=== PATIENT | female | born 1950 | race Caucasian/White ===

== ENCOUNTER → 2017-11-20 12:00 | Outpatient (CLI) | payer OTHER, SELFPAY ==
[2017-11-20 14:04] LABS: Absolute Lymphocyte Count 1.81 X10^3/ul (0.83-4.51); Basophil# 0.02 X10^3/uL; Basophil% 0.2 % (0-1); Eosinophils% 2.3 % (0-5); Hematocrit 39.4 % (37-47); Hemoglobin 12.9 g/dl (12.0-15.0); Lymphocyte # 1.81 X10^3/ul (4.0); Lymphocyte % 20.9 % (19-41); Mean Corp Hgb Conc 32.7 g/gl (32-36); Mean Corpuscular Hgb 29.1 pg (27.0-32.0); Mean Corpuscular Volume 88.7 fL (81-99); Mean Platelet Vol. 10.6 fl (6.2-12.0); Monocyte# 0.61 X10^3/uL; Monocyte% 7.1 % (0-10); Neutrophil # 5.99 X10^3/uL (2.7-7.7); Neutrophil % 69.3 % (47-70); Platelet Count 298 K/mm3 (150-450); RBC Distribution Width CV 14.5 % (11.6-14.6); Red Blood Count 4.44 M/mm3 (4.2-5.4); White Blood Count 8.7 K/mm3 (4.4-11.0)
[2017-11-20 14:05] LABS: POSITIVE COUNT NO; POSITIVE DIFFERENTIAL NO; POSITIVE MORPHOLOGY NO
[2017-11-20 14:20] LABS: ALB/GLOB Ratio 0.8 RATIO (0.9-2.4); AST(SGOT) 16 U/L (15-37); Alanine Aminotransfer ALT/SGPT 19 U/L (12-78); Albumin, Serum 3.4 g/dL (3.4-5.0); Alkaline Phosphatase 60 U/L (45-117); Anion Gap 7 (5-15); BUN 22 mg/dL (7-18); BUN/Creat Ratio 19.1 RATIO (10-20); Calcium,Total 8.9 mg/dL (8.5-10.1); Chloride 103 mmol/L (98-107); Creatinine, Serum 1.15 mg/dL (0.55-1.02); EST Glomerular Filtration Rate 50 mL/min (>60); Est Glom Filt Rate - Afr Amer 61 mL/min (>60); Globulin 4.3 g/dL (2.2-4.2); Glucose 101 mg/dL (70-110); Potassium 3.3 mmol/L (3.5-5.1); Protein, Total 7.7 g/dL (6.4-8.2); Sodium Level 140 mmol/L (136-145)
== END ==
PROVIDERS: Family Provider Family Medicine; PCP Family Medicine; Visit Provider Family Medicine
DX: K58.9 Irritable bowel syndrome, unspecified (principal)
CPT/HCPCS: 36415; 80053; 85025

== ENCOUNTER → 2018-02-22 09:47 | Outpatient (CLI) | payer OTHER, SELFPAY ==
[2018-02-22 12:49] LABS: Anion Gap 9 (5-15); BUN 21 mg/dL (7-18); BUN/Creat Ratio 16.9 RATIO (10-20); Calcium,Total 8.7 mg/dL (8.5-10.1); Chloride 104 mmol/L (98-107); Cholesterol 187 mg/dL (200); Creatinine, Serum 1.24 mg/dL (0.55-1.02); EST Glomerular Filtration Rate 46 mL/min (>60); Est Glom Filt Rate - Afr Amer 56 mL/min (>60); Glucose 84 mg/dL (74-106); High Density Lipoprotein 51 mg/dL; Potassium 2.9 mmol/L (3.5-5.1); Sodium Level 142 mmol/L (136-145); Triglycerides 103 mg/dL; Very Low Density Lipoprotein 21 mg/dL (5-40)
[2018-02-22 12:56] LABS: Vitamin D,25 Hydroxy 55.5 ng/mL (29.95-100.01)
== END ==
PROVIDERS: Family Provider Family Medicine; PCP Family Medicine; Visit Provider Family Medicine
DX: I10 Essential (primary) hypertension (principal); E55.9 Vitamin D deficiency, unspecified
CPT/HCPCS: 36415; 80048; 80061; 82306

== ENCOUNTER → 2018-03-02 09:50 | Outpatient (CLI) | payer OTHER, SELFPAY ==
[2018-03-02 12:20] LABS: Anion Gap 8 (5-15); BUN 17 mg/dL (7-18); Calcium,Total 8.7 mg/dL (8.5-10.1); Chloride 106 mmol/L (98-107); Creatinine, Serum 1.21 mg/dL (0.55-1.02); EST Glomerular Filtration Rate 47 mL/min (>60); Est Glom Filt Rate - Afr Amer 57 mL/min (>60); Glucose 82 mg/dL (74-106); Potassium 3.7 mmol/L (3.5-5.1); Sodium Level 140 mmol/L (136-145)
== END ==
PROVIDERS: Family Provider Family Medicine; PCP Family Medicine; Visit Provider Family Medicine
DX: I10 Essential (primary) hypertension (principal)
CPT/HCPCS: 36415; 80048

== ENCOUNTER → 2018-05-10 09:33 | Outpatient (CLI) | payer OTHER, SELFPAY ==
--- NOTE | 2018-05-10 09:36 | ECHOCS_ITS ---
Reason For Study: AFIB-FLUTTER Procedure This was a 2D Doppler, Color Flow transthoracic echocardiogram. Exam performed in department. Left Ventricle Normal LV size. Mild concentric left ventricular hypertrophy. Left ventricular systolic function is normal. Septal motion consistent with IVCD. The estimated ejection fraction is 53 %. No regional wall motion abnormalities noted. Right Ventricle Normal RV size. ICD or pacer leads identified within the right ventricle. Normal systolic function. Atria The left atrium is moderately enlarged. The right atrium is mildly enlarged. Mitral Valve Normal mitral valve. Mild-Moderate (1-2+) eccentric mitral valve insufficiency. Tricuspid Valve Normal tricuspid valve. Mild (1+) tricuspid valve insufficiency. Pulmonary artery systolic pressure is 42 mmHg. Mild pulmonary hypertension. Aortic Valve Trisinus/trileaflet aortic valve. Mild focal aortic valve calcification. Mild (1+) eccentric aortic valve insufficiency. Pulmonic Valve Normal pulmonic valve. Great Vessels Normal aortic root. The pulmonary artery is normal size. Normal inferior vena cava. Pericardium/Pleural No pericardial effusion. Medication 22 gauge I.V. with prn adaptor inserted into right arm. Diluted definity 4ml given slow IV push to enhance endocardial definition. MMode/2D Measurements & Calculations LVIDd: 5.2 cm IVSd: 1.2 cm LVOT diam: 4.6 cm LVIDs: 4.3 cm LVPWd: 1.2 cm LVOT area: 16.6 cm2 RVDd: 3.4 cm FS: 18.0 % Ao root diam: 3.6 cm LAV(MOD-bp): 123.4 ml EDV(MOD-sp4): 149.1 ml LA dimension: 4.6 cm LAV(MOD-bp) Indexed: 60.1 ml/m2 ESV(MOD-sp4): 116.3 ml LAV(MOD-sp2): 129.9 ml EF(MOD-sp4): 22.0 % LAV(MOD-sp4): 112.5 ml SV(MOD-sp4): 32.8 ml LA A4 area: 31.4 cm2 RA A4 area: 23.9 cm2 Time Measurements MV dec time: 0.21 sec Doppler Measurements & Calculations MV E max jelena: 96.6 cm/sec Ao V2 max: 147.8 cm/sec LV V1 max: 81.9 cm/sec MV A max jelena: 35.2 cm/sec Ao max P.7 mmHg LV V1 max P.7 mmHg MV E/A: 2.7 DELMA(V,D): 9.2 cm2 PA V2 max: 107.6 cm/sec TR max jelena: 307.3 cm/sec TR max P.8 mmHg Interpretation Summary Normal LV size. Mild concentric left ventricular hypertrophy. Left ventricular systolic function is normal. The estimated ejection fraction is 53 %. Mild focal aortic valve calcification. Mild (1+) eccentric aortic valve insufficiency. Septal motion consistent with IVCD. Pulmonary artery systolic pressure is 42 mmHg. Mild pulmonary hypertension. Ordering Physician: Shahid Alejandro Referring Physician: JOYCELYN GARCIA Performed By: Roseann Lyon RDCS
== END ==
PROVIDERS: Family Provider Family Medicine; PCP Family Medicine; Visit Provider Internal Medicine Cardiovascular Disease
DX: I48.91 Unspecified atrial fibrillation (principal); I48.92 Unspecified atrial flutter
CPT/HCPCS: 93306; Q9957; A4216; C8929

== ENCOUNTER 2018-08-04 04:44 | Emergency (ER) | payer MEDICARE, OTHER, SELFPAY ==
[2018-08-04 04:45] VITALS: BP 147/86; PULSE 58; RESP 20; TEMP 36.8; O2SAT 94; BMI 41.7
--- NOTE | 2018-08-04 04:56 | RAD_ITS ---
STUDY: X-RAY - RIGHT ANKLE REASON FOR EXAM: Female, 67 years old. Pain adjacent to the right lateral malleolus. TECHNIQUE: 3 view(s) of the ankle. COMPARISON: None. FINDINGS: Normal visualized distal tibia and fibula. Normal medial and lateral malleoli. Normal tibiotalar articulation and ankle mortise. Normal visualized talus and calcaneus. The visualized subtalar, talonavicular, calcaneocuboid and tarsal articulations are normal. Mild ankle swelling. RAD/Ankle min 3 Views IMPRESSION: Mild ankle swelling. No fracture identified. Electronically Signed: Brijesh Mcleod MD at 5:48 EDT , Service support ,
--- NOTE | 2018-08-04 04:57 | ED.VISSUMM ---
- ER Visit Summary Date of Service: 08/04/18 Chief Complaint: Right ankle pain History of Present Illness: The patient is a 67 F presents for evaluation of right ankle pain and swelling. Yesterday sitting cross ankle, states had that position for an hour, felt her foot go to sleep. States change positions, paresthesia improved however pain started. History of osteoporosis. Denies any blunt injuries. Took 2 Tylenols yesterday. History of atrial fibrillation on Xarelto for the past year. No history of fractures. Patient with pain just wanted to make sure there is no fractures. Physical Examination: General: Alert and oriented ?3, no acute distress HEENT: Normocephalic, atraumatic. Moist mucosa membranes Neck: supple, nontender. Cardiovascular: Irregular rhythm, Respiratory: Normal breath sounds, symmetric, no distress Abdomen: Soft, nontender, nondistended Extremities: Right lower extremity: Tender palpation lateral malleolus, no medial malleolus tenderness. No knee tenderness. No foot tenderness. Skin intact. DP pulses intact. Neuro: no focal neurological deficits. Test Results: Right ankle x-ray: No fracture or dislocation. Mild soft tissue swelling. Emergency Department Course: Ice is placed. Declined any additional medications. X-ray negative for fracture dislocation. Plan Vicente wrap. She is able to ambulate. She continue Tylenol. Patient on Xarelto, pulses intact distally, low likelihood of any blood clots. Discussed treating as contusion with rice therapy. Patient monitor symptoms follow-up with PCP. All questions were answered. Treatment Plan: [] Disposition: Discharge Impression: Right ankle contusion This note was generated with [employer] dictation software. It may contain incorrect words, spelling, and punctuation that were not noted in review of the chart prior to signing ED Disposition - Plan for ED Patient: Disposition: Home or Assisted Living Chief Complaint: Lower Extremity Injury Diagnosis: Contusion of right ankle Instructions: ED Contusion Lower Ext Referrals: Norberto Shearer MD [Primary Care Provider] - 5-7 Days Additional Instructions: Negative x-ray. Continue Tylenol every 6 hours as needed. Continue to ice and elevate.
[2018-08-04 06:00] VITALS: BP 138/72; PULSE 88; RESP 16; O2SAT 99
== END 2018-08-04 06:00 | disposition home or self-care (01) ==
PROVIDERS: Emergency Provider Emergency Medicine; Family Provider Family Medicine; PCP Family Medicine
DX: S90.01XA Contusion of right ankle, initial encounter (principal); I48.91 Unspecified atrial fibrillation; J44.9 Chronic obstructive pulmonary disease, unspecified; K21.9 Gastro-esophageal reflux disease without esophagitis; I10 Essential (primary) hypertension; E78.00 Pure hypercholesterolemia, unspecified; Z79.02 Long term (current) use of antithrombotics/antiplatelets; Z79.51 Long term (current) use of inhaled steroids; Z79.82 Long term (current) use of aspirin; Z79.899 Other long term (current) drug therapy; X50.1XXA Overexertion from prolonged static or awkward postures, initial encounter; Y93.89 Activity, other specified; Y92.89 Other specified places as the place of occurrence of the external cause; Y99.8 Other external cause status
CPT/HCPCS: 73610; 99282

== ENCOUNTER → 2018-11-03 08:48 | Outpatient (CLI) | payer MEDICARE, SELFPAY ==
--- NOTE | 2018-11-03 08:52 | BI_ITS ---
MAMMOGRAPHY - BILATERAL SCREENING REASON FOR EXAM: Female, 68 years old. Routine annual screening examination. PERTINENT HISTORY: Non-contributory. TECHNIQUE: Digital bilateral breast gene (3D mammographic acquisition) in the CC and MLO projections. 2-D mediolateral oblique (MLO) and craniocaudad (CC) views of both breasts were obtained. CAD: Full Field Digital Mammography with Computer Added Detection was performed. COMPARISON: Comparison is made with prior study dated August 27, 2017. FINDINGS: Breast Composition: There are scattered areas of fibroglandular density. There are no dominant masses or suspicious calcifications. Stable 8 mm x 4 mm well-defined nodule in the retroareolar region this is unchanged. Once again, a pacemaker battery pack is seen in the left axillary region. No other significant abnormalities are identified. There has been no significant change since the prior study. BI/SCREENING MAMM (CAD), BILAT IMPRESSION: Stable bilateral screening mammogram. Yearly follow-up mammogram recommended. (A) ASSESSMENT CATEGORY: BIRADS Category 2: Benign. A letter regarding these results will be sent to the patient by the facility within 30 days. Approximately 10% of breast cancers are not detected by mammography. A normal mammogram should not delay biopsy of a clinically suspicious abnormality. [id number] Electronically Signed: López Kenney MD at 11:18 EST Tel [phone], Service support ,
== END ==
PROVIDERS: Family Provider Family Medicine; PCP Family Medicine; Visit Provider Nurse Practitioner Women's Health
DX: Z12.31 Encounter for screening mammogram for malignant neoplasm of breast (principal)
CPT/HCPCS: 77063; 77067

== ENCOUNTER → 2018-12-08 11:02 | Outpatient (CLI) | payer MEDICARE, OTHER, SELFPAY ==
[2018-11-03 09:55] VITALS: BMI 42.2
[2018-12-08 13:23] LABS: Anion Gap 10 (5-15); BUN 23 mg/dL (7-18); BUN/Creat Ratio 16.7 RATIO (10-20); Calcium,Total 9.6 mg/dL (8.5-10.1); Chloride 103 mmol/L (98-107); Cholesterol 218 mg/dL (200); Creatinine, Serum 1.38 mg/dL (0.55-1.02); EST Glomerular Filtration Rate 41 mL/min (>60); Est Glom Filt Rate - Afr Amer 49 mL/min (>60); Glucose 86 mg/dL (74-106); High Density Lipoprotein 54 mg/dL; Potassium 3.1 mmol/L (3.5-5.1); Sodium Level 141 mmol/L (136-145); Triglycerides 135 mg/dL; Very Low Density Lipoprotein 27 mg/dL (5-40)
== END ==
PROVIDERS: Family Provider Family Medicine; PCP Family Medicine; Visit Provider Family Medicine
DX: I10 Essential (primary) hypertension (principal)
CPT/HCPCS: 36415; 80048; 80061

== ENCOUNTER → 2019-01-10 10:43 | Outpatient (CLI) | payer MEDICARE, OTHER, SELFPAY ==
[2018-11-03 09:55] VITALS: BMI 42.2
[2019-01-10 10:47] LABS: Mucous, Urine 0 SEEN /hpf (<or=2+)
[2019-01-10 12:06] LABS: Color, Urine Yellow (Yellow); Glucose, Dipstick Normal (Normal); Ketone-Dipstick 5 mg/dl (Negative); Leukocyte Esterase-Dipstick 100 /ul (Negative); Nitrite-Dipstick Negative (Negative); Occult Blood-Urine 250 /ul (Negative); Protein-Dipstick 100 mg/dl (Negative); Urine Clarity Sl. Cloudy (Clear); Urine Urobilinogen 1 mg/dl (Normal)
[2019-01-10 12:08] LABS: Urine Bilirubin Dipstick 3 mg/dL (Negative)
[2019-01-10 12:11] LABS: White Blood Cells 5-10 SEEN /hpf (0-5)
[2019-01-10 12:12] LABS: Bacteria 1+ /hpf (None Seen); Hyaline Cast 10-25 SEEN /lpf (0-5); Red Blood Cells-Urine 5-10 SEEN /hpf (0-5); Squamous Epithelial Cells - UA 0-5 SEEN /hpf (5-10)
== END ==
PROVIDERS: Family Provider Family Medicine; PCP Family Medicine; Referring Provider Family Medicine; Visit Provider Family Medicine
DX: R31.9 Hematuria, unspecified (principal)
CPT/HCPCS: 81001

== ENCOUNTER → 2019-03-02 09:27 | Outpatient (CLI) | payer MEDICARE, OTHER, SELFPAY ==
[2018-11-03 09:55] VITALS: BMI 42.2
[2019-03-02 10:39] LABS: Anion Gap 7 (5-15); BUN 27 mg/dL (7-18); BUN/Creat Ratio 18.9 RATIO (10-20); Calcium,Total 9.5 mg/dL (8.5-10.1); Chloride 103 mmol/L (98-107); Creatinine, Serum 1.43 mg/dL (0.55-1.02); EST Glomerular Filtration Rate 39 mL/min (>60); Est Glom Filt Rate - Afr Amer 47 mL/min (>60); Glucose 100 mg/dL (74-106); Potassium 3.1 mmol/L (3.5-5.1); Sodium Level 141 mmol/L (136-145)
== END ==
PROVIDERS: Family Provider Family Medicine; PCP Family Medicine; Referring Provider Family Medicine; Visit Provider Family Medicine
DX: I10 Essential (primary) hypertension (principal)
CPT/HCPCS: 36415; 80048

== ENCOUNTER → 2019-03-16 | Outpatient (CLI) | payer MEDICARE, OTHER, SELFPAY ==
[2018-11-03 09:55] VITALS: BMI 42.2
[2019-03-16 10:49] LABS: Anion Gap 8 (5-15); BUN 22 mg/dL (7-18); BUN/Creat Ratio 19.8 RATIO (10-20); Calcium,Total 8.4 mg/dL (8.5-10.1); Chloride 110 mmol/L (98-107); Creatinine, Serum 1.11 mg/dL (0.55-1.02); EST Glomerular Filtration Rate 52 mL/min (>60); Est Glom Filt Rate - Afr Amer 63 mL/min (>60); Glucose 96 mg/dL (74-106); Potassium 3.9 mmol/L (3.5-5.1); Sodium Level 143 mmol/L (136-145)
== END | disposition home or self-care (01) ==
LOC: MFPLAB 08:49
PROVIDERS: Family Provider Family Medicine; PCP Family Medicine; Referring Provider Family Medicine; Visit Provider Family Medicine
DX: I10 Essential (primary) hypertension (principal)
CPT/HCPCS: 36415; 80048

== ENCOUNTER 2019-04-18 10:24 | Emergency (ER) | payer MEDICARE, OTHER, SELFPAY ==
[2018-11-03 09:55] VITALS: BMI 42.2
[2019-04-18 10:25] VITALS: BP 152/96; PULSE 81; RESP 17; TEMP 36.6; O2SAT 95; BMI 41.1
--- NOTE | 2019-04-18 12:35 | RAD_ITS ---
STUDY: X-RAY - LEFT FOOT CLINICAL: Female, 68 years old. TECHNIQUE: 3 view(s) of the foot. COMPARISON: None. FINDINGS: Normal talus, calcaneus, and tarsal bones. Normal visualized subtalar, talonavicular, calcaneocuboid, tarsal and tarsometatarsal articulations. Normal metatarsi. Normal metatarsophalangeal joint of the great toe. Normal tibial and fibular sesamoid bones. Normal interphalangeal joint of the great toe. Normal phalanges of the great toe. Normal second through fifth metatarsophalangeal joints. Normal interphalangeal joints and phalanges of the lesser toes. The soft tissue structures are unremarkable. There is minimal plantar heel spur RAD/Foot min 3 Views IMPRESSION: Minimal plantar fasciitis. No fracture or dislocation Electronically Signed: Jadiel Haider, at 13:30 EDT Tel , Service support ,
--- NOTE | 2019-04-18 14:14 | ED.VISSUMM ---
- ER Visit Summary Date of Service: 04/18/19 Chief Complaint: Left foot pain History of Present Illness: The patient is a 68 F with left foot pain for the past several days. Her left fourth toe is somewhat pulled forward and she has pain in the tendons across the top of her foot laterally. She does not know of any injury. Physical Examination: Vital signs grossly unremarkable. Patient sitting in a nance chair. She is in no acute distress. Left lower extremity examination reveals left fourth toe to be mild erythematous. Skin is not excessively warm but I would expect for cellulitis. There is no open wound. She has mild tenderness across the dorsal foot laterally. No ecchymosis or abrasions. Test Results: Left foot x-rays reveal minimal plantar fasciitis. No evidence of stress fracture. Emergency Department Course and Treatment: Patient was placed in Vicente wrap. I wrote her prescription for prednisone for tendinitis. She is scheduled to have cataract surgery in 3 days. She will talk to her surgeon before taking the medication to ensure that would not delay her surgery at all. Treatment Plan: [] Disposition: Discharge Impression: Tendinitis left foot This note was generated with [email or web address] dictation software. It may contain incorrect words, spelling, and punctuation that were not noted in review of the chart prior to signing ED Disposition - Plan for ED Patient: Disposition: Home or Assisted Living Instructions: Tendonitis Prescriptions: Prednisone [Deltasone] 40 mg PO DAILY #10 tab Prescription Printed Referrals: Norberto Shearer MD [Primary Care Provider] - 1 Week
[2019-04-18 14:23] VITALS: BP 144/96; PULSE 65; RESP 16; O2SAT 96
== END 2019-04-18 14:30 | disposition home or self-care (01) ==
PROVIDERS: Emergency Provider Emergency Medicine; Family Provider Family Medicine; PCP Family Medicine
DX: M77.52 Other enthesopathy of left foot and ankle (principal); I10 Essential (primary) hypertension; I27.20 Pulmonary hypertension, unspecified; I48.91 Unspecified atrial fibrillation; Z79.82 Long term (current) use of aspirin; Z79.899 Other long term (current) drug therapy
CPT/HCPCS: 73630; 99282

== ENCOUNTER → 2019-06-10 | Outpatient (CLI) | payer MEDICARE, OTHER, SELFPAY ==
[2019-05-05 09:06] VITALS: BMI 40.8
[2019-06-10 10:58] LABS: Anion Gap 7 (5-15); BUN 16 mg/dL (7-18); BUN/Creat Ratio 12.7 RATIO (10-20); Calcium,Total 8.8 mg/dL (8.5-10.1); Chloride 108 mmol/L (98-107); Cholesterol 169 mg/dL (200); Creatinine, Serum 1.26 mg/dL (0.55-1.02); EST Glomerular Filtration Rate 45 mL/min (>60); Est Glom Filt Rate - Afr Amer 54 mL/min (>60); Glucose 85 mg/dL (74-106); High Density Lipoprotein 47 mg/dL; Potassium 3.6 mmol/L (3.5-5.1); Sodium Level 142 mmol/L (136-145); Triglycerides 107 mg/dL; Very Low Density Lipoprotein 21 mg/dL (5-40)
== END | disposition home or self-care (01) ==
LOC: MTLAB 09:47
PROVIDERS: Family Provider Family Medicine; PCP Family Medicine; Referring Provider Family Medicine; Visit Provider Family Medicine
DX: I10 Essential (primary) hypertension (principal)
CPT/HCPCS: 36415; 80048; 80061

== ENCOUNTER → 2019-07-13 | Outpatient (CLI) | payer MEDICARE, OTHER, SELFPAY ==
[2019-05-05 09:06] VITALS: BMI 40.8
== END | disposition home or self-care (01) ==
PROVIDERS: Family Provider Family Medicine; PCP Family Medicine; Referring Provider Family Medicine; Visit Provider Family Medicine
DX: R19.7 Diarrhea, unspecified (principal)

== ENCOUNTER → 2019-07-14 | Outpatient (CLI) | payer MEDICARE, OTHER, SELFPAY ==
[2019-05-05 09:06] VITALS: BMI 40.8
== END | disposition home or self-care (01) ==
PROVIDERS: Family Provider Family Medicine; PCP Family Medicine; Referring Provider Family Medicine; Visit Provider Family Medicine
DX: R19.7 Diarrhea, unspecified (principal)
CPT/HCPCS: 87493; 87506

== ENCOUNTER 2019-08-25 12:21 | Observation (INO) | payer MEDICARE, OTHER, SELFPAY ==
[2019-05-05 09:06] VITALS: BMI 40.8
[2019-08-25 12:22] VITALS: BP 150/88; PULSE 85; RESP 18; TEMP 36.8; O2SAT 96; BMI 41.1
--- NOTE | 2019-08-25 12:35 | EKG12_ITS ---
Test Reason : SOB Blood Pressure : / mmHG Vent. Rate : 067 BPM Atrial Rate : 085 BPM P-R Int : 000 ms QRS Dur : 172 ms QT Int : 484 ms P-R-T Axes : 000 -63 114 degrees QTc Int : 511 ms Ventricular-paced rhythm Abnormal ECG Confirmed by MARCELA MCCARTHY, JOYCELYN ([id number]), scientific editor PEGGY MELTON ([id number]) on 08/29/2019 9:27:58 AM Referred By: NATA Confirmed By:JOYCELYN MEDRANO MD
--- NOTE | 2019-08-25 12:35 | RAD_ITS ---
STUDY: X-RAY CHEST REASON FOR EXAM: Female, 68 years old. One-month history of shortness of breath. TECHNIQUE: PA and lateral views of the chest. COMPARISON: Comparison is made with prior study dated January 02, 2016. FINDINGS: Mild degree of increased markings at the lung bases suggest lobar scarring. This is unchanged. Mild degree of vascular congestion. Blunting of both costophrenic angles posteriorly. There is mild cardiac enlargement. A left-sided dual-chamber pacemaker is seen. Normal mediastinum and celia. Normal visualized pulmonary arteries. There is atherosclerotic tortuosity of the aortic arch and descending thoracic aorta. There are diffuse degenerative changes of the visualized thoracic spine. Normal visualized ribs, clavicles, and shoulders. There is no demonstrated abnormality of the visualized soft tissue structures of the upper abdomen. RAD/Chest PA and Lateral IMPRESSION: Findings suggest a mild degree of vascular congestion with a scarring at the lung bases and blunting of both costophrenic angles. Electronically Signed: López Kenney, at 14:11 EDT , Service support ,
[2019-08-25 12:55] LABS: Basophil# 0.02 X10^3/uL; Basophil% 0.2 % (0-1); Eosinophil# 0.13 X10^3/uL; Eosinophils% 1.5 % (0-5); Hematocrit 35.2 % (37-47); Hemoglobin 10.4 g/dL (12.0-15.0); Lymphocyte % 14.7 % (19-41); Mean Corp Hgb Conc 29.5 g/dL (32-36); Mean Corpuscular Hgb 24.1 pg (27.0-32.0); Mean Corpuscular Volume 81.7 fL (81-99); Mean Platelet Vol. 10.1 fl (6.2-12.0); Monocyte# 0.39 X10^3/uL; Monocyte% 4.4 % (0-10); NRBC Flagged by Analyzer 0 % (0-5); Neutrophil # 6.98 X10^3/uL (2.7-7.7); Neutrophil % 78.6 % (47-70); Platelet Count 341 K/mm3 (150-450); RBC Distribution Width CV 17.4 % (11.6-14.6); RBC Distribution Width SD 51.2 fl (35.1-43.9); Red Blood Count 4.31 M/mm3 (4.2-5.4); White Blood Count 8.9 K/mm3 (4.4-11.0)
[2019-08-25 13:08] LABS: D-Dimer Quantitative (DVT/PE) 0.27 FEU/ug/m (0.27-0.49)
[2019-08-25 13:09] LABS: Anion Gap 10 (5-15); BUN 17 mg/dL (7-18); BUN/Creat Ratio 14.2 RATIO (10-20); Calcium,Total 8.8 mg/dL (8.5-10.1); Chloride 104 mmol/L (98-107); EST Glomerular Filtration Rate 48 mL/min (>60); Est Glom Filt Rate - Afr Amer 58 mL/min (>60); Estimated Creatinine Clearance 37.63 ml/min; Glucose 100 mg/dL (74-106); Potassium 3.3 mmol/L (3.5-5.1); Sodium Level 141 mmol/L (136-145)
[2019-08-25 13:21] LABS: BNP,B-Type NATRIURETIC PEPTIDE 363.1 pg/mL (0-100)
--- NOTE | 2019-08-25 13:39 | NURSING ---
DR SHRUTHI PEACE
--- NOTE | 2019-08-25 13:44 | ED.DCSUM_ITS ---
- ER Visit Summary Date of Service: 08/25/19 Chief Complaint: Shortness of breath History of Present Illness: The patient is a 68 F who presents with shortness of breath. Is been ongoing for a month. Is worse when she exerts herself. She has a slight cough is nothing new for her. No chest pain, no fevers, no rhinorrhea. She was hypoxic in the PCP office today when she was ambulating so he sent her here for admission for a stress test. She is on Xarelto for history of atrial fibrillation. She does have a pacemaker. Physical Examination: Vital signs reviewed. HEENT exam unremarkable. Heart is regular rate and rhythm without murmurs. Lungs are clear to auscultation. Abd omen is soft and nontender. Extremities reveal no edema. Peripheral pulses are equal. Skin exam normal. Neurologic exam normal. Test Results: Chest x-ray has chronic changes per my interpretation. Radiologist interpretation pending. Hemoglobin 10.4. Troponin and d-dimer normal. EKG is paced with no ST changes. BNP 363 Emergency Department Course and Treatment: The patient's troponin and d-dimer are normal. Per the request of the PCP the patient will be admitted and discussed with the hospitalist Treatment Plan: [] Disposition: Admit Impression: Exertional dyspnea This note was generated with [employer] dictation software. It may contain incorrect words, spelling, and punctuation that were not noted in review of the chart prior to signing ED Disposition - Plan for ED Patient: Referrals: Norberto Shearer MD [Primary Care Provider] -
--- NOTE | 2019-08-25 13:51 | NURSING ---
PCU OBS EXERTIONAL DYSPNEA SHRUTHI
--- NOTE | 2019-08-25 13:57 | HP.PCM_ITS ---
Problem List (1) Anginal equivalent Status: Acute History of Present Illness Date of Admission: 08/25/19 Chief Complaint: dyspnea on exertion The patient is a 68 year old F who over the past month has had increasing dyspnea on exertion. Patient states that when she walks from one end of her house to the other, which is roughly 70 feet, she is short of breath. The shortness of breath improves with stopping and catching her breath. She denies any associated symptoms, such as: Chest pain, diaphoresis, nausea, vomiting. She is never had issues like this before. She went and saw her primary care doctor, Dr. Shearer, she had a pulse ox of 93% on room air at rest and then with ambulation, was 92%. She was then directed to emergency room. In the emergency room, patient underwent a work-up that showed an EKG that was ventricular paced, d-dimer that was normal.[] Past Medical History Past Medical History (Chronic Problems): Chronic Problems (Last Reviewed 05/05/19 @ 09:52 by Shahid Alejandro MD) Chronic atrial fibrillation (Chronic) Presence of permanent cardiac pacemaker (Chronic 02/25/11) Essential (primary) hypertension (Chronic) Secondary pulmonary arterial hypertension (Chronic) Hyperlipidemia (Chronic) Atherosclerotic heart disease of [place] coronary artery without angina pectoris (Chronic) Paroxysmal atrial tachycardia (Chronic) Second degree atrioventricular block (Chronic) Medical History: Medical History (Last Reviewed 05/05/19 @ 09:52 by Shahid Alejandro MD) Chronic atrial fibrillation (Chronic) I48.2 Essential (primary) hypertension (Chronic) I10 Secondary pulmonary arterial hypertension (Chronic) I27.21 Hyperlipidemia (Chronic) E78.5 Atherosclerotic heart disease of [place] coronary artery without angina pectoris (Chronic) I25.10 Paroxysmal atrial tachycardia (Chronic) I47.1 Second degree atrioventricular block (Chronic) I44.1 Asthma J45.909 COPD (chronic obstructive pulmonary disease) J44.9 GERD (gastroesophageal reflux disease) K21.9 IBS (irritable bowel syndrome) K58.9 Metabolic syndrome E88.81 Obesity E66.9 Osteoarthritis M19.90 Osteoporosis M81.0 Cervical cancer C53.9 2010:diagnosed after supracervical hysterectomy. Cervix remains(small/stenotic). Radiation and chemo. History of DVT (deep vein thrombosis) Z86.718 Impacted cerumen of both ears H61.23 NSVT (nonsustained ventricular tachycardia) I47.2 Atrial fibrillation, persistent (Inactive) I48.1 Allergies amlodipine besylate [From Norvasc] Allergy (Verified 08/25/19 12:24) Unknown codeine Allergy (Verified 08/25/19 12:24) Unknown Iodinated Contrast Media [Iodinated Contrast Media - IV Dye] Allergy (Verified 08/25/19 12:24) Hives hydrochlorothiazide Adverse Reaction (Verified 08/25/19 12:24) hypokalemia envelope adhesive Adverse Reaction (Uncoded 08/25/19 12:24) Unknown Home Medications: Ambulatory Orders Medication Instructions Recorded Allopurinol [Zyloprim] 300 mg PO DAILY 07/28/13 Aspirin E.C. [Ecotrin] 81 mg PO DAILY@0800 07/28/13 Diltiazem HCl [Diltiazem ER] 120 mg PO DAILY 07/28/13 Omeprazole [Prilosec] 20 mg PO DAILY 07/28/13 Potassium Chloride [K-Dur] 40 meq PO DAILY 07/28/13 Pravastatin Sodium [Pravachol] 40 mg PO DAILY 04/13/14 Sertraline HCl [Zoloft] 150 mg PO DAILY 06/24/16 Albuterol Inhaler [Ventolin Hfa 1 puff INHALATION Q4H PRN PRN 08/04/18 (SP)] Cholecalciferol (Vitamin D3) 2,000 unit PO DAILY 08/04/18 [Vitamin D3] Denosumab [Prolia] 60 mg SQ 04/18/19 rivaroxaban 20 mg tablet 20 mg PO QDAY #90 tab 05/31/19 losartan 50 mg tablet 50 mg PO DAILY #90 tab 06/21/19 Surgical History: Surgical History (Last Reviewed 08/25/19 @ 14:01 by Jose Rafael Ward DO) Presence of permanent cardiac pacemaker (Chronic) Onset Date: 02/25/11 Z95.0 H/O hysterectomy with oophorectomy cervix remains History of cholecystectomy Z90.49 History of electrophysiologic study Onset Date: 02/25/11 Z98.890 History of left heart catheterization Onset Date: 07/29/13 Z98.890 History of tonsillectomy and adenoidectomy Z98.890 Surgical History: hysterectomy Smoking Status: Never smoker - *Family History Maternal Family History: Family History (Last Reviewed 08/25/19 @ 14:01 by Jose Rafael Ward DO) Mother Brain cancer Father Prostate cancer History Items: - - No coronary artery disease Review of Systems Constitutional: Denies: Anorexia, Chills, Fever Eyes: Denies: Blurred vision, Double vision HEENT: Denies: Head Aches, Sinus Congestion, Sinus Drainage Cardiovascular: Reports: Edema. Denies: Chest Pain, Palpitations Respiratory: Reports: Shortness of breath upon exertion. Denies: Cough Gastrointestinal: Denies: Abdominal Pain, Nausea, Vomiting Genitourinary: Denies: Dysuria Musculoskeletal: Denies: Joint Pain, Joint Tenderness Skin: Denies: Dryness, Jaundice Neurological: Reports: Balance problems Endocrine: Denies: Change in Body Habitus, Heat/ Cold Intolerance Hematologic/ Lymphatic: Reports: Hx of blood clot. Denies: Easy Bruising, Easy Bleeding Comment: All review of systems are otherwise negative except for as mentioned above and in the HPI. VTE Information - Inpt Only VTE Present on Admission: No VTE Mechan Device Prophylaxis: None VTE Pharm Prophylaxis ordered?: No Reason prophylaxis not ordered:: Procedure Not Indicated Patient Problems: Active and Suspected Problems (Last Reviewed 05/05/19 @ 09:52 by Shahid Alejandro MD) Anginal equivalent (Acute) - Physical Exam Vitals/I&O's: Vital Signs Temp Pulse Resp BP Pulse Ox 36.8 C 85 18 150/88 H 96 08/25/19 12:22 08/25/19 12:22 08/25/19 12:22 08/25/19 12:22 08/25/19 12:22 Oxygen Delivery Method Room Air Weight: 105.233 kg Body Mass Index (BMI) 41.1 General: Alert, Cooperative, No apparent distress, - - Story distress. No conversational dyspnea. HEENT: Atraumatic, Normocephalic Oral: Moist Mucosa, No Gingival or Mucosal Lesions/ Ulcerations Neck: No Nodes, Thyroid Normal Size and Texture Lungs: Clear to auscultation, Normal air movement, No rhonchi, No wheeze, No rales Cardiovascular: Regular rate, Regular Rhythm, Normal S1, Normal S2, No murmurs Abdomen: Bowel Sounds Present, Soft, Non Tender, Non-Distended, No Hepato- splenomegaly Extremities: No Calf Tenderness, Edema - trace Skin: No rashes, No breakdown Musculoskeletal: No Tenderness to Palpation of Joints or Extremities, No Muscle Wasting Neurological: Sensory exam intact to light touch and pain, Coordination normal Psych/Mental Status: Normal Affect, Appropriate Laboratory Results 08/25/19 12:43: WBC 8.9, RBC 4.31, Hgb 10.4 L, Hct 35.2 L, MCV 81.7, MCH 24.1 L, MCHC 29.5 L, RDW Std Deviation 51.2 H, RDW Coeff of Lily 17.4 H, Plt Count 341, MPV 10.1, Immature Gran % (Auto) 0.600, Neut % (Auto) 78.6 H, Lymph % (Auto) 14.7 L, [place] % (Auto) 4.4, Eos % (Auto) 1.5, Baso % (Auto) 0.2, Absolute Neuts (auto) 7.0, Absolute Lymphs (auto) 1.30, Nucleated RBC % 0 08/25/19 12:43: D-Dimer Quant (PE/DVT) 0.27 08/25/19 12:43: Sodium 141, Potassium 3.3 L, Chloride 104, Carbon Dioxide 27.0, Anion Gap 10, BUN 17, Creatinine 1.20 H, Estim Creat Clear Calc 37.63, Est GFR (MDRD) Af Amer 58 L, Est GFR (MDRD) Non-Af 48 L, BUN/Creatinine Ratio 14.2, Glucose 100, Calcium 8.8, Troponin I < 0.015 08/25/19 12:43: B-Natriuretic Peptide 363.1 H EKG reviewed and was ventricular paced Chest x-ray reviewed and showed prominent pulmonary vasculature but no overt heart failure nor infiltrate. Unchanged from 2016. Assessment/Plan All Active Problems (Last Reviewed 05/05/19 @ 09:52 by Shahid Alejandro MD) Anginal equivalent (Acute) 1. Anginal equivalent * Patient with dyspnea on exertion without chest pain. * Lung exam was unremarkable * D-dimer was negative and my review of chest x-ray was unremarkable * Patient has had a heart cath back in 2013 that was reportedly normal * We will repeat a stress test. Patient states that she would not be able to do a treadmill and so patient undergo a nuclear chemical stress test August 26 * Cycle troponins * We will start the patient on aspirin until we know the results of the stress test * Given the normal lung exam, I am not concerned about the patient being in asthma exacerbation. Patient has some subtle increased edema per her description and does have an elevated BNP but clinically does not appear to be in acute heart failure 2. VTE, chronic * Stable * Continue with rivaroxaban 3. Atrial fibrillation * Status post pacemaker and is ventricular paced rhythm * Anticoagulated with rivaroxaban * Continue with diltiazem ER 4. Hypertension * Stable * Continue with losartan 5. VTE prophylaxis: Low risk as she is observation status at this time 6. Advanced care planning: Discussed with patient. Patient wishes to be full CODE STATUS at this time. Code Visit OBSV E&M: [id number] Initial observation care L3
[2019-08-25 14:12] VITALS: BMI 41.1
[2019-08-25 14:24] VITALS: BP 142/80; PULSE 62; RESP 16; TEMP 36.8; O2SAT 94
[2019-08-25 14:24] LABS: Magnesium 1.1 mg/dL (1.6-2.6)
[2019-08-25 14:29] VITALS: PULSE 71
--- NOTE | 2019-08-25 14:40 | EKG12_ITS ---
Test Reason : CP ADMIT Blood Pressure : / mmHG Vent. Rate : 069 BPM Atrial Rate : 070 BPM P-R Int : 000 ms QRS Dur : 174 ms QT Int : 476 ms P-R-T Axes : 000 -56 100 degrees QTc Int : 510 ms Ventricular-paced rhythm Abnormal ECG Confirmed by MARCELA MCCARTHY, JOYCELYN ([id number]), writer editor PIPER GABRIEL ([id number]) on 08/30/2019 9:28:08 AM Referred By: SHRUTHI Confirmed By:JOYCELYN MEDRANO MD
[2019-08-25] MEDS: Aspirin 81 MG TAB.CHEW PO (14:58)
[2019-08-25 18:59] VITALS: PULSE 63
[2019-08-25 20:23] VITALS: BP 127/75; PULSE 65; RESP 18; TEMP 37; O2SAT 94
[2019-08-25] MEDS: Nortriptyline 25 MG Capsule PO (21:53)
[2019-08-25] MEDS: Pravastatin 40 MG Tablet PO (21:53)
[2019-08-25 22:58] VITALS: PULSE 63
[2019-08-26 02:30] VITALS: BP 125/84; PULSE 67; RESP 16; TEMP 36.7; O2SAT 93
[2019-08-26 03:01] VITALS: PULSE 63
[2019-08-26 05:41] LABS: Anion Gap 8 (5-15); BUN 21 mg/dL (7-18); BUN/Creat Ratio 15.2 RATIO (10-20); Calcium,Total 8.8 mg/dL (8.5-10.1); Chloride 108 mmol/L (98-107); Creatinine, Serum 1.38 mg/dL (0.55-1.02); EST Glomerular Filtration Rate 40 mL/min (>60); Est Glom Filt Rate - Afr Amer 49 mL/min (>60); Estimated Creatinine Clearance 32.72 ml/min; Glucose 97 mg/dL (74-106); Sodium Level 142 mmol/L (136-145)
[2019-08-26 05:53] VITALS: BP 130/83; PULSE 94; RESP 18; TEMP 37.2; O2SAT 93
[2019-08-26] MEDS: Losartan Potassium 50 MG Tablet PO (05:56)
[2019-08-26] MEDS: Aspirin 81 MG TAB.CHEW PO (05:56)
[2019-08-26 07:52] VITALS: PULSE 71
--- NOTE | 2019-08-26 11:25 | STRESSREP ---
Stress Test Report Date: 08-26-19 Procedure: Pharmacologic stress nuclear imaging study Indications: Chest pain; CAD; atrial dysrhythmia; permanent pacemaker Consent: Per the patient Procedure: The patient underwent pharmacologic (Regadenoson) evaluation with a peak heart rate of 89 beats per minute (58 %predicted maximal heart rate) and a peak blood pressure of 150/84 mmHg. The baseline ECG demonstrated atrial fibrillation with an electronic ventricular pacemaker. The peak pharmacologic ECG demonstrated no obvious ECG changes. There were occasional PVCs pretest and in recovery. There was no complaint of chest discomfort during pharmacologic infusion or recovery. The examination was discontinued secondary to completion of protocol. Impression: 1. Pharmacologic (Regadenoson) evaluation 2. Peak pharmacologic ECG with continued atrial fibrillation with an electronic ventricular pacemaker. 3. There were occasional PVCs pretest and in recovery. 4. Nuclear images pending Myocardial perfusion imaging study: Technique: The patient was injected with 15.0 millicuries of technetium 99m Cardiolite and subsequently rest SPECT Cardiolite nuclear imaging was obtained in the horizontal long, vertical long, and short axis views. The patient underwent pharmacologic (Regadenoson) evaluation with a peak heart rate of 89 beats per minute (58 % percent predicted maximal heart rate) and a peak blood pressure of 150/84 mmHg. The patient was injected with 35.0 millicuries of technetium 99m Cardiolite and subsequently stress SPECT Cardiolite nuclear imaging was obtained in the horizontal long, vertical long, and short axis views. A gated Cardiolite study at peak stress was obtained. Interpretation: Rest and stress SPECT Cardiolite nuclear imaging status post realignment, normalization, and attenuation correction demonstrate areas of diminished tracer uptake in portions of the mid to distal anterior, anteroseptal, anteroapical, and septal apical segments which appears to be more prominent at rest as opposed to stress. There is end systolic thickening and brightening. The gated Cardiolite study demonstrates myocardial thickening and inward wall motion. The reported LVEF is 38 %. Impression: 1. Rest and stress SPECT Cardiolite nuclear imaging demonstrate myocardial perfusion changes at rest which appear to improve status post stress appearing compatible with shifting soft tissue attenuation/artifact, however, an area of previous myocardial injury/infarction involving portions of the mid to distal anterior, anteroseptal, anteroapical, and septal apical segments cannot necessarily be excluded. 2. There are no myocardial perfusion changes considered diagnostic for associated stress-induced myocardial ischemia. 3. The gated Cardiolite study reports an LVEF of 38 %. This note was generated with [employer] software. It may contain incorrect words, spelling, and punctuation that were not noted in checking the note before signing.
[2019-08-26 11:53] VITALS: BP 127/79; PULSE 78; RESP 16; TEMP 36.7; O2SAT 95
--- NOTE | 2019-08-26 11:56 | DCINST_ITS ---
- Discharge Diagnoses Current Active Problems: Current Active and Chronic Problems (Last Reviewed 05/05/19 @ 09:52 by Shahid Alejandro MD) Anginal equivalent (Acute) You will use the following diet at home:: Cardiac Your food should be the consistency of: Regular Your liquids should be the consistency of: Regular/Thin Discharge Activity: Return to Normal Activity Allergies/Adverse Reactions: Allergies amlodipine besylate [From Norvasc] Allergy (Verified 08/25/19 14:14) Other cough codeine Allergy (Verified 08/25/19 14:14) Nausea/Vom/Diarrhea Iodinated Contrast Media [Iodinated Contrast Media - IV Dye] Allergy (Verified 08/25/19 12:24) Hives hydrochlorothiazide Adverse Reaction (Verified 08/25/19 12:24) hypokalemia envelope adhesive Adverse Reaction (Uncoded 08/25/19 14:14) Diarrhea Medications to take at Discharge Allopurinol [Zyloprim] 300 mg PO DAILY 07/28/13 Aspirin E.C. [Ecotrin] 81 mg PO DAILY@0800 07/28/13 Diltiazem HCl [Diltiazem 24Hr ER] 120 mg PO DAILY 07/28/13 Omeprazole [Prilosec] 20 mg PO DAILY 07/28/13 Sertraline HCl [Zoloft] 150 mg PO DAILY 06/24/16 Albuterol Inhaler [Ventolin Hfa] 1 puff INHALATION Q4H PRN PRN 08/04/18 Denosumab [Prolia] 60 mg SQ UD 04/18/19 rivaroxaban 20 mg tablet 20 mg PO QDAY #90 tab 05/31/19 losartan 50 mg tablet 50 mg PO DAILY #90 tab 06/21/19 Cholecalciferol (Vitamin D3) [D3-2000] 2,000 unit PO DAILY 08/25/19 Nortriptyline HCl [Pamelor] 25 mg PO QHS 08/25/19 Pravastatin Sodium 40 mg PO DAILY 08/25/19 Furosemide [Lasix] 40 mg PO DAILY #30 tab 08/26/19 The following prescriptions were given: Furosemide [Lasix] 40 mg PO DAILY #30 tab Transmission Status: Pending to [facility] Primary Care Physician: Norberto Shearer MD [Primary Care Provider] - Please follow up with your Primary Care Physician in: 1-2 weeks Test Results: Test results from this visit will be discussed in further detail at your follow- up appointment, if applicable. Please Follow Up With: Shahid Alejandro MD When: as directed Proposed Discharge Date: 08/26/19
--- NOTE | 2019-08-26 12:11 | ECHOCS_ITS ---
Reason For Study: CHF Procedure This was a 2D Doppler, Color Flow transthoracic echocardiogram. The study was technically difficult. Due to body habitus. Contrast injection was performed. Exam performed in department. Left Ventricle Mildly dilated left ventricle. Moderate concentric left ventricular hypertrophy. Mild segmental systolic dysfunction (see wall motion). The estimated ejection fraction is 45 %. Unable to assess diastolic dysfunction. Infero-Basal: Hypokinetic. Basal inferoseptal: Hypokinetic. Mid-Anterior : Hypokinetic. Mid-Lateral : Hypokinetic. Mid-Posterior: Hypokinetic. Mid-Inferior: Hypokinetic. Mid- inferoseptal : Hypokinetic. Mid-anteroseptal : Hypokinetic. Anterior [place] : Hypokinetic. Inferior [place] : Akinetic. Lateral [place] : Hypokinetic. Septal [place] : Akinetic. Right Ventricle Normal RV size. ICD or pacer leads identified within the right ventricle. Normal systolic function. Atria The left atrium is mildly enlarged. Normal right atrium. ICD or pacer leads identified within the right atrium. No doppler evidence for ASD. Mitral Valve There is no mitral annular calcification. Mild papillary muscle dysfunction of the mitral valve. Moderate (2+) mitral valve insufficiency. Tricuspid Valve Normal tricuspid valve. Moderately severe (3+) tricuspid valve insufficiency. Right ventricular systolic pressure estimated to be 47 mmHg. Aortic Valve Trisinus/trileaflet aortic valve. Moderate focal aortic valve calcification. Pulmonic Valve The pulmonic valve is not well visualized. Great Vessels Normal sized aortic root. Pericardium/Pleural No pericardial effusion. Medication Diluted definity 4.0ml given slow IV push to enhance endocardial definition. MMode/2D Measurements & Calculations LVIDd: 5.7 cm IVSd: 1.5 cm Ao root diam: 4.2 cm LVIDs: 4.4 cm LVPWd: 1.5 cm RVDd: 3.5 cm FS: 22.9 % LAV(MOD-bp): 108.7 ml LA A4 area: 29.1 cm2 LA dimension(2D): 5.3 cm LAV(MOD-bp) Indexed: 52.8 ml/m2 LAV(MOD-sp2): 110.8 ml LAV(MOD-sp4): 106.8 ml RA A4 area: 18.1 cm2 Doppler Measurements & Calculations MV E max jelena: 106.5 cm/sec Ao V2 max: 142.2 cm/sec LV V1 max: 116.8 cm/sec Ao max P.1 mmHg LV V1 max P.5 mmHg PA V2 max: 114.3 cm/sec TR max jelena: 313.1 cm/sec TR max P.3 mmHg Interpretation Summary The study was technically difficult. Contrast injection was performed. Mildly dilated left ventricle. Mild segmental systolic dysfunction (see wall motion). The estimated ejection fraction is 45 %. Moderate concentric left ventricular hypertrophy. The left atrium is mildly enlarged. Mild papillary muscle dysfunction of the mitral valve. Moderate (2+) mitral valve insufficiency. Moderately severe (3+) tricuspid valve insufficiency. Moderate focal aortic valve calcification. Right ventricular systolic pressure estimated to be 47 mmHg. Unable to assess diastolic dysfunction. ICD or pacer leads identified within the right atrium ICD or pacer leads identified within the right ventricle. Ordering Physician: Kian Ramon Referring Physician: Norberto Shearer Performed By: Kelly Mcnulty RDCS, RVT
[2019-08-26] MEDS: Magnesium Sulfate 4gm/100mL 4 GM/100 ML IV.SOLN. IV (12:25)
[2019-08-26] MEDS: Rivaroxaban 20 MG Tablet PO (12:25)
[2019-08-26] MEDS: dilTIAZem CD 120 MG Capsule PO (12:25)
[2019-08-26] MEDS: Allopurinol 300 MG Tablet PO (12:25)
[2019-08-26] MEDS: Sertraline 50 MG Tablet 150 MG PO (12:26)
[2019-08-26] MEDS: Pantoprazole Sodium 20 MG Tablet PO (12:26)
[2019-08-26] MEDS: Furosemide 40 MG Tablet PO (12:26)
--- NOTE | 2019-08-26 12:48 | PHA.DC.MC ---
Pharmacy Service has performed discharge medication reconciliation and counseling for this patient. The patient's discharge medication list was reviewed for discrepancies and discrepancies were resolved. The patient was counseled on the following discharge medications and changes in medications for homegoing were reviewed. 1. FUROSEMIDE: 40MG PO DAILY The Reason for Use, instructions for use, and potential side effects were reviewed for all new medications. The patient's questions regarding all of their medications were answered. The patient was able to verbally demonstrate an understanding of their discharge medications. Home Medications Allopurinol [Zyloprim] 300 mg PO DAILY 07/28/13 Aspirin E.C. [Ecotrin] 81 mg PO DAILY@0800 07/28/13 Diltiazem HCl [Diltiazem 24Hr ER] 120 mg PO DAILY 07/28/13 Omeprazole [Prilosec] 20 mg PO DAILY 07/28/13 Sertraline HCl [Zoloft] 150 mg PO DAILY 06/24/16 Albuterol Inhaler [Ventolin Hfa] 1 puff INHALATION Q4H PRN PRN 08/04/18 Denosumab [Prolia] 60 mg SQ UD 04/18/19 rivaroxaban 20 mg tablet 20 mg PO QDAY #90 tab 05/31/19 losartan 50 mg tablet 50 mg PO DAILY #90 tab 06/21/19 Cholecalciferol (Vitamin D3) [D3-2000] 2,000 unit PO DAILY 08/25/19 Nortriptyline HCl [Pamelor] 25 mg PO QHS 08/25/19 Pravastatin Sodium 40 mg PO DAILY 08/25/19 Furosemide [Lasix] 40 mg PO DAILY #30 tab 08/26/19
--- NOTE | 2019-08-26 15:25 | PCM.DC.SUM ---
<Kian Ramon - Last Filed: 08/26/19 15:25> Discharge Date and Diagnosis Date of Admission: 08/25/19 Date of Discharge: 08/26/19 - Primary Discharge Diagnosis Active and Suspected Problems (Last Reviewed 05/05/19 @ 09:52 by Shahid Alejandro MD) Dyspnea, 2/2 pulmonary HTN Chronic afib, sick sinus syndrome, s/p ventricular pacemaker Hypokalemia, hypomagnesemia Asthma, COPD HTN HLD GERD VTE, chronic - Secondary Discharge Diagnosis Chronic Problems (Last Reviewed 05/05/19 @ 09:52 by Shahid Alejandro MD) Chronic atrial fibrillation (Chronic) Presence of permanent cardiac pacemaker (Chronic 02/25/11) Essential (primary) hypertension (Chronic) Secondary pulmonary arterial hypertension (Chronic) Hyperlipidemia (Chronic) Atherosclerotic heart disease of [place] coronary artery without angina pectoris (Chronic) Paroxysmal atrial tachycardia (Chronic) Second degree atrioventricular block (Chronic) Hospital Course and Treatment Imaging Results: 08/26/19 12:11 Echo Complete [ECHO] Routine Procedures: 2-D Echocardiogram, Stress test Summary of Care Provided: Hospital Course: The patient is a 68 year old F with pmhx of SSS, Chronic afib, pacemaker in place, pulmonary HTN, otherwise as above, who presented to the ER with c/o dyspnea. She reported that this has been going on for about a month. She has also had some increased LE edema. She denies orthopnea and PND. She had no hx of CAD. In the ER CXR showed mild vascular congestion, troponin, and EKG were unremarkable. She was admitted to the PCU with concerns for angina equivalent. She had no chest pain. No acute events on tele - this showed underlying chronic arrhythmias. She had low potassium and low mag - these were repleted and will need rechecked as an outpatient. Trop was negative x 3. BNP was mildly elevated at 363. She underwent stress testing which was negative for ischemia, however did show EF of 38%. A follow up echo was done - results are pending at this time. With the combination of LE edema, SOB, CXR with vascular congestion and elevated BNP she was felt to had some degree of fluid overload, possibly related to her pulmonary HTN or chronic underlying CHF. We advised her to follow up closely with her orientation & mobility specialist Dr Alejandro, ideally in 1-2 weeks. She will also need to follow up with her PCP in 1-2 weeks, and will need her BMP and Mag rechecked at follow up. She was discharged home in stable condition. She was prescribed lasix and potassium at discharge. This patient was seen by Kian Ramon PA-C under the supervision of Doctor Олег. [] - Physical Exam Vitals/I&O's: Vital Signs Temp Pulse Resp BP Pulse Ox 98.1 F 78 16 127/79 H 95 08/26/19 11:53 08/26/19 11:53 08/26/19 11:53 08/26/19 11:53 08/26/19 11:53 Oxygen Delivery Method Room Air Weight: 232 lb Body Mass Index (BMI) 41.1 Intake and Output for Last 24 Hours 08/24/19 08/25/19 08/26/19 23:59 23:59 23:59 Intake Total 600 / 600 150 / 150 Balance 600 / 600 150 / 150 General: Alert, Oriented x3, Cooperative HEENT: Atraumatic, PERRLA, EOMI, Normocephalic Neck: Supple, No JVD, Negative Carotid Bruits Lungs: Rales - fine rales at bases Cardiovascular: Regular rate, No murmurs Abdomen: Bowel Sounds Present, Soft, Non Tender Extremities: No edema, Capillary Refill Less than 3 Seconds Skin: No rashes, No breakdown Musculoskeletal: No Tenderness to Palpation of Joints or Extremities Neurological: Cranial nerves II-XII grossly intact Psych/Mental Status: Normal Affect, Appropriate, Alert and oriented to time, place, person, mood and affect Laboratory Results 08/25/19 15:42: Troponin I < 0.015 08/25/19 18:58: Troponin I < 0.015 08/26/19 05:00: Sodium 142, Potassium 4.0, Chloride 108 H, Carbon Dioxide 26.0, Anion Gap 8, BUN 21 H, Creatinine 1.38 H, Estim Creat Clear Calc 32.72, Est GFR (MDRD) Af Amer 49 L, Est GFR (MDRD) Non-Af 40 L, BUN/Creatinine Ratio 15.2, Glucose 97, Calcium 8.8 Current Medications Acetaminophen (Tylenol) 650 mg PO Q6H PRN PRN PRN Reason: Pain Score 1-3/Temp > 100.7 F Albuterol Sulfate (Ventolin Aerosols) 2.5 mg INHALATION Q2H PRN PRN PRN Reason: sob/wheezing Allopurinol (Zyloprim) 300 mg PO DAILYCM [facility] Last Admin: 08/26/19 12:25 Dose: 300 mg Documented by: Aspirin (Aspirin, Baby) 81 mg PO DAILY@0800 [facility] Last Admin: 08/26/19 05:56 Dose: 81 mg Documented by: Cholecalciferol (Vitamin D) 2,000 unit PO DAILY [facility] Last Admin: 08/26/19 12:26 Dose: 2,000 unit Documented by: Dextrose (D50w Syringe) 0 gm IV X1 PRN; Protocol PRN Reason: Hypoglycemia Diltiazem HCl (Cardizem Cd) 120 mg PO DAILY [facility] Last Admin: 08/26/19 12:25 Dose: 120 mg Documented by: Furosemide (Lasix) 40 mg PO DAILY [facility] Last Admin: 08/26/19 12:26 Dose: 40 mg Documented by: Glucagon () 1 mg IM .X1 PRN PRN Reason: Hypoglycemia Losartan Potassium (Cozaar) 50 mg PO DAILY [facility] Last Admin: 08/26/19 05:56 Dose: 50 mg Documented by: Nitroglycerin (Nitrostat) 0.4 mg SUBLINGUAL Q5M PRN PRN Reason: CARDIAC/CHEST PAIN Nortriptyline HCl (Pamelor) 25 mg PO QHS [facility] Last Admin: 08/25/19 21:53 Dose: 25 mg Documented by: Ondansetron HCl (Zofran) 4 mg IV Q8H PRN PRN PRN Reason: NAUSEA/VOMITING Pantoprazole Sodium (Protonix) 20 mg PO DAILY [facility] Last Admin: 08/26/19 12:26 Dose: 20 mg Documented by: Pravastatin Sodium (Pravachol) 40 mg PO DAILY@2200 [facility] Last Admin: 08/25/19 21:53 Dose: 40 mg Documented by: Rivaroxaban (Xarelto) 20 mg PO DAILYCM [facility] Last Admin: 08/26/19 12:25 Dose: 20 mg Documented by: Senna/Docusate Sodium (Senokot-S, Za-Colace) 2 tablet PO BID PRN PRN PRN Reason: Constipation Sertraline HCl (Zoloft) 150 mg PO DAILY [facility] Last Admin: 08/26/19 12:26 Dose: 150 mg Documented by: Sodium Chloride () 10 - 40 ml IV UD PRN PRN Reason: SALINE FLUSH Discharge Diet: Low fat/ Low Cholesterol, 2000 mg Sodium Diet Discharge Activity: Return to Normal Activity Home Medications: Medications to take at Discharge Allopurinol [Zyloprim] 300 mg PO DAILY 07/28/13 Aspirin E.C. [Ecotrin] 81 mg PO DAILY@0800 07/28/13 Diltiazem HCl [Diltiazem 24Hr ER] 120 mg PO DAILY 07/28/13 Omeprazole [Prilosec] 20 mg PO DAILY 07/28/13 Sertraline HCl [Zoloft] 150 mg PO DAILY 06/24/16 Albuterol Inhaler [Ventolin Hfa] 1 puff INHALATION Q4H PRN PRN 08/04/18 Denosumab [Prolia] 60 mg SQ UD 04/18/19 rivaroxaban 20 mg tablet 20 mg PO QDAY #90 tab 05/31/19 losartan 50 mg tablet 50 mg PO DAILY #90 tab 06/21/19 Cholecalciferol (Vitamin D3) [D3-2000] 2,000 unit PO DAILY 08/25/19 Nortriptyline HCl [Pamelor] 25 mg PO QHS 08/25/19 Pravastatin Sodium 40 mg PO DAILY 08/25/19 Furosemide [Lasix] 40 mg PO DAILY #30 tab 08/26/19 Potassium Chloride [K-Dur] 20 meq PO DAILY #30 tab 08/26/19 Following Prescrptions Were Given to Patient: Potassium Chloride [K-Dur] 20 meq PO DAILY #30 tab Transmission Status: Received by [facility] Furosemide [Lasix] 40 mg PO DAILY #30 tab Transmission Status: Received by [facility] Primary Care Physician: Norberto Shearer MD [Primary Care Provider] - Please follow up with your Primary Care Physician in: 1-2 weeks Please Follow Up With: Shahid Alejandro MD - as soon as possible When: as directed Disposition: Home Minutes spent on discharge:: 35 Patient Condition:: Stable Medical Necessity - Tobacco Use Smoking Status: Never smoker Tobacco Use: Non-smoker Meaningful Use Info Meaningful Use Diagnoses (Choose all that apply): None applicable <Sherron Denney - Last Filed: 08/27/19 11:04> Discharge Date and Diagnosis - Primary Discharge Diagnosis Active and Suspected Problems (Last Reviewed 05/05/19 @ 09:52 by Shahid Alejandro MD) Anginal equivalent (Acute) - Secondary Discharge Diagnosis Chronic Problems (Last Reviewed 05/05/19 @ 09:52 by Shahid Alejandro MD) Chronic atrial fibrillation (Chronic) Presence of permanent cardiac pacemaker (Chronic 02/25/11) Essential (primary) hypertension (Chronic) Secondary pulmonary arterial hypertension (Chronic) Hyperlipidemia (Chronic) Atherosclerotic heart disease of [place] coronary artery without angina pectoris (Chronic) Paroxysmal atrial tachycardia (Chronic) Second degree atrioventricular block (Chronic) Hospital Course and Treatment Imaging Results: 08/26/19 12:11 Echo Complete [ECHO] Routine Clinical Impression(s) from Imaging Studies Chest X-Ray 08/25/19 12:35 IMPRESSION: Findings suggest a mild degree of vascular congestion with a scarring at the lung bases and blunting of both costophrenic angles. Electronically Signed: López Lopezeryn, at 14:11 EDT , Service support , Summary of Care Provided: Hospitalist note: Discharge summary above reviewed and I concur with the above discharge and treatment plan. Patient was admitted for exertional shortness of breath for evaluation and she was found to have probable mild acute systolic and probably diastolic CHF. Her EKG showed no acute ischemic changes. Her troponin was negative x3. Her BNP was slightly elevated at 363. Chest x-ray revealed mild degree of pulmonary vascular congestion consistent with mild CHF. Patient underwent nuclear stress test that revealed no evidence of stress-induced myocardial ischemia and gated ejection fraction was 38%. 2D echocardiogram done and revealed mild segmental systolic dysfunction, mildly dilated left ventricle, ejection fraction 45%, RVSP of 47. Patient symptoms were only exertional and her vital signs remained stable throughout admission. Her pulse ox remained normal at 95% on room air. Her symptoms attributed to mild acute probably combined diastolic and systolic CHF. She was started on Lasix. Patient discharged home in a stable medical condition, discharged on her previous home medications without any changes, continued on losartan, statins and started on Lasix 40 mg p.o. daily, recommended follow-up with PCP in 1 to 2 weeks, follow-up with cardiology according to Dr. Alejandro. - Physical Exam General: Alert, Oriented x3, Cooperative, No apparent distress. HEENT: Atraumatic, PERRLA, EOMI. Neck: Supple, No JVD, Negative Carotid Bruits, Trachea Midline, Thyroid Normal. Lungs: Diminished breath sounds at the bases, faint crackles, otherwise clear. No rhonchi or wheezes.. Cardiovascular: Regular rate, Regular Rhythm, Normal S1, Normal S2, PMI Normal. Abdomen: Bowel Sounds Present, Soft, Non Tender, Non-Distended, No Hepato-splenomegaly. Extremities: No clubbing, No cyanosis, No edema Skin: No rashes, No breakdown Neurological: Cranial nerves are intact, neuro grossly intact Vital Signs are stable. This note was generated with [employer] dictation software. It may contain incorrect words, spelling, and punctuation that were not noted in checking the note before signing. - Physical Exam Vitals/I&O's: Vital Signs Temp Pulse Resp BP Pulse Ox 98.1 F 78 16 127/79 H 95 08/26/19 11:53 08/26/19 11:53 08/26/19 11:53 08/26/19 11:53 08/26/19 11:53 Oxygen Delivery Method Room Air Weight: 232 lb Body Mass Index (BMI) 41.1 Intake and Output for Last 24 Hours 08/24/19 08/25/19 08/26/19 23:59 23:59 23:59 Intake Total 600 / 600 150 / 150 Balance 600 / 600 150 / 150 Laboratory Results 08/25/19 15:42: Troponin I < 0.015 08/25/19 18:58: Troponin I < 0.015 08/26/19 05:00: Sodium 142, Potassium 4.0, Chloride 108 H, Carbon Dioxide 26.0, Anion Gap 8, BUN 21 H, Creatinine 1.38 H, Estim Creat Clear Calc 32.72, Est GFR (MDRD) Af Amer 49 L, Est GFR (MDRD) Non-Af 40 L, BUN/Creatinine Ratio 15.2, Glucose 97, Calcium 8.8 Current Medications Acetaminophen (Tylenol) 650 mg PO Q6H PRN PRN PRN Reason: Pain Score 1-3/Temp > 100.7 F Albuterol Sulfate (Ventolin Aerosols) 2.5 mg INHALATION Q2H PRN PRN PRN Reason: sob/wheezing Allopurinol (Zyloprim) 300 mg PO DAILYCM [facility] Last Admin: 08/26/19 12:25 Dose: 300 mg Documented by: Aspirin (Aspirin, Baby) 81 mg PO DAILY@0800 [facility] Last Admin: 08/26/19 05:56 Dose: 81 mg Documented by: Cholecalciferol (Vitamin D) 2,000 unit PO DAILY [facility] Last Admin: 08/26/19 12:26 Dose: 2,000 unit Documented by: Dextrose (D50w Syringe) 0 gm IV X1 PRN; Protocol PRN Reason: Hypoglycemia Diltiazem HCl (Cardizem Cd) 120 mg PO DAILY [facility] Last Admin: 08/26/19 12:25 Dose: 120 mg Documented by: Furosemide (Lasix) 40 mg PO DAILY [facility] Last Admin: 08/26/19 12:26 Dose: 40 mg Documented by: Glucagon () 1 mg IM .X1 PRN PRN Reason: Hypoglycemia Losartan Potassium (Cozaar) 50 mg PO DAILY [facility] Last Admin: 08/26/19 05:56 Dose: 50 mg Documented by: Nitroglycerin (Nitrostat) 0.4 mg SUBLINGUAL Q5M PRN PRN Reason: CARDIAC/CHEST PAIN Nortriptyline HCl (Pamelor) 25 mg PO QHS [facility] Last Admin: 08/25/19 21:53 Dose: 25 mg Documented by: Ondansetron HCl (Zofran) 4 mg IV Q8H PRN PRN PRN Reason: NAUSEA/VOMITING Pantoprazole Sodium (Protonix) 20 mg PO DAILY [facility] Last Admin: 08/26/19 12:26 Dose: 20 mg Documented by: Pravastatin Sodium (Pravachol) 40 mg PO DAILY@2200 [facility] Last Admin: 08/25/19 21:53 Dose: 40 mg Documented by: [facility] Last Admin: 08/26/19 12:25 Dose: 20 mg Documented by: Senna/Docusate Sodium (Senokot-S, Za-Colace) 2 tablet PO BID PRN PRN PRN Reason: Constipation Sertraline HCl (Zoloft) 150 mg PO DAILY [facility] Last Admin: 08/26/19 12:26 Dose: 150 mg Documented by: Sodium Chloride () 10 - 40 ml IV UD PRN PRN Reason: SALINE FLUSH Disposition: Home Minutes spent on discharge:: 28 Meaningful Use Info Meaningful Use Diagnoses (Choose all that apply): None applicable Code Visit OBSV E&M: 81314 Observation care discharge
[2019-08-26 17:50] VITALS: BP 128/86; PULSE 86; RESP 16; TEMP 36.9; O2SAT 95
== END 2019-08-26 19:29 | disposition home or self-care (01) ==
LOC: ED 12:44 → PCU 14:12
PROVIDERS: Emergency Provider Emergency Medicine; Family Provider Family Medicine; PCP Family Medicine; Visit Provider Hospitalist
DX: I27.21 Secondary pulmonary arterial hypertension (principal); I48.20 Chronic atrial fibrillation, unspecified; J44.9 Chronic obstructive pulmonary disease, unspecified; K21.9 Gastro-esophageal reflux disease without esophagitis; E78.5 Hyperlipidemia, unspecified; I10 Essential (primary) hypertension; E87.6 Hypokalemia; I25.10 Atherosclerotic heart disease of native coronary artery without angina pectoris; E83.42 Hypomagnesemia; M19.90 Unspecified osteoarthritis, unspecified site; R94.31 Abnormal electrocardiogram [ECG] [EKG]; I08.3 Combined rheumatic disorders of mitral, aortic and tricuspid valves; K58.9 Irritable bowel syndrome, unspecified; E66.9 Obesity, unspecified; Z68.41 Body mass index [BMI] 40.0-44.9, adult; Z86.718 Personal history of other venous thrombosis and embolism; Z71.3 Dietary counseling and surveillance; Z79.01 Long term (current) use of anticoagulants; Z95.0 Presence of cardiac pacemaker; Z79.899 Other long term (current) drug therapy; Z79.82 Long term (current) use of aspirin
CPT/HCPCS: 36415; 71046; 78452; 80048; 83735; 83880; 84484; 85025; 85379; 93005; 93017; 93306; 99218; 99285; A9500; Q9957; A4216; C8929; G0378; J2785

== ENCOUNTER → 2019-09-08 | Outpatient (CLI) | payer MEDICARE, OTHER, SELFPAY ==
[2019-08-25 14:12] VITALS: BMI 41.1
[2019-09-08 14:36] LABS: Anion Gap 6 (5-15); BUN 21 mg/dL (7-18); BUN/Creat Ratio 15.7 RATIO (10-20); Calcium,Total 8.4 mg/dL (8.5-10.1); Chloride 104 mmol/L (98-107); Creatinine, Serum 1.34 mg/dL (0.55-1.02); EST Glomerular Filtration Rate 42 mL/min (>60); Est Glom Filt Rate - Afr Amer 51 mL/min (>60); Glucose 110 mg/dL (74-106); Potassium 3.5 mmol/L (3.5-5.1); Sodium Level 138 mmol/L (136-145)
== END | disposition home or self-care (01) ==
LOC: MFPLAB 12:17
PROVIDERS: Family Provider Family Medicine; PCP Family Medicine; Referring Provider Family Medicine; Visit Provider Family Medicine
DX: E87.6 Hypokalemia (principal)
CPT/HCPCS: 36415; 80048

== ENCOUNTER 2019-09-26 10:40 | Day surgery (SDC) | payer MEDICARE, OTHER, SELFPAY ==
[2019-09-21 12:03] VITALS: BMI 38.7
[2019-09-26 10:45] VITALS: BMI 38.7
--- NOTE | 2019-09-26 12:40 | CARDIOVERS_ITS ---
Cardioversion Cardioversion: DC cardioversion. 68-year-old lady with a history of paroxysmal atrial fibrillation status post permanent pacemaker implantation. The patient was seen by Dr. Simental of the critical care division. Informed consent was obtained. Anterior-posterior pads were applied. 5 mg of intravenous etomidate was then injected. 200 J of synchronized DC cardioversion energy were applied with prompt reversal to sinus rhythm. AV sequential pacing was also noted. Patient tolerated the procedure well we will continue with c urrent medications. The pacemaker will be interrogated. Conclusion: Successful DC cardioversion from atrial fibrillation to sinus rhythm.
--- NOTE | 2019-09-26 12:51 | PCM.OP.PRO ---
Problem List (1) Acute combined systolic (congestive) and diastolic (congestive) heart failure Status: Chronic (2) Atherosclerotic heart disease of [place] coronary artery without angina pectoris Status: Chronic (3) Chronic atrial fibrillation Status: Chronic (4) Essential (primary) hypertension Status: Chronic (5) Hyperlipidemia Status: Chronic Qualifiers: (6) Non-rheumatic tricuspid valve insufficiency Status: Chronic (7) Presence of permanent cardiac pacemaker Status: Chronic (8) Secondary pulmonary arterial hypertension Status: Chronic Procedure Report Date of Procedure: 09/26/19 - Conscious sedation CONSCIOUS SEDATION REPORT BRIEF HISTORY OF PRESENT ILLNESS: The patient is a 68-year-old female who presented to [facility] for an elective outpatient cardioversion due to underlying atrial fibrillation. The patient reports no PO intake since midnight. The patient does not have a history of obstructive sleep apnea. The patient reports no history of smoking and COPD. The patient denies any recent constitutional symptoms such as fevers, chills, nausea or vomiting. The patient denies previous anesthetic complications. Patient's last known ejection fraction was 45% and patient is anticoagulated with Xarelto therapy. PHYSICAL EXAMINATION: VITAL SIGNS: Reviewed and were acceptable. GENERAL: The patient is a female, in no apparent distress, speaking in full sentences. HEENT: Normocephalic, atraumatic. Mucous membranes are moist and pink. Good mouth opening noted. Trachea is midline. Good neck mobility. MP IV CHEST: S1, S2 irregularly irregular. No murmurs, rubs or gallops were noted. LUNGS: Clear to auscultation bilaterally without appreciable wheezes, rales or rhonchi. ABDOMEN: Soft, nontender, nondistended. Positive bowel sounds. EXTREMITIES: There is no clubbing, cyanosis or edema. ASA Class: II DESCRIPTION OF PROCEDURE: After confirmation of informed consent, the patient's anesthesia plan was reviewed in detail. Etomidate was chosen. Risks and benefits were reviewed and the patient agreed to proceed. At 12:33 PM, the patient was given 5 mg of etomidate. The patient achieved an appropriate level of sedation and received 1 attempt synchronized cardioversion, at [address] Alejandro at the bedside. This was successful in achieving normal sinus rhythm. The patient was monitored until 12:40 PM, at which time the patient reached their baseline mental status and function. The patient tolerated the procedure well. COMPLICATIONS: None ESTIMATED BLOOD LOSS: None RECOMMENDATIONS: Okay to recover in usual fashion. Code Visit 9xxxx: Other Procedure See Report - [id number] -7 minutes
== END 2019-09-26 13:40 | disposition home or self-care (01) ==
LOC: CLSP 10:41
PROVIDERS: Family Provider Family Medicine; PCP Family Medicine; Referring Provider Internal Medicine Cardiovascular Disease; Visit Provider Internal Medicine Cardiovascular Disease
DX: I48.20 Chronic atrial fibrillation, unspecified (principal); I25.10 Atherosclerotic heart disease of native coronary artery without angina pectoris; E78.00 Pure hypercholesterolemia, unspecified; I11.0 Hypertensive heart disease with heart failure; I50.41 Acute combined systolic (congestive) and diastolic (congestive) heart failure; I27.20 Pulmonary hypertension, unspecified; J44.9 Chronic obstructive pulmonary disease, unspecified; K21.9 Gastro-esophageal reflux disease without esophagitis; E66.9 Obesity, unspecified; M19.90 Unspecified osteoarthritis, unspecified site; Z95.0 Presence of cardiac pacemaker; Z86.718 Personal history of other venous thrombosis and embolism; Z68.38 Body mass index [BMI] 38.0-38.9, adult; Z79.02 Long term (current) use of antithrombotics/antiplatelets; Z79.82 Long term (current) use of aspirin; Z79.51 Long term (current) use of inhaled steroids; Z79.899 Other long term (current) drug therapy
CPT/HCPCS: 92960; 93005; J7040

== ENCOUNTER → 2019-11-07 08:38 | Outpatient (CLI) | payer MEDICARE, OTHER, SELFPAY ==
[2019-05-05 09:06] VITALS: BMI 40.8
[2019-10-03 10:36] VITALS: BMI 38.7
--- NOTE | 2019-11-07 08:39 | BI_ITS ---
MAMMOGRAPHY - BILATERAL SCREENING REASON FOR EXAM: Female, 69 years old. Routine annual screening examination. PERTINENT HISTORY: Non-contributory. Remote left excisional breast biopsy. TECHNIQUE: Digital bilateral breast kathie (3D mammographic acquisition) in the CC and MLO projections. 2-D mediolateral oblique (MLO) and craniocaudad (CC) views of both breasts were obtained. CAD: Full Field Digital Mammography with Computer Added Detection was performed. COMPARISON: Comparison is made with prior stated that he generally 2018 and August 27, 2017. FINDINGS: Breast Composition: There are scattered areas of fibroglandular density. There are no dominant masses or suspicious calcifications. Stable 8 mm x 4 mm well-defined nodule in the retroareolar region of the right breast. This is unchanged. No other significant abnormalities are identified. There has been no significant change since the prior study. BI/SCREEN MAMM (CAD) W/KATHIE BILAT IMPRESSION: Stable bilateral screening mammogram. Yearly follow-up mammogram recommended. (A) ASSESSMENT CATEGORY: BIRADS Category 2: Benign. A letter regarding these results will be sent to the patient by the facility within 30 days. Approximately 10% of breast cancers are not detected by mammography. A normal mammogram should not delay biopsy of a clinically suspicious abnormality. [id number] Electronically Signed: López Kenney, at 10:09 EST , Service support ,
[2019-11-11 16:53] LABS: HPV APTIMA, High Risk Negative (Negative)
== END ==
PROVIDERS: Family Provider Family Medicine; PCP Family Medicine; Referring Provider Nurse Practitioner Women's Health; Visit Provider Nurse Practitioner Women's Health
DX: Z12.31 Encounter for screening mammogram for malignant neoplasm of breast (principal); C53.9 Malignant neoplasm of cervix uteri, unspecified; R87.610 Atypical squamous cells of undetermined significance on cytologic smear of cervix (ASC-US); Z12.4 Encounter for screening for malignant neoplasm of cervix
CPT/HCPCS: 77063; 77067; 87624; 88175; G0145

== ENCOUNTER → 2019-12-21 10:26 | Outpatient (CLI) | payer MEDICARE, OTHER, SELFPAY ==
[2019-12-21 09:29] VITALS: BMI 39.3
[2019-12-21 11:28] LABS: Absolute Lymphocyte Count 1.38 X10^3/uL (0.83-4.51); Basophil# 0.04 X10^3/uL; Basophil% 0.4 % (0-1); Eosinophil# 0.15 X10^3/uL; Eosinophils% 1.6 % (0-5); Hematocrit 32.4 % (37-47); Hemoglobin 9.9 g/dL (12.0-15.0); Lymphocyte # 1.38 X10^3/ul (4.0); Lymphocyte % 15.1 % (19-41); Mean Corp Hgb Conc 30.6 g/dL (32-36); Mean Corpuscular Hgb 26.3 pg (27.0-32.0); Mean Corpuscular Volume 85.9 fL (81-99); Mean Platelet Vol. 10.6 fl (6.2-12.0); Monocyte# 0.51 X10^3/uL; Monocyte% 5.6 % (0-10); NRBC Flagged by Analyzer 0 % (0-5); Neutrophil # 6.99 X10^3/uL (2.7-7.7); Neutrophil % 76.9 % (47-70); Platelet Count 346 K/mm3 (150-450); RBC Distribution Width SD 56.5 fl (35.1-43.9); Red Blood Count 3.77 M/mm3 (4.2-5.4); White Blood Count 9.1 K/mm3 (4.4-11.0)
[2019-12-21 11:43] LABS: Anion Gap 6 (5-15); BUN 17 mg/dL (7-18); BUN/Creat Ratio 11.4 RATIO (10-20); Calcium,Total 7.9 mg/dL (8.5-10.1); Chloride 108 mmol/L (98-107); Creatinine, Serum 1.49 mg/dL (0.55-1.02); EST Glomerular Filtration Rate 37 mL/min (>60); Est Glom Filt Rate - Afr Amer 45 mL/min (>60); Glucose 103 mg/dL (74-106); Potassium 3.4 mmol/L (3.5-5.1); Sodium Level 141 mmol/L (136-145)
== END ==
PROVIDERS: Internal Medicine Cardiovascular Disease; PCP Family Medicine; Referring Provider Physician Assistant Medical; Visit Provider Physician Assistant Medical
DX: I42.9 Cardiomyopathy, unspecified (principal); I25.10 Atherosclerotic heart disease of native coronary artery without angina pectoris; I10 Essential (primary) hypertension; I48.20 Chronic atrial fibrillation, unspecified; E78.5 Hyperlipidemia, unspecified; R06.09 Other forms of dyspnea; Z95.0 Presence of cardiac pacemaker
CPT/HCPCS: 36415; 80048; 83880; 85025

== ENCOUNTER → 2020-01-06 10:27 | Outpatient (CLI) | payer MEDICARE, OTHER, SELFPAY ==
[2019-12-21 09:29] VITALS: BMI 39.3
--- NOTE | 2020-01-06 10:27 | ECHOCS_ITS ---
Version 2 Reason For Study: AFib/Flutter Procedure This was a 2D Doppler, Color Flow transthoracic echocardiogram. The study was technically difficult. Contrast injection was performed. Exam performed in department. Left Ventricle Normal LV size. The estimated ejection fraction is 35 %. Stage 2 diastolic dysfunction. There is moderate global hypokinesis of the left ventricle. Right Ventricle Normal RV size. ICD or pacer leads identified within the right ventricle. Normal systolic function. Atria The left atrium is moderately enlarged. Normal right atrium. Mitral Valve Moderate (2+) eccentric mitral valve insufficiency. Tricuspid Valve Normal tricuspid valve. Mild to moderate (1-2+) tricuspid valve insufficiency. Pulmonary artery systolic pressure is 40 mmHg. Aortic Valve Trisinus/trileaflet aortic valve. Mild (1+) aortic valve insufficiency. Pulmonic Valve The pulmonic valve is not well visualized. Great Vessels Normal aortic root. The pulmonary artery is normal size. Normal inferior vena cava. Pericardium/Pleural No pericardial effusion. Medication 22 gauge I.V. with prn adaptor inserted into left arm. Diluted definity 3ml given slow IV push to enhance endocardial definition. MMode/2D Measurements & Calculations LVIDd: 5.6 cm IVSd: 1.2 cm Ao root diam: 2.5 cm LVIDs: 4.2 cm LVPWd: 1.4 cm LA dimension: 4.3 cm RVDd: 4.0 cm FS: 24.2 % LAV(MOD-bp): 131.9 ml LA A4 area: 32.3 cm2 RA A4 area: 16.0 cm2 LAV(MOD-bp) Indexed: 64.4 ml/m2 LAV(MOD-sp2): 131.5 ml LAV(MOD-sp4): 117.9 ml Time Measurements MV dec time: 0.25 sec Doppler Measurements & Calculations MV E max jelena: 104.0 cm/sec MV V2 max: 125.0 cm/sec MV P1/2t max jelena: 125.0 cm/sec MV A max jelena: 70.8 cm/sec MV max P.2 mmHg MV P1/2t: 85.4 msec MV E/A: 1.5 MV V2 mean: 69.3 cm/sec MV dec slope: 428.5 cm/sec2 MV mean P.3 mmHg MV V2 VTI: 40.7 cm MVA(P1/2t): 2.6 cm2 Ao V2 max: 127.6 cm/sec AI max jelena: 313.8 cm/sec LV V1 max: 98.3 cm/sec Ao max P.5 mmHg AI max P.4 mmHg LV V1 max P.9 mmHg AI dec slope: 142.2 cm/sec2 AI P1/2t: 646.4 msec MR max jelena: 466.7 cm/sec PA V2 max: 79.4 cm/sec TR max jelena: 295.9 cm/sec MR max P.1 mmHg TR max P.0 mmHg MR mean jelena: 323.6 cm/sec MR mean P.6 mmHg MR VTI: 156.3 cm Interpretation Summary Normal LV size. The estimated ejection fraction is 35 %. Stage 2 diastolic dysfunction. Mild to moderate (1-2+) tricuspid valve insufficiency. Mild (1+) aortic valve insufficiency. Pulmonary artery systolic pressure is 40 mmHg. Compared to previous study, the left ventricular systolic function has worsened.. Ordering Physician: Darleen Lara Referring Physician: Norberto Shearer Performed By: Juanjose Esquivel RCS
== END ==
PROVIDERS: PCP Family Medicine; Referring Provider Physician Assistant Medical; Visit Provider Physician Assistant Medical
DX: I50.41 Acute combined systolic (congestive) and diastolic (congestive) heart failure (principal); I25.10 Atherosclerotic heart disease of native coronary artery without angina pectoris; I42.9 Cardiomyopathy, unspecified; E78.5 Hyperlipidemia, unspecified; I12.9 Hypertensive chronic kidney disease with stage 1 through stage 4 chronic kidney disease, or unspecified chronic kidney disease; I48.20 Chronic atrial fibrillation, unspecified; R06.09 Other forms of dyspnea; Z95.0 Presence of cardiac pacemaker
CPT/HCPCS: 93306; Q9957; A4216; C8929

== ENCOUNTER → 2020-03-20 10:22 | Outpatient (CLI) | payer MEDICARE, OTHER, SELFPAY ==
[2020-03-09 10:20] VITALS: BMI 40.4
[2020-03-20 12:42] LABS: Anion Gap 10 (5-15); BUN 31 mg/dL (7-18); Calcium,Total 9.8 mg/dL (8.5-10.1); Chloride 101 mmol/L (98-107); Cholesterol 187 mg/dL (200); Creatinine, Serum 2.07 mg/dL (0.55-1.02); EST Glomerular Filtration Rate 25 mL/min (>60); Est Glom Filt Rate - Afr Amer 31 mL/min (>60); Glucose 120 mg/dL (74-106); High Density Lipoprotein 37 mg/dL; Potassium 3.6 mmol/L (3.5-5.1); Sodium Level 138 mmol/L (136-145); Triglycerides 193 mg/dL; Very Low Density Lipoprotein 39 mg/dL (5-40)
== END ==
PROVIDERS: PCP Family Medicine; Referring Provider Family Medicine; Visit Provider Family Medicine
DX: I10 Essential (primary) hypertension (principal)
CPT/HCPCS: 36415; 80048; 80061

== ENCOUNTER → 2020-05-14 10:04 | Outpatient (CLI) | payer MEDICARE, OTHER, SELFPAY ==
[2020-05-10 08:52] VITALS: BMI 40.5
[2020-05-14 12:34] LABS: Anion Gap 7 (5-15); BUN 27 mg/dL (7-18); BUN/Creat Ratio 15.8 RATIO (10-20); Calcium,Total 9.7 mg/dL (8.5-10.1); Chloride 104 mmol/L (98-107); Creatinine, Serum 1.71 mg/dL (0.55-1.02); EST Glomerular Filtration Rate 32 mL/min (>60); Est Glom Filt Rate - Afr Amer 38 mL/min (>60); Glucose 98 mg/dL (74-106); Potassium 3.3 mmol/L (3.5-5.1); Sodium Level 140 mmol/L (136-145)
== END ==
PROVIDERS: PCP Family Medicine; Referring Provider Internal Medicine Cardiovascular Disease; Visit Provider Internal Medicine Cardiovascular Disease
DX: I47.2 Ventricular tachycardia (principal); I44.1 Atrioventricular block, second degree; I48.20 Chronic atrial fibrillation, unspecified; I47.1 Supraventricular tachycardia; I25.10 Atherosclerotic heart disease of native coronary artery without angina pectoris; I50.41 Acute combined systolic (congestive) and diastolic (congestive) heart failure; Z95.0 Presence of cardiac pacemaker
CPT/HCPCS: 36415; 80048

== ENCOUNTER 2020-08-06 14:21 | Inpatient (IN) | payer MEDICARE, OTHER, SELFPAY ==
[2020-05-10 08:52] VITALS: BMI 40.5
[2020-08-06 14:30] VITALS: BP 107/60; PULSE 63; PULSE 64; RESP 16; TEMP 36.2; O2SAT 98; BMI 39.0; BMI 39.1
[2020-08-06] MEDS: APIXABAN 5 MG TABLET PO (17:53)
[2020-08-06] MEDS: Carvedilol 6.25 MG Tablet PO (17:53)
[2020-08-06] MEDS: Hydrocortisone 2.5% Crm 1 APPLIC TOPICAL (17:54)
[2020-08-06] MEDS: Furosemide 20 MG Tablet PO (17:54)
[2020-08-06] MEDS: Magnesium Chloride 64 MG Delay Rel.Tablet 128 MG PO (17:55)
--- NOTE | 2020-08-06 20:28 | HP.PCM_ITS ---
Problem List (1) Debility Status: Acute (2) Septic shock Status: Acute (3) Pneumonia Status: Acute (4) Acute on chronic systolic congestive heart failure Status: Acute (5) Acute kidney injury Status: Acute (6) COPD (chronic obstructive pulmonary disease) Status: Chronic (7) Body mass index (BMI) of 39.0 to 39.9 in adult Status: Chronic (8) Complete heart block Status: Chronic (9) Atrial fibrillation Status: Chronic (10) Gout Status: Chronic (11) GERD (gastroesophageal reflux disease) Status: Chronic (12) Hyperlipidemia Status: Chronic Qualifiers: History of Present Illness Date of Admission: 08/06/20 Chief Complaint: Here for rehabilitation, strengthenig, prior to discharge home alone. The patient is a 69 year old Female with below past medical history with followin07/05/20 Defibrillator placement at [facility]. 07/06/20 Thoracotomy with left ventricular epicardial lead placement. Progressive dyspnea, hypoxia secondary to septic shock, pneumonia. 07/08/20 Intubated. 07/15/20 Extubated. Complicated by acute kidney injury. 07/19/20 [facility] 08/06/20 Admit to TCU with debility, here for rehabilitation, strengthening, prior to discharge home alone. Past Medical History Past Medical History (Chronic Problems): Chronic Problems (Last Updated 07/28/20 @ 13:05 by Neda Hendrickson) COPD (chronic obstructive pulmonary disease) (Chronic) Body mass index (BMI) of 39.0 to 39.9 in adult (Chronic) Complete heart block (Chronic) Atrial fibrillation (Chronic) Gout (Chronic) GERD (gastroesophageal reflux disease) (Chronic) Buqiz-or-jyuhabq kidney injury (Chronic) Non-ischemic cardiomyopathy (Chronic) Monomorphic ventricular tachycardia (Chronic) Second degree atrioventricular block (Chronic) Chronic atrial fibrillation (Chronic) Paroxysmal atrial tachycardia (Chronic) Atherosclerotic heart disease of [place] coronary artery without angina pectoris (Chronic) Acute combined systolic (congestive) and diastolic (congestive) heart failure (Chronic) Mitral papillary muscle dysfunction (Chronic) Non-rheumatic tricuspid valve insufficiency (Chronic) Secondary pulmonary arterial hypertension (Chronic) Essential (primary) hypertension (Chronic) Hyperlipidemia (Chronic) ASCUS of cervix with negative high risk HPV (Chronic) needs repeat pap 10/2020 Medical History: Medical History (Last Updated 07/28/20 @ 13:05 by Neda Hendrickson) Sepsis with acute respiratory failure and septic shock (Resolved) Onset Date: 07/07/20 A41.9, R65.21, J96.00 Barpm-zp-zvoecmr kidney injury (Chronic) N17.9, N18.9 Biventricular ICD (implantable cardioverter-defibrillator) in place (Acute) Onset Date: 07/04/20 Z95.810 Biventricular ICD upgrade from Dual chamber PPM on 07/04/2020, requiring placement of epicardial left ventricular lead via left anterior minithoracotomy and connection of lead to SLITTER CREASER SLOTTER HELPER-D generator on 07/06/2020 Non-ischemic cardiomyopathy (Chronic) I42.8 Monomorphic ventricular tachycardia (Chronic) I47.2 Second degree atrioventricular block (Chronic) I44.1 Chronic atrial fibrillation (Chronic) I48.2 Paroxysmal atrial tachycardia (Chronic) I47.1 Atherosclerotic heart disease of [place] coronary artery without angina pectoris (Chronic) I25.10 Acute combined systolic (congestive) and diastolic (congestive) heart failure (Chronic) I50.41 Mitral papillary muscle dysfunction (Chronic) I51.89 Non-rheumatic tricuspid valve insufficiency (Chronic) I36.1 Secondary pulmonary arterial hypertension (Chronic) I27.21 Essential (primary) hypertension (Chronic) I10 Hyperlipidemia (Chronic) E78.5 ASCUS of cervix with negative high risk HPV (Chronic) R87.610 needs repeat pap 10/2020 Malignant neoplasm of cervix uteri, unspecified (Resolved) C53.9 2010:cervix remains. Had radiation and chemo Asthma J45.909 COPD (chronic obstructive pulmonary disease) J44.9 GERD (gastroesophageal reflux disease) K21.9 IBS (irritable bowel syndrome) K58.9 Metabolic syndrome E88.81 Obesity E66.9 Osteoarthritis M19.90 Osteoporosis M81.0 Cervical cancer C53.9 2010:diagnosed after supracervical hysterectomy. Cervix remains(small/stenotic). Radiation and chemo. History of DVT (deep vein thrombosis) Z86.718 Impacted cerumen of both ears H61.23 NSVT (nonsustained ventricular tachycardia) I47.2 Atrial fibrillation, persistent (Inactive) I48.1 Allergies amlodipine besylate [From Norvasc] Allergy (Verified 05/10/20 08:53) Other cough amoxicillin [From Augmentin] Allergy (Verified 08/06/20 15:19) PT UNSURE OF REACTION clavulanic acid [From Augmentin] Allergy (Verified 08/06/20 15:19) PT UNSURE OF REACTION codeine Allergy (Verified 05/10/20 08:53) Nausea/Vom/Diarrhea ibuprofen Allergy (Verified 08/06/20 15:19) PT UNSURE OF REACTION Iodinated Contrast Media [Iodinated Contrast Media - IV Dye] Allergy (Verified 05/10/20 08:53) Hives Iodine and Iodide Containing Produc Allergy (Verified 08/06/20 15:19) Rash rofecoxib [From Vioxx] Allergy (Verified 08/06/20 15:19) PT UNSURE OF REACTION hydrochlorothiazide Adverse Reaction (Verified 05/10/20 08:53) hypokalemia envelope adhesive Adverse Reaction (Uncoded 05/10/20 08:53) Diarrhea Home Medications: Ambulatory Orders Medication Instructions Recorded Allopurinol [Zyloprim] 100 mg PO DAILY 07/28/13 Aspirin E.C. [Ecotrin] 81 mg PO DAILY@0800 07/28/13 Omeprazole [Prilosec] 20 mg PO DAILY 07/28/13 Sertraline HCl [Zoloft] 150 mg PO QHS 06/24/16 Cholecalciferol (Vitamin D3) 2,000 unit PO DAILY 08/25/19 [D3-2000] Nortriptyline HCl [Pamelor] 30 mg PO QHS 08/25/19 Pravastatin Sodium 40 mg PO DAILY 08/25/19 potassium chloride 20 mEq 20 meq PO DAILY #90 tab 09/21/19 tablet,extended release(part/cryst) dapagliflozin 10 mg tablet 10 mg PO DAILY #30 tab 03/09/20 rivaroxaban 20 mg tablet 20 mg PO QDAY #90 tab 05/07/20 albuterol sulfate 90 mcg/actuation 1 puff INHALATION Q6H PRN 05/10/20 aerosol inhaler denosumab 60 mg/mL subcutaneous 60 mg SC [id number] ml 05/10/20 syringe Acetaminophen [Tylenol] 650 mg PO Q6H PRN PRN 08/06/20 Ammonium Lactate [Amlactin] 57 gm TP DAILY 08/06/20 Apixaban [Eliquis] 5 mg PO BID 08/06/20 Atorvastatin Calcium [Lipitor] 10 mg PO QHS 08/06/20 Carvedilol 6.25 mg PO BID 08/06/20 DiphenhydrAMINE [Benadryl] 25 mg PO Q8H PRN PRN 08/06/20 Furosemide 20 mg PO BID 08/06/20 Hydrocortisone 2.5% Crm [Hytone] 1 applic TOPICAL BID 08/06/20 Ipratropium/Albuterol Sulfate 3 ml INHALATION Q6H PRN PRN 08/06/20 [Duoneb] Loperamide [Imodium] 2 mg PO TID PRN 08/06/20 Losartan Potassium [Cozaar] 50 mg PO DAILY 08/06/20 Mag Hydrox/Al Hydrox/Simeth 10 ml PO Q6H PRN PRN 08/06/20 [Mylanta II] Magnesium Oxide [Magnesium Oxide 240 mg PO BID 08/06/20 400] Pantoprazole Sodium [Protonix] 40 mg PO DAILY 08/06/20 Sennosides/Docusate Sodium [Senna 1 ea PO DAILY 08/06/20 Plus 8.6-50 mg Tablet] Surgical History: Surgical History (Last Updated 07/28/20 @ 13:05 by Neda Hendrickson) History of thoracotomy (Resolved) Onset Date: 07/06/20 Z98.890 Placement of epicardial left ventricular lead via left anterior minithoracotomy and connection of lead to SLITTER CREASER SLOTTER HELPER-D generator. Presence of permanent cardiac pacemaker (Resolved) Onset Date: 02/25/11 Z95.0 H/O hysterectomy with oophorectomy cervix remains History of cardioversion Onset Date: 09/26/19 Z98.890 History of cholecystectomy Z90.49 History of electrophysiologic study Onset Date: 02/25/11 Z98.890 History of left heart catheterization Onset Date: 07/29/13 Z98.890 History of tonsillectomy and adenoidectomy Z98.890 Surgical History: adenoidectomy, cholecystectomy, hysterectomy - Total abdominal., pacemaker implantation, tonsillectomy, - - Cardioversion. Psychiatric History: No pertinent psych hx [employer] History: cervical cancer Lives: Alone Smoking Status: Never smoker Tobacco Use: Non-smoker Alcohol: None Drugs: None - *Family History Maternal Family History: Family History (Last Reviewed 05/10/20 @ 09:[address] Shahid Alejandro MD) Mother Brain cancer Father Prostate cancer History Items: - - No coronary artery disease Review of Systems Constitutional: Denies: Chills, Fever, Weight Change HEENT: Denies: Head Aches, Sinus Congestion, Sinus Drainage Cardiovascular: Denies: Chest Pain, Palpitations Respiratory: Denies: Cough, Shortness of breath at rest, Sputum production Gastrointestinal: Denies: Abdominal Pain, Nausea, Vomiting Genitourinary: Denies: Dysuria Musculoskeletal: Denies: Joint Pain, Joint Tenderness Skin: Denies: Rash, Wounds Neurological: Denies: Numbness, Tingling, Focal weakness Psychiatric: Denies: Anxiety, Depression, Homicidal Ideations, Suicidal Ideations Hematologic/ Lymphatic: Denies: Easy Bruising, Easy Bleeding VTE Information - Inpt Only VTE Present on Admission: No VTE Mechan Device Prophylaxis: Knee High TERRIE Hose VTE Pharm Prophylaxis ordered?: No Reason prophylaxis not ordered:: Treatment Not Indicated Patient Problems: Active and Suspected Problems (Last Updated 07/28/20 @ 13:05 by Neda Hendrickson) Debility (Acute) Septic shock (Acute) Pneumonia (Acute) Acute on chronic systolic congestive heart failure (Acute) Acute kidney injury (Acute) - Physical Exam Vitals/I&O's: Vital Signs Temp Pulse Resp BP Pulse Ox 97.2 F L 64 16 107/60 98 08/06/20 14:30 08/06/20 14:30 08/06/20 14:30 08/06/20 14:30 08/06/20 14:30 Oxygen Flow Rate (L/min) 1 Oxygen Delivery Method Nasal Cannula Weight: 100.045 kg Body Mass Index (BMI) 39.0 General: Alert, Oriented x3, Cooperative HEENT: Atraumatic, PERRLA, EOMI, Normocephalic Neck: Supple, No JVD, Negative Carotid Bruits Lungs: Clear to auscultation, Normal air movement Cardiovascular: Regular rate, No murmurs Abdomen: Bowel Sounds Present, Soft, Non Tender Extremities: No edema, Capillary Refill Less than 3 Seconds Skin: No rashes, No breakdown Musculoskeletal: No Tenderness to Palpation of Joints or Extremities Neurological: Cranial nerves II-XII grossly intact Psych/Mental Status: Normal Affect, Appropriate Laboratory Results 08/06/20 19:15: COVID-19 ([place]) Pending Current Medications Acetaminophen (Tylenol) 650 mg PO Q6H PRN PRN PRN Reason: Pain Score 4-10 Al Hydroxide/Mg Hydroxide (Mylanta Ii) 10 ml PO Q6H PRN PRN PRN Reason: Stomach upset Albuterol Sulfate (Ventolin Hfa (Sp)) 1 puff INHALATION Q6H PRN PRN PRN Reason: short of breath/weezing Albuterol/Ipratropium (Duoneb) 3 ml INHALATION Q6H PRN PRN PRN Reason: Wheezing/SOB [facility]) [facility] Apixaban (Eliquis) 5 mg PO BID [facility] Last Admin: 08/06/20 17:53 Dose: 5 mg Documented by: Atorvastatin Calcium (Lipitor) 10 mg PO QHS [facility] Calamine/Phenol (Calmoseptine Ointment) 1 applic TOPICAL 0600,2200 [facility]; Protocol Carvedilol (Coreg) 6.25 mg PO BID [facility] Last Admin: 08/06/20 17:53 Dose: 6.25 mg Documented by: Cholecalciferol (Vitamin D (25mcg)) 2,000 unit PO DAILY [facility] Diphenhydramine HCl (Benadryl) 25 mg PO Q8H PRN PRN PRN Reason: ITCHING Furosemide (Lasix) 20 mg PO BID [facility] Last Admin: 08/06/20 17:54 Dose: 20 mg Documented by: Hydrocortisone (Hytone) 1 applic TOPICAL BID [facility]; Protocol Last Admin: 08/06/20 17:54 Dose: 1 applicatio Documented by: Lactic Acid (Lac-Hydrin, Amlactin) 1 applic TOPICAL DAILY [facility]; Protocol Loperamide HCl (Imodium) 2 mg PO TID PRN PRN Reason: Diarrhea Losartan Potassium (Cozaar) 50 mg PO DAILY [facility] Magnesium Chloride (Mag64) 128 mg PO BID [facility] Last Admin: 08/06/20 17:55 Dose: 128 mg Documented by: Nortriptyline HCl (Pamelor) 30 mg PO QHS [facility] Nystatin (Mycostatin Powder) 1 applic TOPICAL BID [facility]; Protocol Pantoprazole Sodium (Protonix) 40 mg PO DAILY [facility] Senna/Docusate Sodium (Senokot-S, Za-Colace) 1 tablet PO DAILY [facility] Sertraline HCl (Zoloft) 150 mg PO QHS [facility] Tuberculin PPD (Tubersol, Aplisol, Ppd) 5 tu ID X1 ONE Stop: 08/07/20 10:01 Tuberculin PPD (Tubersol, Aplisol, Ppd) 5 tu ID X1 ONE Stop: 08/14/20 10:01 Assessment/Plan All Active Problems (Last Updated 07/28/20 @ 13:05 by Neda Hendrickson) Debility (Acute) Septic shock (Acute) Pneumonia (Acute) Acute on chronic systolic congestive heart failure (Acute) Acute kidney injury (Acute) Sepsis with acute respiratory failure and septic shock (Resolved 07/07/20) History of thoracotomy (Resolved 07/06/20) Biventricular ICD (implantable cardioverter-defibrillator) in place (Acute 07/04/20) Presence of permanent cardiac pacemaker (Resolved 02/25/11) Malignant neoplasm of cervix uteri, unspecified (Resolved) Anginal equivalent (Resolved) 69 year old female with below past medical history significant for recent defibrillator implantation, complicated by septic shock, pneumonia, acute kidney injury, admitted to TCU with debility, here for rehabilitation, strengthening, prior to discharge home alone. * Debility - PT/OT. * Pain - Tylenol 1000MG Q6H PRN pain (1-10). * Bowel - Miralax 17GM daily, Senna/colace 2 tablets BID, Dulcolax 10MG [place] daily PRN. * Adult immunization - Administer Prevnar 13, Pneumovax 23, Fluzone as appropriate. * DVT prophylaxis - Not necessary, already anticoagulated. * COPD - Duoneb 3ML Q6H PRN, Albuterol MDI 1 puff Q6H PRN. * Gout - Allopurinol 100MG daily. * Skin irritation - Lac-Hydrin topical daily, Calmoseptine BID. * Atrial Fibrillation - Coreg 6.25MG BID, Eliquis 5MG BID. * Hyperlipidemia - Atorvastatin 10MG QHS. * Vitamin D deficiency - D3 2000IU daily. * Chronic systolic congestive heart failure - Coreg 6.25MG BID, Losartan 50MG daily, Lasix 20MG BID. * Rash - Hytone 2.5% topical BID. * Indigestion - Mylanta II 10ML Q6H PRN. * Hypomagnesemia - Magnesium chloride 128MG BID. * Neuropathic pain - Nortriptyline 30MG QHS, stable chronic termite technician use, GDR not recommended. * Tinea Corporis - Nystatin powder topical BID. * GERD - Pantoprazole 40MG daily. * Depression - Sertraline 150MG QHS, stable chronic snf use, GDR not recommended.
--- NOTE | 2020-08-06 20:37 | RAD_ITS ---
HISTORY: Irritable bowel syndrome, diarrhea. ADDITIONAL HISTORY: None. COMPARISON: 04/07/2014 EXAMINATION/TECHNIQUE: XR Abdomen 1 View Number of images including paperwork: 3 FINDINGS: FREE AIR: None detected. BOWEL GAS PATTERN: Nonobstructive. CALCIFICATIONS: No definite urinary tract calculi. Ovoid densities in the left upper abdomen are likely bowel content. ORGANS: No evidence of organomegaly. SOFT TISSUES: Unremarkable. BONES: No acute skeletal findings. Degenerative changes. LOWER CHEST: Left pleural effusion partially visible. Cardiomegaly. Cardiac device leads. DEVICES: Right upper quadrant surgical clips. RAD/Abdomen Single View IMPRESSION: No acute abdominal abnormality is radiographically apparent. at [id number] Reported and signed by: Mare Kumar MD Electronically Signed: Mare Kumar MD at 23:14 EDT Tel , Service support ,
[2020-08-06] MEDS: Sertraline 100 MG Tablet 150 MG PO (20:50)
[2020-08-06] MEDS: Nortriptyline 10 MG Capsule 30 MG PO (20:50)
[2020-08-06] MEDS: Atorvastatin Calcium 10 MG Tablet PO (20:50)
[2020-08-06] MEDS: Menthol/Lanolin/Calamine/Znox 113 GM Tube 1 APPLIC TOPICAL (20:51)
[2020-08-06 23:10] VITALS: PULSE 62; RESP 16; O2SAT 96
[2020-08-06] MEDS: Ipratropium/Albuterol Sulfate 3 ML AMPUL.NEB INHALATION (23:10)
[2020-08-07] MEDS: Mag Hydrox/Al Hydrox/Simeth 30 ML UDC 10 ML PO (05:22)
[2020-08-07] MEDS: Ammonium Lactate 225 gm Bottle 1 APPLIC TOPICAL (05:32)
[2020-08-07] MEDS: Hydrocortisone 2.5% Crm 1 APPLIC TOPICAL ×2 (05:33→17:54)
[2020-08-07] MEDS: Menthol/Lanolin/Calamine/Znox 113 GM Tube 1 APPLIC TOPICAL ×2 (05:34→20:50)
[2020-08-07] MEDS: Nystatin Powder 15gm Bottle 1 APPLIC TOPICAL (05:37)
--- NOTE | 2020-08-07 05:37 | NURSING ---
Patient c/o nausea. Requested to hold AM medications at this time. PRN Mylanta given. Patient in position of comfort.
[2020-08-07 05:58] LABS: Absolute Lymphocyte Count 0.81 X10^3/uL (0.83-4.51); Absolute Neutrophil Count 5.3 X10^3/uL (2.0-7.7); Basophil# 0.02 X10^3/uL; Basophil% 0.3 % (0-1); Eosinophil# 0.98 X10^3/uL; Hematocrit 30.3 % (37-47); Hemoglobin 8.6 g/dL (12.0-15.0); Lymphocyte # 0.81 X10^3/ul (4.0); Lymphocyte % 10.8 % (19-41); Mean Corp Hgb Conc 28.4 g/dL (32-36); Mean Corpuscular Hgb 24.6 pg (27.0-32.0); Mean Corpuscular Volume 86.6 fL (81-99); Mean Platelet Vol. 10.7 fl (6.2-12.0); Monocyte# 0.41 X10^3/uL; Monocyte% 5.5 % (0-10); NRBC Flagged by Analyzer 0 % (0-5); Neutrophil # 5.26 X10^3/uL (2.7-7.7); Neutrophil % 69.9 % (47-70); Platelet Count 271 K/mm3 (150-450); RBC Distribution Width CV 18.2 % (11.6-14.6); RBC Distribution Width SD 57.1 fl (35.1-43.9); White Blood Count 7.5 K/mm3 (4.4-11.0)
[2020-08-07 06:21] LABS: Anion Gap 5 (5-15); BUN 21 mg/dL (7-18); Calcium,Total 9.3 mg/dL (8.5-10.1); Chloride 101 mmol/L (98-107); Creatinine, Serum 1.61 mg/dL (0.55-1.02); EST Glomerular Filtration Rate 34 mL/min (>60); Est Glom Filt Rate - Afr Amer 41 mL/min (>60); Estimated Creatinine Clearance 27.66 ml/min; Glucose 95 mg/dL (74-106); Potassium 3.9 mmol/L (3.5-5.1); Sodium Level 137 mmol/L (136-145)
[2020-08-07 09:35] VITALS: BP 129/66; PULSE 61
[2020-08-07] MEDS: Magnesium Chloride 64 MG Delay Rel.Tablet 128 MG PO ×2 (09:38→17:52)
[2020-08-07] MEDS: Pantoprazole Sodium 40 MG Tablet PO (09:38)
[2020-08-07] MEDS: Carvedilol 6.25 MG Tablet PO ×2 (09:38→17:53)
[2020-08-07] MEDS: APIXABAN 5 MG TABLET PO ×2 (09:38→17:53)
[2020-08-07] MEDS: Losartan Potassium 50 MG Tablet PO (09:38)
[2020-08-07] MEDS: Furosemide 20 MG Tablet PO ×2 (09:38→17:52)
[2020-08-07] MEDS: Allopurinol 100 MG Tablet PO (09:39)
[2020-08-07 10:00] VITALS: PULSE 61; RESP 18; O2SAT 96
[2020-08-07] MEDS: Tuberculin,Purif.prot.deriv. 50 TU/ML Vial 5 ML ID (13:18)
[2020-08-07 13:56] VITALS: BP 99/51; PULSE 64; RESP 17; TEMP 36.8; O2SAT 96
--- NOTE | 2020-08-07 15:51 | NURSING ---
NO NEW UPDATES AT THIS TIME.
[2020-08-07 17:52] VITALS: BP 121/67; PULSE 61
[2020-08-07] MEDS: Nortriptyline 10 MG Capsule 30 MG PO (20:48)
[2020-08-07] MEDS: Sertraline 100 MG Tablet 150 MG PO (20:48)
[2020-08-07] MEDS: Atorvastatin Calcium 10 MG Tablet PO (20:48)
--- NOTE | 2020-08-07 23:38 | PCA ---
patient received help with AM care from therapy in the morning and did not wish to get washed up tonight.
[2020-08-08 06:30] VITALS: O2SAT 92
[2020-08-08] MEDS: Losartan Potassium 50 MG Tablet PO (06:45)
[2020-08-08] MEDS: Pantoprazole Sodium 40 MG Tablet PO (06:45)
[2020-08-08] MEDS: Magnesium Chloride 64 MG Delay Rel.Tablet 128 MG PO ×2 (06:45→17:14)
[2020-08-08] MEDS: Furosemide 20 MG Tablet PO ×2 (06:45→17:14)
[2020-08-08] MEDS: APIXABAN 5 MG TABLET PO ×2 (06:45→17:14)
[2020-08-08] MEDS: Hydrocortisone 2.5% Crm 1 APPLIC TOPICAL ×2 (06:45→17:14)
[2020-08-08] MEDS: Ammonium Lactate 225 gm Bottle 1 APPLIC TOPICAL (06:46)
[2020-08-08] MEDS: Nystatin Powder 15gm Bottle 1 APPLIC TOPICAL (06:47)
[2020-08-08] MEDS: Menthol/Lanolin/Calamine/Znox 113 GM Tube 1 APPLIC TOPICAL ×2 (06:47→22:55)
[2020-08-08 06:48] VITALS: BP 126/50; PULSE 60; RESP 16; TEMP 36.7; O2SAT 92
[2020-08-08 08:17] VITALS: BP 107/64; PULSE 64; O2SAT 94
[2020-08-08] MEDS: Iron Polysaccharide Complex 150 MG CAPSULE PO (08:18)
[2020-08-08] MEDS: Carvedilol 6.25 MG Tablet PO ×2 (08:18→17:14)
[2020-08-08] MEDS: Allopurinol 100 MG Tablet PO (08:18)
--- NOTE | 2020-08-08 13:30 | PHA.CONS_ITS ---
<Tata Jacobs - Last Filed: 08/08/20 13:30> Progress Note - Pharmacy Subjective: TCU Admission Objective: Allergies amlodipine besylate [From Norvasc] Allergy (Verified 05/10/20 08:53) Other cough amoxicillin [From Augmentin] Allergy (Verified 08/06/20 15:19) PT UNSURE OF REACTION clavulanic acid [From Augmentin] Allergy (Verified 08/06/20 15:19) PT UNSURE OF REACTION codeine Allergy (Verified 05/10/20 08:53) Nausea/Vom/Diarrhea ibuprofen Allergy (Verified 08/06/20 15:19) PT UNSURE OF REACTION Iodinated Contrast Media [Iodinated Contrast Media - IV Dye] Allergy (Verified 05/10/20 08:53) Hives Iodine and Iodide Containing Produc Allergy (Verified 08/06/20 15:19) Rash rofecoxib [From Vioxx] Allergy (Verified 08/06/20 15:19) PT UNSURE OF REACTION hydrochlorothiazide Adverse Reaction (Verified 05/10/20 08:53) hypokalemia envelope adhesive Adverse Reaction (Uncoded 05/10/20 08:53) Diarrhea Current Medications Generic Name Dose Route Start Last Admin Trade Name Freq PRN Reason Stop Dose Admin Acetaminophen 1,000 mg 08/06/20 20:45 Tylenol PO Q6H PRN PRN Pain Score 1-10 Al Hydroxide/Mg Hydroxide 10 ml 08/06/20 15:03 08/07/20 05:22 Mylanta Ii PO 10 ml Q6H PRN PRN Administration Stomach upset Albuterol Sulfate 1 puff 08/06/20 16:56 Ventolin Hfa (Sp) INHALATION Q6H PRN PRN short of breath/weezing Albuterol/Ipratropium 3 ml 08/06/20 15:03 08/06/20 23:10 Duoneb INHALATION 3 ml Q6H PRN PRN Administration Wheezing/SOB Allopurinol 100 mg 08/07/20 08:00 08/08/20 08:18 Zyloprim PO 100 mg DAILYCM BE Administration Apixaban 5 mg 08/06/20 18:00 08/08/20 06:45 Eliquis PO 5 mg BID BE Administration Atorvastatin Calcium 10 mg 08/06/20 22:00 08/07/20 20:48 Lipitor PO 10 mg QHS BE Administration Bisacodyl 10 mg 08/06/20 20:45 Dulcolax RECTAL DAILY PRN Constipation Calamine/Phenol 1 applic 08/06/20 22:00 08/08/20 06:47 Calmoseptine Ointment TOPICAL 1 applicatio 0600,2200 BE Administration Protocol Carvedilol 6.25 mg 08/07/20 08:00 08/08/20 08:18 Coreg PO 6.25 mg BIDCM BE Administration Cholecalciferol 2,000 unit 08/07/20 06:00 08/08/20 06:45 Vitamin D (25mcg) PO 2,000 unit DAILY BE Administration Furosemide 20 mg 08/06/20 18:00 08/08/20 06:45 Lasix PO 20 mg BID BE Administration Hydrocortisone 1 applic 08/06/20 18:00 08/08/20 06:45 Hytone TOPICAL 1 applicatio BID BE Administration Protocol Lactic Acid 1 applic 08/07/20 06:00 08/08/20 06:46 Ammonium Lactate 225 Gm Bottle TOPICAL 1 applicatio DAILY BE Administration Protocol Losartan Potassium 50 mg 08/07/20 06:00 08/08/20 06:45 Cozaar PO 50 mg DAILY BE Administration Magnesium Chloride 128 mg 08/06/20 18:00 08/08/20 06:45 Mag64 PO 128 mg BID BE Administration Nortriptyline HCl 30 mg 08/06/20 22:00 08/07/20 20:48 Pamelor PO 30 mg QHS BE Administration Nystatin 1 applic 08/07/20 06:00 08/08/20 06:47 Mycostatin Powder TOPICAL 1 applicatio BID BE Administration Protocol Pantoprazole Sodium 40 mg 08/07/20 06:00 08/08/20 06:45 Protonix PO 40 mg DAILY BE Administration Polyethylene Glycol 17 gm 08/07/20 06:00 08/08/20 06:43 Miralax PO Not Given DAILY BE Polysaccharide Iron Complex 150 mg 08/08/20 08:00 08/08/20 08:18 Iron Polysaccharide Complex 150 Mg Capsule PO 150 mg DAILYCM BE Administration Senna/Docusate Sodium 2 tablet 08/07/20 06:00 08/08/20 06:44 Senokot-S, Za-Colace PO Not Given BID BE Sertraline HCl 150 mg 08/06/20 22:00 08/07/20 20:48 Zoloft PO 150 mg QHS BE Administration Tuberculin PPD 5 tu 08/14/20 10:00 Tubersol, Aplisol, Ppd ID 08/14/20 10:01 X1 ONE Problem List (Last Updated 07/28/20 @ 13:05 by Neda Hendrickson) Debility (Acute) Septic shock (Acute) Pneumonia (Acute) Acute on chronic systolic congestive heart failure (Acute) Acute kidney injury (Acute) COPD (chronic obstructive pulmonary disease) (Chronic) Body mass index (BMI) of 39.0 to 39.9 in adult (Chronic) Complete heart block (Chronic) Atrial fibrillation (Chronic) Gout (Chronic) GERD (gastroesophageal reflux disease) (Chronic) Vital Signs Temp Pulse Resp BP Pulse Ox 98.1 F 64 16 107/64 94 08/08/20 06:48 08/08/20 08:17 08/08/20 06:48 08/08/20 08:17 08/08/20 08:17 Oxygen Flow Rate (L/min) 1 Oxygen Delivery Method Room Air Weight: 100.1 kg Body Mass Index (BMI) 39.0 Sodium 137 mmol/L (136-145) 08/07/20 05:05 Potassium 3.9 mmol/L (3.5-5.1) 08/07/20 05:05 Chloride 101 mmol/L (98-107) 08/07/20 05:05 Carbon Dioxide 31.0 mmol/L (21.0-32.0) 08/07/20 05:05 Anion Gap 5 (5-15) 08/07/20 05:05 BUN 21 mg/dL (7-18) H 08/07/20 05:05 Creatinine 1.61 mg/dL (0.55-1.02) H 08/07/20 05:05 Est GFR (MDRD) Af Amer 41 mL/min (>60) L 08/07/20 05:05 Est GFR (MDRD) Non-Af 34 mL/min (>60) L 08/07/20 05:05 BUN/Creatinine Ratio 13.0 RATIO (-20) 08/07/20 05:05 Glucose 95 mg/dL (74-106) 08/07/20 05:05 Assessment/Plan: 1. Pain: acetaminophen 1000mg PO Q6H PRN pain 1-08/04. Please continue to monitor for S/S increased pain and PRN usage. 2. Atrial fibrillation/CHF: apixaban 5mg PO BID, carvedilol 6.25mg PO BIDCM, losartan 50mg PO daily, furosemide 20mg PO BID. Please continue to monitor BP (last 107/64), HR (last 64), potassium (last 3.9mmol/L), renal function, and S/S of bleeding/DVT. 3. COPD: ipratropium/albuterol 3mL Q6H PRN wheezing/SOB (first line) and albuterol inhaler 1inhalation Q6H PRN wheezing/SOB (second line). Please continue to monitor for S/S of SOB. 4. Gout: allopurinol 100mg PO DAILYCM. Please continue to monitor renal function and for S/S of gout. 5. Hyperlipidemia: atorvastatin 10mg PO QHS. Please continue to monitor for muscle pain and annual lipid panel. 6. Indigestion: Mylanta II 10mL PO Q6H PRN stomach upset. Please continue to monitor for stomach upset and PRN usage. *7. Hypomagnesemia: magnesium chloride 128mg PO BID. Please consider ordering a magnesium level. Thanks. 8. GERD: pantoprazole 40mg PO daily. Please continue to monitor. *9. Vitamin D deficiency: cholecalciferol 2000units PO daily. Please consider ordering a vitamin D level. Last level from 01/2018. 10. Iron deficiency (hemoglobin 8.9 g/dL): Ferrex 150mg PO DAILYCM. Please continue to monitor hemoglobin and for dark stools. Psychotropic Medications: 1. Neuropathic pain: nortriptyline 30mg PO QHS. Please see physician note regarding GDR. 2. Depression: sertraline 150mg PO QHS. Please see physician note regarding GDR. Unnecessary Medications: None *Bowel Regimen: Miralax 17gm PO daily, senna/docusate 2T PO BID, and bisacodyl 10mg GA daily PRN constipation. Patient has refused 2/2 doses of Miralax and 3/3 doses of senna/docusate. Please consider changing from scheduled to PRN. Please continue to monitor for S/S of constipation/diarrhea and PRN usage. Date of Note:: 08/08/20 - Provider Comments Provider responsibility: Provider responsible to enter orders to implement recommendations <UsmanBrigido Waters - Last Filed: 08/08/20 18:22> Progress Note - Pharmacy Subjective: [] Objective: Allergies amlodipine besylate [From Norvasc] Allergy (Verified 05/10/20 08:53) Other cough amoxicillin [From Augmentin] Allergy (Verified 08/06/20 15:19) PT UNSURE OF REACTION clavulanic acid [From Augmentin] Allergy (Verified 08/06/20 15:19) PT UNSURE OF REACTION codeine Allergy (Verified 05/10/20 08:53) Nausea/Vom/Diarrhea ibuprofen Allergy (Verified 08/06/20 15:19) PT UNSURE OF REACTION Iodinated Contrast Media [Iodinated Contrast Media - IV Dye] Allergy (Verified 05/10/20 08:53) Hives Iodine and Iodide Containing Produc Allergy (Verified 08/06/20 15:19) Rash rofecoxib [From Vioxx] Allergy (Verified 08/06/20 15:19) PT UNSURE OF REACTION hydrochlorothiazide Adverse Reaction (Verified 05/10/20 08:53) hypokalemia envelope adhesive Adverse Reaction (Uncoded 05/10/20 08:53) Diarrhea Current Medications Generic Name Dose Route Start Last Admin Trade Name Freq PRN Reason Stop Dose Admin Acetaminophen 1,000 mg 08/06/20 20:45 Tylenol PO Q6H PRN PRN Pain Score 1-10 Al Hydroxide/Mg Hydroxide 10 ml 08/06/20 15:03 08/07/20 05:22 Mylanta Ii PO 10 ml Q6H PRN PRN Administration Stomach upset Albuterol Sulfate 1 puff 08/06/20 16:56 Ventolin Hfa (Sp) INHALATION Q6H PRN PRN short of breath/weezing Albuterol/Ipratropium 3 ml 08/06/20 15:03 08/06/20 23:10 Duoneb INHALATION 3 ml Q6H PRN PRN Administration Wheezing/SOB Allopurinol 100 mg 08/07/20 08:00 08/08/20 08:18 Zyloprim PO 100 mg DAILYCM BE Administration Apixaban 5 mg 08/06/20 18:00 08/08/20 17:14 Eliquis PO 5 mg BID BE Administration Atorvastatin Calcium 10 mg 08/06/20 22:00 08/07/20 20:48 Lipitor PO 10 mg QHS BE Administration Bisacodyl 10 mg 08/06/20 20:45 Dulcolax RECTAL DAILY PRN Constipation Calamine/Phenol 1 applic 08/06/20 22:00 08/08/20 06:47 Calmoseptine Ointment TOPICAL 1 applicatio 0600,2200 BE Administration Protocol Carvedilol 6.25 mg 08/07/20 08:00 08/08/20 17:14 Coreg PO 6.25 mg BIDCM BE Administration Cholecalciferol 2,000 unit 08/07/20 06:00 08/08/20 06:45 Vitamin D (25mcg) PO 2,000 unit DAILY BE Administration Furosemide 20 mg 08/06/20 18:00 08/08/20 17:14 Lasix PO 20 mg BID BE Administration Hydrocortisone 1 applic 08/06/20 18:00 08/08/20 17:14 Hytone TOPICAL 1 applicatio BID BE Administration Protocol Lactic Acid 1 applic 08/07/20 06:00 08/08/20 06:46 Ammonium Lactate 225 Gm Bottle TOPICAL 1 applicatio DAILY BE Administration Protocol Loperamide HCl 2 mg 08/08/20 18:18 Loperamide 2 Mg Capsule PO Q6H PRN PRN Diarrhea Losartan Potassium 50 mg 08/07/20 06:00 08/08/20 06:45 Cozaar PO 50 mg DAILY BE Administration Magnesium Chloride 128 mg 08/06/20 18:00 08/08/20 17:14 Mag64 PO 128 mg BID BE Administration Nortriptyline HCl 30 mg 08/06/20 22:00 08/07/20 20:48 Pamelor PO 30 mg QHS BE Administration Nystatin 1 applic 08/07/20 06:00 08/08/20 17:15 Mycostatin Powder TOPICAL Not Given BID [facility] Protocol Pantoprazole Sodium 40 mg 08/07/20 06:00 08/08/20 06:45 Protonix PO 40 mg DAILY BE Administration Polyethylene Glycol 17 gm 08/07/20 06:00 08/08/20 06:43 Miralax PO Not Given DAILY [facility] Polysaccharide Iron Complex 150 mg 08/08/20 08:00 08/08/20 08:18 Iron Polysaccharide Complex 150 [facility] Administration Senna/Docusate Sodium 2 tablet 08/07/20 06:00 08/08/20 17:13 Senokot-S, Za-Colace PO Not Given BID BE Sertraline HCl 150 mg 08/06/20 22:00 08/07/20 20:48 Zoloft PO 150 mg QHS BE Administration Tuberculin PPD 5 tu 08/14/20 10:00 Tubersol, Aplisol, Ppd ID 08/14/20 10:01 X1 ONE Problem List (Last Updated 07/28/20 @ 13:05 by Neda Hendrickson) Debility (Acute) Septic shock (Acute) Pneumonia (Acute) Acute on chronic systolic congestive heart failure (Acute) Acute kidney injury (Acute) COPD (chronic obstructive pulmonary disease) (Chronic) Body mass index (BMI) of 39.0 to 39.9 in adult (Chronic) Complete heart block (Chronic) Atrial fibrillation (Chronic) Gout (Chronic) GERD (gastroesophageal reflux disease) (Chronic) Vital Signs Temp Pulse Resp BP Pulse Ox 97.3 F L 80 20 H 90/51 L 94 08/08/20 13:48 08/08/20 13:48 08/08/20 13:48 08/08/20 13:48 08/08/20 13:48 Oxygen Flow Rate (L/min) 1 Oxygen Delivery Method Room Air Weight: 100.1 kg Body Mass Index (BMI) 39.0 Sodium 137 mmol/L (136-145) 08/07/20 05:05 Potassium 3.9 mmol/L (3.5-5.1) 08/07/20 05:05 Chloride 101 mmol/L (98-107) 08/07/20 05:05 Carbon Dioxide 31.0 mmol/L (21.0-32.0) 08/07/20 05:05 Anion Gap 5 (5-15) 08/07/20 05:05 BUN 21 mg/dL (7-18) H 08/07/20 05:05 Creatinine 1.61 mg/dL (0.55-1.02) H 08/07/20 05:05 Est GFR (MDRD) Af Amer 41 mL/min (>60) L 08/07/20 05:05 Est GFR (MDRD) Non-Af 34 mL/min (>60) L 08/07/20 05:05 BUN/Creatinine Ratio 13.0 RATIO (10-20) 08/07/20 05:05 Glucose 95 mg/dL (74-106) 08/07/20 05:05 Assessment/Plan: Psychotropic Medications: Unnecessary Medications: Bowel Regimen: - Provider Comments Provider responsibility: Provider responsible to enter orders to implement recommendations Provider Comments to Recommendations by Pharmacy: Agree
[2020-08-08 13:48] VITALS: BP 90/51; PULSE 80; RESP 20; TEMP 36.3; O2SAT 94
--- NOTE | 2020-08-08 14:07 | NURSING ---
NO NEW ORDERS AT THIS TIME
--- NOTE | 2020-08-08 14:12 | CASEMGMT ---
Social Work SW spoke with pt regarding end of life wishes and assisted pt in completing MOLST form. PT preference is DNRCCA, no intubation, no artificial nutrition. MOLST form placed on chart. LADAN Arrington
--- NOTE | 2020-08-08 19:00 | RAD_ITS ---
HISTORY: DIARRHEA ADDITIONAL HISTORY: None. COMPARISON: 08/06/2020 EXAMINATION/TECHNIQUE: XR Abdomen 1 View Number of images including paperwork: 2 FINDINGS: FREE AIR: None detected. BOWEL GAS PATTERN: Nonobstructive. Ovoid densities in the left abdomen suggestive of pills. CALCIFICATIONS: No definite urinary tract calculi. ORGANS: Prominent hepatic and splenic shadows. SOFT TISSUES: Unremarkable. BONES: No acute skeletal findings. Degenerative changes. LOWER CHEST: Left pleural effusion. DEVICES: Cardiac device leads partially visible. Right upper quadrant surgical clips. RAD/Abdomen Single View IMPRESSION: No acute abdominal abnormality is radiographically apparent. at 2205 Reported and signed by: Mare Kumar MD Electronically Signed: Mare Kumar MD at 22:04 EDT Tel , Service support ,
[2020-08-08] MEDS: Nortriptyline 10 MG Capsule 30 MG PO (22:49)
[2020-08-08] MEDS: Sertraline 100 MG Tablet 150 MG PO (22:50)
[2020-08-08] MEDS: Atorvastatin Calcium 10 MG Tablet PO (22:51)
[2020-08-08 22:55] VITALS: RESP 16; O2SAT 93
--- NOTE | 2020-08-09 03:14 | NURSING ---
Patient was told that the doctor ordered golytely because she had a lot of fecal. Patient states that she has been having a lot of loose stool and has IBS. Pt refused the golytely.
[2020-08-09 05:00] VITALS: BP 138/71; PULSE 63; RESP 16; TEMP 36.6; O2SAT 93
[2020-08-09] MEDS: APIXABAN 5 MG TABLET PO ×2 (06:23→17:36)
[2020-08-09] MEDS: Losartan Potassium 50 MG Tablet PO (06:23)
[2020-08-09] MEDS: Furosemide 20 MG Tablet PO ×2 (06:23→17:36)
[2020-08-09] MEDS: Magnesium Chloride 64 MG Delay Rel.Tablet 128 MG PO ×2 (06:23→17:35)
[2020-08-09] MEDS: Pantoprazole Sodium 40 MG Tablet PO (06:24)
[2020-08-09] MEDS: Nystatin Powder 15gm Bottle 1 APPLIC TOPICAL ×2 (06:26→22:00)
[2020-08-09] MEDS: Menthol/Lanolin/Calamine/Znox 113 GM Tube 1 APPLIC TOPICAL ×2 (06:26→22:00)
[2020-08-09] MEDS: Hydrocortisone 2.5% Crm 1 APPLIC TOPICAL ×2 (06:27→17:38)
[2020-08-09] MEDS: Ammonium Lactate 225 gm Bottle 1 APPLIC TOPICAL (06:28)
[2020-08-09 07:11] VITALS: O2SAT 94
[2020-08-09] MEDS: Allopurinol 100 MG Tablet PO (07:54)
[2020-08-09] MEDS: Iron Polysaccharide Complex 150 MG CAPSULE PO (07:54)
[2020-08-09] MEDS: Carvedilol 6.25 MG Tablet PO ×2 (07:54→17:36)
[2020-08-09 09:26] VITALS: PULSE 65; RESP 16; O2SAT 95
[2020-08-09 13:23] VITALS: BP 91/53; PULSE 66; RESP 17; TEMP 36.6; O2SAT 93
[2020-08-09] MEDS: Lactulose 20 GM/30 ML UDC PO (17:33)
[2020-08-09] MEDS: Senna/Docusate Sodium 1 Tablet 2 TABLET PO (17:36)
[2020-08-09] MEDS: Sertraline 100 MG Tablet 150 MG PO (21:56)
[2020-08-09] MEDS: Nortriptyline 10 MG Capsule 30 MG PO (21:57)
[2020-08-09] MEDS: Atorvastatin Calcium 10 MG Tablet PO (21:57)
[2020-08-10 05:00] VITALS: BP 127/74; PULSE 60; RESP 16; TEMP 36.9; O2SAT 95
[2020-08-10] MEDS: Lactulose 20 GM/30 ML UDC PO ×2 (06:27→18:02)
[2020-08-10] MEDS: Senna/Docusate Sodium 1 Tablet 2 TABLET PO ×2 (06:28→18:04)
[2020-08-10] MEDS: Pantoprazole Sodium 40 MG Tablet PO (06:28)
[2020-08-10] MEDS: Losartan Potassium 50 MG Tablet PO (06:28)
[2020-08-10] MEDS: Magnesium Chloride 64 MG Delay Rel.Tablet 128 MG PO ×2 (06:28→18:03)
[2020-08-10] MEDS: Furosemide 20 MG Tablet PO ×2 (06:28→18:03)
[2020-08-10] MEDS: APIXABAN 5 MG TABLET PO ×2 (06:29→18:02)
[2020-08-10] MEDS: Hydrocortisone 2.5% Crm 1 APPLIC TOPICAL (06:30)
[2020-08-10] MEDS: Ammonium Lactate 225 gm Bottle 1 APPLIC TOPICAL (06:33)
[2020-08-10] MEDS: Menthol/Lanolin/Calamine/Znox 113 GM Tube 1 APPLIC TOPICAL ×2 (06:34→21:52)
[2020-08-10 06:47] VITALS: O2SAT 97
[2020-08-10] MEDS: Iron Polysaccharide Complex 150 MG CAPSULE PO (08:25)
[2020-08-10] MEDS: Carvedilol 6.25 MG Tablet PO ×2 (08:25→18:02)
[2020-08-10] MEDS: Allopurinol 100 MG Tablet PO (08:25)
[2020-08-10] MEDS: Nystatin Powder 15gm Bottle 1 APPLIC TOPICAL ×2 (08:26→18:05)
[2020-08-10 10:00] VITALS: PULSE 61; RESP 16; O2SAT 97
[2020-08-10 14:12] VITALS: BP 107/59; PULSE 60; RESP 15; TEMP 36.4; O2SAT 97
[2020-08-10] MEDS: Sertraline 100 MG Tablet 150 MG PO (21:50)
[2020-08-10] MEDS: Nortriptyline 10 MG Capsule 30 MG PO (21:51)
[2020-08-10] MEDS: Atorvastatin Calcium 10 MG Tablet PO (21:51)
[2020-08-11 05:00] VITALS: BP 123/66; PULSE 59; RESP 16; TEMP 36.8; O2SAT 97
[2020-08-11] MEDS: Lactulose 20 GM/30 ML UDC PO ×2 (06:55→17:38)
[2020-08-11] MEDS: Pantoprazole Sodium 40 MG Tablet PO (06:56)
[2020-08-11] MEDS: Losartan Potassium 50 MG Tablet PO (06:56)
[2020-08-11] MEDS: APIXABAN 5 MG TABLET PO ×2 (06:56→17:43)
[2020-08-11] MEDS: Magnesium Chloride 64 MG Delay Rel.Tablet 128 MG PO ×2 (06:56→17:39)
[2020-08-11] MEDS: Furosemide 20 MG Tablet PO ×2 (06:57→17:39)
[2020-08-11] MEDS: Ammonium Lactate 225 gm Bottle 1 APPLIC TOPICAL (06:57)
[2020-08-11] MEDS: Nystatin Powder 15gm Bottle 1 APPLIC TOPICAL ×2 (06:58→17:44)
[2020-08-11] MEDS: Hydrocortisone 2.5% Crm 1 APPLIC TOPICAL ×2 (06:59→17:40)
[2020-08-11] MEDS: Menthol/Lanolin/Calamine/Znox 113 GM Tube 1 APPLIC TOPICAL ×2 (06:59→21:58)
[2020-08-11] MEDS: Carvedilol 6.25 MG Tablet PO ×2 (09:01→17:39)
[2020-08-11] MEDS: Iron Polysaccharide Complex 150 MG CAPSULE PO (09:01)
[2020-08-11] MEDS: Allopurinol 100 MG Tablet PO (09:02)
[2020-08-11 14:11] VITALS: BP 103/50; PULSE 67; RESP 16; TEMP 36.5; O2SAT 94
[2020-08-11] MEDS: Senna/Docusate Sodium 1 Tablet 2 TABLET PO (17:38)
[2020-08-11] MEDS: Nortriptyline 10 MG Capsule 30 MG PO (21:59)
[2020-08-11] MEDS: Atorvastatin Calcium 10 MG Tablet PO (22:00)
[2020-08-11] MEDS: Sertraline 100 MG Tablet 150 MG PO (22:00)
[2020-08-12] MEDS: Pantoprazole Sodium 40 MG Tablet PO (04:58)
[2020-08-12] MEDS: Lactulose 20 GM/30 ML UDC PO ×2 (04:58→18:42)
[2020-08-12] MEDS: Senna/Docusate Sodium 1 Tablet 2 TABLET PO ×2 (04:58→18:45)
[2020-08-12] MEDS: Polyethylene Glycol 3350 17 GM PACKET PO (04:58)
[2020-08-12] MEDS: Losartan Potassium 50 MG Tablet PO (04:59)
[2020-08-12] MEDS: APIXABAN 5 MG TABLET PO ×2 (04:59→18:43)
[2020-08-12] MEDS: Furosemide 20 MG Tablet PO ×2 (04:59→18:44)
[2020-08-12] MEDS: Magnesium Chloride 64 MG Delay Rel.Tablet 128 MG PO ×2 (04:59→18:44)
[2020-08-12] MEDS: Hydrocortisone 2.5% Crm 1 APPLIC TOPICAL (04:59)
[2020-08-12 05:00] VITALS: BP 121/67; PULSE 64; RESP 18; TEMP 36.6; O2SAT 96
[2020-08-12] MEDS: Ammonium Lactate 225 gm Bottle 1 APPLIC TOPICAL (05:00)
[2020-08-12] MEDS: Menthol/Lanolin/Calamine/Znox 113 GM Tube 1 APPLIC TOPICAL ×2 (05:06→20:17)
[2020-08-12] MEDS: Nystatin Powder 15gm Bottle 1 APPLIC TOPICAL ×2 (05:07→18:47)
[2020-08-12] MEDS: Carvedilol 6.25 MG Tablet PO ×2 (07:47→18:48)
[2020-08-12] MEDS: Iron Polysaccharide Complex 150 MG CAPSULE PO (07:47)
[2020-08-12] MEDS: Allopurinol 100 MG Tablet PO (07:47)
[2020-08-12 08:47] VITALS: PULSE 74; RESP 16; O2SAT 97
[2020-08-12 14:19] VITALS: BP 99/62; PULSE 71; RESP 18; TEMP 36.6; O2SAT 97
[2020-08-12 18:49] VITALS: BP 116/58; PULSE 63
[2020-08-12] MEDS: Sertraline 100 MG Tablet 150 MG PO (20:18)
[2020-08-12] MEDS: Atorvastatin Calcium 10 MG Tablet PO (20:18)
[2020-08-12] MEDS: Nortriptyline 10 MG Capsule 30 MG PO (20:19)
[2020-08-13 02:14] VITALS: BP 129/69; PULSE 74; RESP 18; TEMP 36.8; O2SAT 93
[2020-08-13] MEDS: Losartan Potassium 50 MG Tablet PO (06:31)
[2020-08-13] MEDS: Furosemide 20 MG Tablet PO ×2 (06:31→17:18)
[2020-08-13] MEDS: Pantoprazole Sodium 40 MG Tablet PO (06:31)
[2020-08-13] MEDS: Magnesium Chloride 64 MG Delay Rel.Tablet 128 MG PO ×2 (06:31→17:19)
[2020-08-13] MEDS: APIXABAN 5 MG TABLET PO ×2 (06:31→17:19)
[2020-08-13 08:06] VITALS: O2SAT 93
[2020-08-13] MEDS: Carvedilol 6.25 MG Tablet PO ×2 (08:34→17:18)
[2020-08-13] MEDS: Iron Polysaccharide Complex 150 MG CAPSULE PO (08:34)
[2020-08-13] MEDS: Allopurinol 100 MG Tablet PO (08:34)
[2020-08-13] MEDS: Ammonium Lactate 225 gm Bottle 1 APPLIC TOPICAL (08:38)
[2020-08-13] MEDS: Nystatin Powder 15gm Bottle 1 APPLIC TOPICAL ×2 (08:38→17:20)
[2020-08-13] MEDS: Menthol/Lanolin/Calamine/Znox 113 GM Tube 1 APPLIC TOPICAL ×2 (08:39→21:56)
[2020-08-13 08:40] VITALS: BP 111/59; PULSE 85
--- NOTE | 2020-08-13 09:46 | NURSING ---
pt incontinent of stool, refusing to wear a brief. Spoke with pt about wearing disposable underwear with brief to make it more comfortable. pt agreeable to this.
[2020-08-13 14:12] VITALS: BP 93/45; PULSE 69; RESP 16; TEMP 36.4; O2SAT 93
--- NOTE | 2020-08-13 15:34 | NURSING ---
PT STATED SHE DID NOT WANT ANY ONE CALLED
--- NOTE | 2020-08-13 15:45 | CASEMGMT ---
Social Work Met with pt to complete MDS assessment. Pt requested to have code status changed to full code. Notified nursing. NYDIA BaronW
[2020-08-13 16:41] VITALS: BP 112/57; PULSE 75
[2020-08-13] MEDS: Hydrocortisone 2.5% Crm 1 APPLIC TOPICAL (17:15)
[2020-08-13 21:41] VITALS: PULSE 67; RESP 16; O2SAT 96
[2020-08-13] MEDS: Atorvastatin Calcium 10 MG Tablet PO (21:47)
[2020-08-13] MEDS: Sertraline 100 MG Tablet 150 MG PO (21:47)
[2020-08-13] MEDS: Nortriptyline 10 MG Capsule 30 MG PO (21:47)
[2020-08-14] MEDS: Pantoprazole Sodium 40 MG Tablet PO (04:58)
[2020-08-14] MEDS: Magnesium Chloride 64 MG Delay Rel.Tablet 128 MG PO ×2 (04:58→17:20)
[2020-08-14] MEDS: Losartan Potassium 50 MG Tablet PO (04:58)
[2020-08-14] MEDS: APIXABAN 5 MG TABLET PO ×2 (04:58→17:20)
[2020-08-14] MEDS: Furosemide 20 MG Tablet PO ×2 (04:58→17:20)
[2020-08-14] MEDS: Hydrocortisone 2.5% Crm 1 APPLIC TOPICAL ×2 (04:59→17:16)
[2020-08-14 05:00] VITALS: BP 133/63; PULSE 76; RESP 16; TEMP 36.6; O2SAT 94
[2020-08-14] MEDS: Ammonium Lactate 225 gm Bottle 1 APPLIC TOPICAL (05:00)
[2020-08-14] MEDS: Nystatin Powder 15gm Bottle 1 APPLIC TOPICAL ×2 (05:00→17:25)
[2020-08-14] MEDS: Menthol/Lanolin/Calamine/Znox 113 GM Tube 1 APPLIC TOPICAL ×2 (05:00→21:14)
--- NOTE | 2020-08-14 05:55 | RAD_ITS ---
STUDY: X-RAY - ABDOMEN/PELVIS REASON FOR EXAM: Female, 69 years old. CONSTIPATION TECHNIQUE: Single AP view of the abdomen / pelvis. COMPARISON: Comparison is made with prior study dated 08/08/2020. FINDINGS: Blunting of the left costophrenic angle. There is an abundance of fecal material throughout the colon. The patient is status post cholecystectomy. 3 rounded hypodensities are seen overlying the left midabdomen most likely representing pills. Normal soft tissue structures. There are diffuse degenerative changes of the visualized lumbar spine. RAD/Abdomen Single View IMPRESSION: Large amount of fecal material is seen in the colon. Electronically Signed: óLpez Kenney, at 9:23 EDT , Service support ,
[2020-08-14 06:06] LABS: Absolute Lymphocyte Count 0.89 X10^3/uL (0.83-4.51); Basophil# 0.06 X10^3/uL; Basophil% 0.7 % (0-1); Eosinophils% 9.7 % (0-5); Hematocrit 28.6 % (37-47); Hemoglobin 8.1 g/dL (12.0-15.0); Lymphocyte # 0.89 X10^3/ul (4.0); Lymphocyte % 10.8 % (19-41); Mean Corp Hgb Conc 28.3 g/dL (32-36); Mean Corpuscular Hgb 24.5 pg (27.0-32.0); Mean Corpuscular Volume 86.4 fL (81-99); Mean Platelet Vol. 9.8 fl (6.2-12.0); Monocyte# 0.47 X10^3/uL; Monocyte% 5.7 % (0-10); NRBC Flagged by Analyzer 0 % (0-5); Neutrophil # 6.02 X10^3/uL (2.7-7.7); Neutrophil % 72.9 % (47-70); Platelet Count 310 K/mm3 (150-450); RBC Distribution Width CV 18.6 % (11.6-14.6); RBC Distribution Width SD 58.9 fl (35.1-43.9); Red Blood Count 3.31 M/mm3 (4.2-5.4); White Blood Count 8.3 K/mm3 (4.4-11.0)
[2020-08-14 06:29] LABS: Anion Gap 7 (5-15); BUN 22 mg/dL (7-18); BUN/Creat Ratio 13.2 RATIO (10-20); Calcium,Total 8.7 mg/dL (8.5-10.1); Chloride 104 mmol/L (98-107); Creatinine, Serum 1.67 mg/dL (0.55-1.02); EST Glomerular Filtration Rate 32 mL/min (>60); Est Glom Filt Rate - Afr Amer 39 mL/min (>60); Estimated Creatinine Clearance 26.67 ml/min; Glucose 87 mg/dL (74-106); Potassium 3.8 mmol/L (3.5-5.1); Sodium Level 137 mmol/L (136-145)
[2020-08-14] MEDS: Iron Polysaccharide Complex 150 MG CAPSULE PO (08:36)
[2020-08-14] MEDS: Allopurinol 100 MG Tablet PO (08:36)
[2020-08-14] MEDS: Carvedilol 6.25 MG Tablet PO ×2 (08:36→17:21)
[2020-08-14 08:39] VITALS: BP 109/58; PULSE 60
[2020-08-14] MEDS: Tuberculin,Purif.prot.deriv. 50 TU/ML Vial 5 ML ID (09:56)
--- NOTE | 2020-08-14 10:11 | NURSING ---
PT STATED SHE DIDNT WANT ANY ONE CALLED FOR UPDATES.
[2020-08-14 13:38] VITALS: BP 109/65; PULSE 68; RESP 16; TEMP 36.4; O2SAT 96
[2020-08-14] MEDS: Lactulose 20 GM/30 ML UDC 200 GM RECTAL (14:39)
--- NOTE | 2020-08-14 15:53 | NURSING ---
lactulose enema given. pt tolerated well. no results.
[2020-08-14] MEDS: Senna/Docusate Sodium 1 Tablet 2 TABLET PO (17:18)
[2020-08-14] MEDS: Atorvastatin Calcium 10 MG Tablet PO (21:16)
[2020-08-14] MEDS: Sertraline 100 MG Tablet 150 MG PO (21:19)
[2020-08-14] MEDS: Nortriptyline 10 MG Capsule 30 MG PO (21:23)
[2020-08-15] MEDS: Senna/Docusate Sodium 1 Tablet 2 TABLET PO ×2 (04:59→18:01)
[2020-08-15] MEDS: Furosemide 20 MG Tablet PO ×2 (04:59→18:00)
[2020-08-15] MEDS: Magnesium Chloride 64 MG Delay Rel.Tablet 128 MG PO ×2 (04:59→18:01)
[2020-08-15] MEDS: APIXABAN 5 MG TABLET PO ×2 (04:59→18:00)
[2020-08-15] MEDS: Losartan Potassium 50 MG Tablet PO (04:59)
[2020-08-15 05:00] VITALS: BP 133/69; PULSE 69; RESP 18; TEMP 36.8; O2SAT 95
[2020-08-15] MEDS: Menthol/Lanolin/Calamine/Znox 113 GM Tube 1 APPLIC TOPICAL ×2 (05:00→21:44)
[2020-08-15] MEDS: Pantoprazole Sodium 40 MG Tablet PO (05:00)
[2020-08-15] MEDS: Hydrocortisone 2.5% Crm 1 APPLIC TOPICAL (05:00)
[2020-08-15] MEDS: Nystatin Powder 15gm Bottle 1 APPLIC TOPICAL ×2 (05:01→18:01)
[2020-08-15] MEDS: Ammonium Lactate 225 gm Bottle 1 APPLIC TOPICAL (05:04)
[2020-08-15] MEDS: Iron Polysaccharide Complex 150 MG CAPSULE PO (08:31)
[2020-08-15] MEDS: Allopurinol 100 MG Tablet PO (08:31)
[2020-08-15] MEDS: Carvedilol 6.25 MG Tablet PO ×2 (08:31→18:00)
[2020-08-15 09:11] VITALS: PULSE 69; RESP 18; O2SAT 95
--- NOTE | 2020-08-15 10:30 | CASEMGMT ---
Social Work IDT met with patient for care plan meeting. Discussed patient's progress in therapy. Pt is ambulating 20 ft with FWW at CGA, transfers CGA with FWW, Елена for bed mobility, sup. for grooming. Pt is CGA for UE bathing, modA for LE bathing for thoroughness, Елена for UE dressing, but only wearing hospital, maxA for LE dressing for socks, sup. for toileting hygiene, Елена for toilet tx. Pt is now able to walk into restroom for toileting. Pt did express having difficult swallowing. ST consulted. Pt is out of isolation 08/19, new O2 but is on RA currently. Explained Medicare benefit. The goal is for pt to return home alone, 5 steps to enter. Will continue to follow. NYDIA Baron
[2020-08-15 13:32] VITALS: BP 102/54; PULSE 62; RESP 18; TEMP 36.1; O2SAT 96
--- NOTE | 2020-08-15 14:39 | MDS.RN ---
Information for the mds was obtained from review of the clinical record, interview of resident, staff, and direct observation of resident's care.
[2020-08-15] MEDS: Sertraline 100 MG Tablet 150 MG PO (21:41)
[2020-08-15] MEDS: Nortriptyline 10 MG Capsule 30 MG PO (21:41)
[2020-08-15] MEDS: Atorvastatin Calcium 10 MG Tablet PO (21:42)
[2020-08-16 05:00] VITALS: BP 139/81; PULSE 64; RESP 16; TEMP 36.9; O2SAT 94
[2020-08-16] MEDS: Hydrocortisone 2.5% Crm 1 APPLIC TOPICAL ×2 (05:51→17:21)
[2020-08-16] MEDS: Magnesium Chloride 64 MG Delay Rel.Tablet 128 MG PO ×2 (05:51→17:17)
[2020-08-16] MEDS: Pantoprazole Sodium 40 MG Tablet PO (05:52)
[2020-08-16] MEDS: Furosemide 20 MG Tablet PO ×2 (05:52→17:17)
[2020-08-16] MEDS: APIXABAN 5 MG TABLET PO ×2 (05:52→17:16)
[2020-08-16] MEDS: Losartan Potassium 50 MG Tablet PO (05:52)
[2020-08-16] MEDS: Senna/Docusate Sodium 1 Tablet 2 TABLET PO (05:52)
[2020-08-16] MEDS: Menthol/Lanolin/Calamine/Znox 113 GM Tube 1 APPLIC TOPICAL ×2 (05:53→21:47)
[2020-08-16] MEDS: Nystatin Powder 15gm Bottle 1 APPLIC TOPICAL ×2 (05:54→17:17)
[2020-08-16] MEDS: Ammonium Lactate 225 gm Bottle 1 APPLIC TOPICAL (05:55)
[2020-08-16 06:06] LABS: Hematocrit 27.1 % (37-47)
--- NOTE | 2020-08-16 07:33 | NURSING ---
Patient c/o more frequency with urine and hematuria color. Patient states she has no burning with urine but she gets UTI. Put on doctor list.
[2020-08-16] MEDS: Iron Polysaccharide Complex 150 MG CAPSULE PO (08:16)
[2020-08-16] MEDS: Allopurinol 100 MG Tablet PO (08:16)
[2020-08-16] MEDS: Carvedilol 6.25 MG Tablet PO ×2 (08:16→17:17)
[2020-08-16 08:18] VITALS: BP 144/76; PULSE 67
[2020-08-16 12:52] LABS: Mucous, Urine 0 SEEN /hpf (<or=2+); Squamous Epithelial Cells - UA 0 SEEN /hpf (5-10)
[2020-08-16 12:59] LABS: Color, Urine Yellow (Yellow); Glucose, Dipstick Normal (Normal); Ketone-Dipstick Negative (Negative); Leukocyte Esterase-Dipstick 500 /ul (Negative); Nitrite-Dipstick Negative (Negative); Occult Blood-Urine 250 /ul (Negative); Protein-Dipstick 100 mg/dl (Negative); Specific Gravity, Urine 1.015 (1.002-1.030); Urine Bilirubin Dipstick Negative (Negative); Urine Clarity Cloudy (Clear); Urine Urobilinogen Normal (Normal)
[2020-08-16 13:11] LABS: Red Blood Cells-Urine 5-10 SEEN /hpf (0-5); White Blood Cells 10-25 SEEN /hpf (0-5)
[2020-08-16 13:12] LABS: Bacteria 1+ /hpf (None Seen)
[2020-08-16 13:13] LABS: Amorphous Sediment 1+
[2020-08-16 13:22] VITALS: BP 121/65; PULSE 69; RESP 16; TEMP 36.7; O2SAT 97
--- NOTE | 2020-08-16 13:27 | NURSING ---
pt stated she didnt want anyone called for updates.
[2020-08-16] MEDS: Ciprofloxacin 500 MG Tablet PO (17:15)
[2020-08-16] MEDS: Sertraline 100 MG Tablet 150 MG PO (21:42)
[2020-08-16] MEDS: Nortriptyline 10 MG Capsule 30 MG PO (21:43)
[2020-08-16] MEDS: Atorvastatin Calcium 10 MG Tablet PO (21:43)
[2020-08-16 21:50] VITALS: PULSE 70; RESP 16; O2SAT 97
[2020-08-17 05:00] VITALS: BP 104/66; PULSE 81; RESP 16; TEMP 37; O2SAT 96
[2020-08-17] MEDS: Pantoprazole Sodium 40 MG Tablet PO (06:07)
[2020-08-17] MEDS: Furosemide 20 MG Tablet PO ×2 (06:07→17:04)
[2020-08-17] MEDS: Ciprofloxacin 500 MG Tablet PO ×2 (06:07→17:04)
[2020-08-17] MEDS: APIXABAN 5 MG TABLET PO ×2 (06:07→17:05)
[2020-08-17] MEDS: Losartan Potassium 50 MG Tablet PO (06:08)
[2020-08-17] MEDS: Magnesium Chloride 64 MG Delay Rel.Tablet 128 MG PO ×2 (06:08→17:05)
[2020-08-17] MEDS: Senna/Docusate Sodium 1 Tablet 2 TABLET PO ×2 (06:08→17:04)
[2020-08-17] MEDS: Ammonium Lactate 225 gm Bottle 1 APPLIC TOPICAL (06:10)
[2020-08-17] MEDS: Hydrocortisone 2.5% Crm 1 APPLIC TOPICAL (06:10)
[2020-08-17] MEDS: Nystatin Powder 15gm Bottle 1 APPLIC TOPICAL ×2 (06:11→17:06)
[2020-08-17] MEDS: Menthol/Lanolin/Calamine/Znox 113 GM Tube 1 APPLIC TOPICAL ×2 (06:11→22:11)
[2020-08-17] MEDS: Allopurinol 100 MG Tablet PO (08:19)
[2020-08-17] MEDS: Iron Polysaccharide Complex 150 MG CAPSULE PO (08:19)
[2020-08-17] MEDS: Carvedilol 6.25 MG Tablet PO ×2 (08:20→17:05)
[2020-08-17 08:59] VITALS: PULSE 57; RESP 16; O2SAT 94
--- NOTE | 2020-08-17 09:58 | NURSING ---
wound photo: jonathan cleft
--- NOTE | 2020-08-17 14:28 | NURSING ---
wound nurse in today to look at moisture induced wound on bottom, would like to keep current tx of applying alfredo to areas
[2020-08-17 14:35] VITALS: BP 98/55; PULSE 66; RESP 16; TEMP 36.8; O2SAT 95
--- NOTE | 2020-08-17 15:34 | CASEMGMT ---
Social Work Completed advanced directives with pt. Pt named nephew, Kavon Mendes, as HCPOA. Copies placed on chart. Heather Lugo, CHILDCARE WORKER MUSIC AUTOGRAPHER
[2020-08-17] MEDS: Atorvastatin Calcium 10 MG Tablet PO (22:12)
[2020-08-17] MEDS: Nortriptyline 10 MG Capsule 30 MG PO (22:13)
[2020-08-17] MEDS: Sertraline 100 MG Tablet 150 MG PO (22:15)
[2020-08-18 05:00] VITALS: BP 130/71; PULSE 64; RESP 18; TEMP 36.6; O2SAT 96
[2020-08-18] MEDS: Menthol/Lanolin/Calamine/Znox 113 GM Tube 1 APPLIC TOPICAL ×2 (05:06→21:52)
[2020-08-18] MEDS: Senna/Docusate Sodium 1 Tablet 2 TABLET PO ×2 (05:07→17:43)
[2020-08-18] MEDS: Pantoprazole Sodium 40 MG Tablet PO (05:07)
[2020-08-18] MEDS: Ciprofloxacin 500 MG Tablet PO ×2 (05:07→17:43)
[2020-08-18] MEDS: Magnesium Chloride 64 MG Delay Rel.Tablet 128 MG PO ×2 (05:08→17:43)
[2020-08-18] MEDS: Furosemide 20 MG Tablet PO ×2 (05:08→17:43)
[2020-08-18] MEDS: APIXABAN 5 MG TABLET PO ×2 (05:08→17:43)
[2020-08-18] MEDS: Losartan Potassium 50 MG Tablet PO (05:08)
[2020-08-18] MEDS: Nystatin Powder 15gm Bottle 1 APPLIC TOPICAL ×2 (05:09→17:44)
[2020-08-18] MEDS: Hydrocortisone 2.5% Crm 1 APPLIC TOPICAL ×2 (05:09→21:51)
[2020-08-18] MEDS: Ammonium Lactate 225 gm Bottle 1 APPLIC TOPICAL (05:09)
[2020-08-18] MEDS: Iron Polysaccharide Complex 150 MG CAPSULE PO (08:59)
[2020-08-18] MEDS: Allopurinol 100 MG Tablet PO (09:00)
[2020-08-18] MEDS: Carvedilol 6.25 MG Tablet PO ×2 (09:00→17:43)
--- NOTE | 2020-08-18 12:14 | NURSING ---
Notified resident and nephewSergio of COVID Outbreak status.
[2020-08-18 14:31] VITALS: BP 115/62; PULSE 76; RESP 15; TEMP 36.6; O2SAT 95
[2020-08-18] MEDS: Atorvastatin Calcium 10 MG Tablet PO (21:51)
[2020-08-18] MEDS: Nortriptyline 10 MG Capsule 30 MG PO (21:51)
[2020-08-18] MEDS: Sertraline 100 MG Tablet 150 MG PO (21:53)
[2020-08-19 05:00] VITALS: BP 135/70; PULSE 68; RESP 18; TEMP 36.8; O2SAT 95
[2020-08-19] MEDS: Magnesium Chloride 64 MG Delay Rel.Tablet 128 MG PO ×2 (06:08→17:28)
[2020-08-19] MEDS: APIXABAN 5 MG TABLET PO ×2 (06:08→17:27)
[2020-08-19] MEDS: Senna/Docusate Sodium 1 Tablet 2 TABLET PO ×2 (06:08→17:28)
[2020-08-19] MEDS: Ciprofloxacin 500 MG Tablet PO ×2 (06:08→17:28)
[2020-08-19] MEDS: Pantoprazole Sodium 40 MG Tablet PO (06:09)
[2020-08-19] MEDS: Ammonium Lactate 225 gm Bottle 1 APPLIC TOPICAL (06:09)
[2020-08-19] MEDS: Furosemide 20 MG Tablet PO ×2 (06:09→17:27)
[2020-08-19] MEDS: Losartan Potassium 50 MG Tablet PO (06:10)
[2020-08-19] MEDS: Hydrocortisone 2.5% Crm 1 APPLIC TOPICAL ×2 (06:10→22:11)
[2020-08-19] MEDS: Nystatin Powder 15gm Bottle 1 APPLIC TOPICAL ×2 (06:12→17:29)
[2020-08-19] MEDS: Menthol/Lanolin/Calamine/Znox 113 GM Tube 1 APPLIC TOPICAL ×2 (06:12→22:12)
[2020-08-19] MEDS: Iron Polysaccharide Complex 150 MG CAPSULE PO (08:11)
[2020-08-19] MEDS: Carvedilol 6.25 MG Tablet PO ×2 (08:12→17:28)
[2020-08-19] MEDS: Allopurinol 100 MG Tablet PO (08:12)
[2020-08-19 10:00] VITALS: PULSE 68; RESP 16; O2SAT 96
[2020-08-19 13:34] VITALS: BP 108/53; PULSE 77; RESP 16; TEMP 36.4; O2SAT 97
[2020-08-19] MEDS: Sertraline 100 MG Tablet 150 MG PO (22:11)
[2020-08-19] MEDS: Nortriptyline 10 MG Capsule 30 MG PO (22:11)
[2020-08-19] MEDS: Atorvastatin Calcium 10 MG Tablet PO (22:11)
[2020-08-20] MEDS: APIXABAN 5 MG TABLET PO ×2 (05:25→17:29)
[2020-08-20] MEDS: Ciprofloxacin 500 MG Tablet PO ×2 (05:25→17:28)
[2020-08-20] MEDS: Losartan Potassium 50 MG Tablet PO (05:25)
[2020-08-20] MEDS: Magnesium Chloride 64 MG Delay Rel.Tablet 128 MG PO ×2 (05:25→17:27)
[2020-08-20] MEDS: Furosemide 20 MG Tablet PO ×2 (05:25→17:29)
[2020-08-20] MEDS: Pantoprazole Sodium 40 MG Tablet PO (05:25)
[2020-08-20] MEDS: Menthol/Lanolin/Calamine/Znox 113 GM Tube 1 APPLIC TOPICAL ×2 (05:28→20:56)
[2020-08-20 05:29] VITALS: BP 119/56; PULSE 71; RESP 16; TEMP 36.8; O2SAT 95
[2020-08-20] MEDS: Nystatin Powder 15gm Bottle 1 APPLIC TOPICAL (08:38)
[2020-08-20] MEDS: Allopurinol 100 MG Tablet PO (08:39)
[2020-08-20] MEDS: Iron Polysaccharide Complex 150 MG CAPSULE PO (08:39)
[2020-08-20] MEDS: Carvedilol 6.25 MG Tablet PO ×2 (08:42→17:28)
[2020-08-20 14:11] VITALS: BP 115/63; PULSE 77; RESP 18; TEMP 36.7; O2SAT 94
--- NOTE | 2020-08-20 14:21 | NURSING ---
pt stated she did not want any one called.
--- NOTE | 2020-08-20 14:23 | NURSING ---
PER THERAPY,PT IS UP AB NGA BUT STILL NEEDS HELP WITH GETTING HER FEET IN TO BED.
--- NOTE | 2020-08-20 17:22 | NURSING ---
Left message for Sergio cronin, to call.
--- NOTE | 2020-08-20 18:09 | NURSING ---
Son, Sergio, notified of negative COVID results.
[2020-08-20] MEDS: Hydrocortisone 2.5% Crm 1 APPLIC TOPICAL (20:53)
[2020-08-20] MEDS: Sertraline 100 MG Tablet 150 MG PO (20:54)
[2020-08-20] MEDS: Atorvastatin Calcium 10 MG Tablet PO (20:54)
[2020-08-20] MEDS: Nortriptyline 10 MG Capsule 30 MG PO (20:54)
[2020-08-20 21:03] VITALS: PULSE 68; RESP 16; O2SAT 98
--- NOTE | 2020-08-20 21:03 | NURSING ---
Addendum entered by Amy Sullivan 08/21/20 06:59: Per Shanell, Patients quarantine does not start over. Patient is now happy and no complaints. Original Note: Patient asked this Nurse why she was never told that she is under 14 day Quarantine again. Patient stated, Shanell called and left a message with my Nephew and she never even told me. I found out when he called me. Explained the quarantine to patient. Patient continues to be upset that when Shanell came into room that she didn't take the time to explain it to her. Email sent to Shanell.
[2020-08-21] MEDS: Furosemide 20 MG Tablet PO ×2 (05:50→17:47)
[2020-08-21] MEDS: Magnesium Chloride 64 MG Delay Rel.Tablet 128 MG PO ×2 (05:50→17:47)
[2020-08-21] MEDS: Losartan Potassium 50 MG Tablet PO (05:50)
[2020-08-21] MEDS: Ciprofloxacin 500 MG Tablet PO ×2 (05:50→17:46)
[2020-08-21] MEDS: APIXABAN 5 MG TABLET PO ×2 (05:50→17:46)
[2020-08-21] MEDS: Pantoprazole Sodium 40 MG Tablet PO (05:51)
[2020-08-21] MEDS: Ammonium Lactate 225 gm Bottle 1 APPLIC TOPICAL (05:52)
[2020-08-21] MEDS: Hydrocortisone 2.5% Crm 1 APPLIC TOPICAL ×2 (05:53→21:48)
[2020-08-21] MEDS: Nystatin Powder 15gm Bottle 1 APPLIC TOPICAL ×2 (05:53→21:46)
[2020-08-21] MEDS: Menthol/Lanolin/Calamine/Znox 113 GM Tube 1 APPLIC TOPICAL ×2 (05:53→21:47)
[2020-08-21 05:54] VITALS: BP 135/65; PULSE 65; RESP 18; TEMP 36.6; O2SAT 95
[2020-08-21 05:57] LABS: Absolute Lymphocyte Count 0.84 X10^3/uL (0.83-4.51); Absolute Neutrophil Count 4.9 X10^3/uL (2.0-7.7); Basophil# 0.02 X10^3/uL; Basophil% 0.3 % (0-1); Eosinophil# 0.55 X10^3/uL; Eosinophils% 8.1 % (0-5); Hemoglobin 8.2 g/dL (12.0-15.0); Lymphocyte # 0.84 X10^3/ul (4.0); Lymphocyte % 12.4 % (19-41); Mean Corp Hgb Conc 29.3 g/dL (32-36); Mean Corpuscular Hgb 25.4 pg (27.0-32.0); Mean Corpuscular Volume 86.7 fL (81-99); Mean Platelet Vol. 10.3 fl (6.2-12.0); Monocyte# 0.41 X10^3/uL; Monocyte% 6.1 % (0-10); NRBC Flagged by Analyzer 0 % (0-5); Neutrophil % 72.7 % (47-70); Platelet Count 294 K/mm3 (150-450); RBC Distribution Width CV 19.5 % (11.6-14.6); RBC Distribution Width SD 61.6 fl (35.1-43.9); Red Blood Count 3.23 M/mm3 (4.2-5.4); White Blood Count 6.8 K/mm3 (4.4-11.0)
[2020-08-21 06:36] LABS: Anion Gap 7 (5-15); BUN 22 mg/dL (7-18); BUN/Creat Ratio 16.1 RATIO (10-20); Calcium,Total 9.1 mg/dL (8.5-10.1); Chloride 109 mmol/L (98-107); Creatinine, Serum 1.37 mg/dL (0.55-1.02); EST Glomerular Filtration Rate 41 mL/min (>60); Est Glom Filt Rate - Afr Amer 49 mL/min (>60); Estimated Creatinine Clearance 32.51 ml/min; Glucose 90 mg/dL (74-106); Potassium 3.3 mmol/L (3.5-5.1); Sodium Level 141 mmol/L (136-145)
[2020-08-21 08:01] VITALS: BP 130/72; PULSE 73
[2020-08-21] MEDS: Iron Polysaccharide Complex 150 MG CAPSULE PO (08:03)
[2020-08-21] MEDS: Allopurinol 100 MG Tablet PO (08:03)
[2020-08-21] MEDS: Carvedilol 6.25 MG Tablet PO ×2 (08:03→17:46)
[2020-08-21 10:35] VITALS: PULSE 74; RESP 18; O2SAT 94
--- NOTE | 2020-08-21 12:40 | RAD_ITS ---
STUDY: X-RAY - ABDOMEN/PELVIS REASON FOR EXAM: Female, 69 years old. CONSTIPATION TECHNIQUE: AP supine and upright views of the abdomen and pelvis. COMPARISON: 08/14/20. FINDINGS: Normal visualized lung bases. There is an unremarkable bowel gas pattern. There is no demonstrated free abdominal air. Interval increase in stool burden throughout the colon. Right upper quadrant surgical clips Normal soft tissue structures. There are diffuse degenerative changes of the visualized lumbar spine. RAD/Abdomen Single View IMPRESSION: Moderate stool burden throughout the colon, increased from prior. Electronically Signed: Hany rKuse, at 20:20 EDT Tel , Service support ,
[2020-08-21 14:22] VITALS: BP 117/69; PULSE 61; RESP 14; TEMP 36.3; O2SAT 98
--- NOTE | 2020-08-21 15:41 | NURSING ---
Resident and nephewSergio, notified of staff member positive for COVID-19.
--- NOTE | 2020-08-21 15:58 | NURSING ---
PT STATED SHE DIDNT NEED ANY ONE CALLED FOR UPDATES
--- NOTE | 2020-08-21 16:14 | CASEMGMT ---
Social Work Spoke with pt about IDT issuing DC date 08/25. Pt agreeable and agreeable to [facility]. Referral made for PT/OT/SN. Pt requesting FWW. Referral made to [facility] [place]. Family to transport pt. Plan: DC home alone 08/25 with [facility] PT/OT/SN, [employer] - FWW Heather Lugo, RESIDENTIAL SPECIALIST BODY JOINER
--- NOTE | 2020-08-21 21:00 | DCINST_ITS ---
- Discharge Diagnoses Current Active Problems: Current Active and Chronic Problems (Last Updated 07/28/20 @ 13:05 by Neda Hendrickson) Debility (Acute) Septic shock (Acute) Pneumonia (Acute) Acute on chronic systolic congestive heart failure (Acute) Acute kidney injury (Acute) COPD (chronic obstructive pulmonary disease) (Chronic) Body mass index (BMI) of 39.0 to 39.9 in adult (Chronic) Complete heart block (Chronic) Atrial fibrillation (Chronic) Gout (Chronic) GERD (gastroesophageal reflux disease) (Chronic) You will use the following diet at home:: No restrictions, Regular Your food should be the consistency of: Regular Your liquids should be the consistency of: Regular/Thin Discharge Activity: Return to Normal Activity, May Shower, Use Walker Weight Bearing Status: Weight bearing as tolerated Call your doctor if you observe: Fever of 101 or Higher, Inability to urinate, Inability to have a bowel movement, Shortness of breath, Chest pain, Uncontrolled pain Allergies/Adverse Reactions: Allergies amlodipine besylate [From Norvasc] Allergy (Verified 05/10/20 08:53) Other cough amoxicillin [From Augmentin] Allergy (Verified 08/06/20 15:19) PT UNSURE OF REACTION clavulanic acid [From Augmentin] Allergy (Verified 08/06/20 15:19) PT UNSURE OF REACTION codeine Allergy (Verified 05/10/20 08:53) Nausea/Vom/Diarrhea ibuprofen Allergy (Verified 08/06/20 15:19) PT UNSURE OF REACTION Iodinated Contrast Media [Iodinated Contrast Media - IV Dye] Allergy (Verified 05/10/20 08:53) Hives Iodine and Iodide Containing Produc Allergy (Verified 08/06/20 15:19) Rash rofecoxib [From Vioxx] Allergy (Verified 08/06/20 15:19) PT UNSURE OF REACTION hydrochlorothiazide Adverse Reaction (Verified 05/10/20 08:53) hypokalemia envelope adhesive Adverse Reaction (Uncoded 05/10/20 08:53) Diarrhea Medications to take at Discharge Allopurinol [Zyloprim] 100 mg PO DAILY 07/28/13 Omeprazole [Prilosec] 20 mg PO DAILY 07/28/13 Sertraline HCl [Zoloft] 150 mg PO QHS 06/24/16 Cholecalciferol (Vitamin D3) [D3-2000] 2,000 unit PO DAILY 08/25/19 Nortriptyline HCl [Pamelor] 30 mg PO QHS 08/25/19 potassium chloride 20 mEq tablet,extended release(part/cryst) 20 meq PO DAILY #90 tab 09/21/19 albuterol sulfate 90 mcg/actuation aerosol inhaler 1 puff INHALATION Q6H PRN 05/10/20 denosumab 60 mg/mL subcutaneous syringe 60 mg SC [id number] ml 05/10/20 Ammonium Lactate [Amlactin] 57 gm TP DAILY 08/06/20 Apixaban [Eliquis] 5 mg PO BID 08/06/20 Atorvastatin Calcium [Lipitor] 10 mg PO QHS 08/06/20 Carvedilol 6.25 mg PO BID 08/06/20 Furosemide 20 mg PO BID 08/06/20 Hydrocortisone 2.5% Crm [Hytone] 1 applic TOPICAL BID 08/06/20 Ipratropium/Albuterol Sulfate [Duoneb] 3 ml INHALATION Q6H PRN PRN 08/06/20 Losartan Potassium [Cozaar] 50 mg PO DAILY 08/06/20 Mag Hydrox/Al Hydrox/Simeth [Mylanta II] 10 ml PO Q6H PRN PRN 08/06/20 Magnesium Oxide [Magnesium Oxide 400] 240 mg PO BID 08/06/20 Acetaminophen [Tylenol] 1,000 mg PO Q6H PRN PRN tab 08/21/20 Iron Polysaccharide Complex [Ferrex 150] 150 mg PO DAILYCM #30 cap 08/21/20 Menthol/Lanolin/Calamine/Znox [Calmoseptine Ointment] 1 applic TOPICAL 0600,2200 tube 08/21/20 Nystatin Powder [Mycostatin Powder] 1 applic TOPICAL BID bottle 08/21/20 Potassium Chloride [K-Dur] 20 meq PO DAILYCM #30 tab 08/21/20 The following prescriptions were given: Iron Polysaccharide Complex [Ferrex 150] 150 mg PO DAILYCM #30 cap [facility]: [id number] Potassium Chloride [K-Dur] 20 meq PO DAILYCM #30 tab Transmission Status: Pending to [id number] Primary Care Physician: Norberto Shearer MD [Primary Care Provider] - Please follow up with your Primary Care Physician in: 1 week. Test Results: Test results from this visit will be discussed in further detail at your follow- up appointment, if applicable. Please Follow Up With: CALVIN Cruz When: 2 weeks. Proposed Discharge Date: 08/25/20
--- NOTE | 2020-08-21 21:01 | DS.PCM_ITS ---
Discharge Date and Diagnosis - Problem List Patient Problems: Active and Suspected Problems (Last Updated 07/28/20 @ 13:05 by Neda Hendrickson) Debility (Acute) Septic shock (Acute) Pneumonia (Acute) Acute on chronic systolic congestive heart failure (Acute) Acute kidney injury (Acute) Date of Admission: 08/06/20 Date of Discharge: 08/25/20 - Primary Discharge Diagnosis Acute Problems: Active Problems (Last Updated 07/28/20 @ 13:05 by Neda Hendrickson) Debility (Acute) Septic shock (Acute) Pneumonia (Acute) Acute on chronic systolic congestive heart failure (Acute) Acute kidney injury (Acute) - Secondary Discharge Diagnosis Chronic Problems: Chronic Problems (Last Updated 07/28/20 @ 13:05 by Neda Hendrickson) COPD (chronic obstructive pulmonary disease) (Chronic) Body mass index (BMI) of 39.0 to 39.9 in adult (Chronic) Complete heart block (Chronic) Atrial fibrillation (Chronic) Gout (Chronic) GERD (gastroesophageal reflux disease) (Chronic) Pcwwd-wj-qgebgko kidney injury (Chronic) Non-ischemic cardiomyopathy (Chronic) Monomorphic ventricular tachycardia (Chronic) Second degree atrioventricular block (Chronic) Chronic atrial fibrillation (Chronic) Paroxysmal atrial tachycardia (Chronic) 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) Mitral papillary muscle dysfunction (Chronic) Non-rheumatic tricuspid valve insufficiency (Chronic) Secondary pulmonary arterial hypertension (Chronic) Essential (primary) hypertension (Chronic) Hyperlipidemia (Chronic) ASCUS of cervix with negative high risk HPV (Chronic) needs repeat pap 10/2020 Hospital Course and Treatment Imaging Results: 08/21/20 12:40 XRAY Abdomen [Abdomen Single View] [RAD] Urgent 08/06/20 15:14 Diet: Cardiac - Heart Healthy Is pt able to select menu?: Yes Clinical Impression(s) from Imaging Studies KUB X-Ray 08/21/20 12:40 IMPRESSION: Moderate stool burden throughout the colon, increased from prior. Electronically Signed: Hany Kruse, at 20:20 EDT Tel , Service support , Labs (Last 48 Hours) 08/21/20 08/21/20 05:10 05:10 WBC 6.8 RBC 3.23 L Hgb 8.2 L Hct 28.0 L MCV 86.7 MCH 25.4 L MCHC 29.3 L RDW Std Deviation 61.6 H RDW Coeff of Lily 19.5 H Plt Count 294 MPV 10.3 Immature Gran % (Auto) 0.400 Neut % (Auto) 72.7 H Lymph % (Auto) 12.4 L [place] % (Auto) 6.1 Eos % (Auto) 8.1 H Baso % (Auto) 0.3 Absolute Neuts (auto) 4.9 Absolute Lymphs (auto) 0.84 Nucleated RBC % 0 Sodium 141 Potassium 3.3 L Chloride 109 H Carbon Dioxide 25.0 Anion Gap 7 BUN 22 H Creatinine 1.37 H Estim Creat Clear Calc 32.51 Est GFR (MDRD) Af Amer 49 L Est GFR (MDRD) Non-Af 41 L BUN/Creatinine Ratio 16.1 Glucose 90 Calcium 9.1 Microbiology 08/20/20 10:20 Mucosa - Nose - Final Consultations 08/16/20 22:22 Consult: Onc/Wound/drainman Routine Comment: Reason for Consult:: open areas to buttocks Operations: None Procedures: None Summary of Care Provided: The patient is a 69 year old Female with below past medical history significant for recent defibrillator implantation, complicated by septic shock, pneumonia, acute kidney injury, admitted to TCU with debility, here for rehabilitation, strengthening, prior to discharge home alone. On TCU, resident treated for Enterobacter Cloacae Complex UTI with Cipro. Resident constipated while on TCU, constipation seen on multiple KUB's, resident resident to laxatives, consider stopping Loperamide, or referral to Gastroenterology. Discharge home alone, [facility] PT/OT/SN, [employer] Front Wheeled Walker. Patient Problems: Active and Suspected Problems (Last Updated 07/28/20 @ 13:05 by Nead Hendrickson) Debility (Acute) Septic shock (Acute) Pneumonia (Acute) Acute on chronic systolic congestive heart failure (Acute) Acute kidney injury (Acute) - Physical Exam Vitals/I&O's: Vital Signs Temp Pulse Resp BP Pulse Ox 97.4 F L 61 14 117/69 98 08/21/20 14:22 08/21/20 14:22 08/21/20 14:22 08/21/20 14:22 08/21/20 14:22 Oxygen Flow Rate (L/min) 1 Oxygen Delivery Method Room Air Weight: 101.746 kg Body Mass Index (BMI) 39.0 Intake and Output for Last 24 Hours 08/19/20 08/20/20 08/21/20 23:59 23:59 23:59 Intake Total 1080 / 1080 760 / 760 120 / 120 Balance 1080 / 1080 760 / 760 120 / 120 Microbiology Past 72 Hours 08/20/20 10:20 Mucosa - Nose - Final Laboratory Results 08/21/20 05:10: WBC 6.8, RBC 3.23 L, Hgb 8.2 L, Hct 28.0 L, MCV 86.7, MCH 25.4 L , MCHC 29.3 L, RDW Std Deviation 61.6 H, RDW Coeff of Lily 19.5 H, Plt Count 294, MPV 10.3, Immature Gran % (Auto) 0.400, Neut % (Auto) 72.7 H, Lymph % (Auto) 12.4 L, [place] % (Auto) 6.1, Eos % (Auto) 8.1 H, Baso % (Auto) 0.3, Absolute Neuts (auto) 4.9, Absolute Lymphs (auto) 0.84, Nucleated RBC % 0 08/21/20 05:10: Sodium 141, Potassium 3.3 L, Chloride 109 H, Carbon Dioxide 25.0, Anion Gap 7, BUN 22 H, Creatinine 1.37 H, Estim Creat Clear Calc 32.51, Est GFR (MDRD) Af Amer 49 L, Est GFR (MDRD) Non-Af 41 L, BUN/Creatinine Ratio 16.1, Glucose 90, Calcium 9.1 Current Medications Acetaminophen (Tylenol) 1,000 mg PO Q6H PRN PRN PRN Reason: Pain Score 1-10 Al Hydroxide/Mg Hydroxide (Mylanta Ii) 10 ml PO Q6H PRN PRN PRN Reason: Stomach upset Last Admin: 08/07/20 05:22 Dose: 10 ml Documented by: Albuterol Sulfate (Ventolin Hfa (Sp)) 1 puff INHALATION Q6H PRN PRN PRN Reason: short of breath/weezing Albuterol/Ipratropium (Duoneb) 3 ml INHALATION Q6H PRN PRN PRN Reason: Wheezing/SOB Last Admin: 08/06/20 23:10 Dose: 3 ml Documented by: [facility] Last Admin: 08/21/20 08:03 Dose: 100 mg Documented by: Apixaban (Eliquis) 5 mg PO BID [facility] Last Admin: 08/21/20 17:46 Dose: 5 mg Documented by: Atorvastatin Calcium (Lipitor) 10 mg PO QHS [facility] [place] Last Admin: 08/20/20 20:54 Dose: 10 mg Documented by: Bisacodyl (Dulcolax) 10 mg RECTAL DAILY PRN PRN Reason: Constipation Calamine/Phenol (Calmoseptine Ointment) 1 applic TOPICAL 0600,2200 [facility]; Protocol Last Admin: 08/21/20 05:53 Dose: 1 applicatio Documented by: Carvedil[facility] (Coreg) [facility] Last Admin: 08/21/20 17:46 Dose: 6.25 mg Documented by: Cholecalciferol (Vitamin D (25mcg)) 2,000 unit PO DAILY [facility] [place] Last Admin: 08/21/20 05:50 Dose: 2,000 unit Documented by: Ciprofloxacin HCl (Ciprofloxacin 500 Mg Tablet) 500 mg PO BID [facility] [place] Stop: 08/22/20 18:01 Last Admin: 08/21/20 17:46 Dose: 500 mg Documented by: Furosemide (Lasix) 20 mg PO BID [facility] [place] Last Admin: 08/21/20 17:47 Dose: 20 mg Documented by: Hydrocortisone (Hytone) 1 applic TOPICAL BID [facility] [place]; Protocol Last Admin: 08/21/20 05:53 Dose: 1 applicatio Documented by: Lactic Acid (Ammonium Lactate 225 Gm Bottle) 1 applic TOPICAL DAILY [facility] [place]; Protocol Last Admin: 08/21/20 05:52 Dose: 1 applicatio Documented by: Losartan Potassium (Cozaar) 50 mg PO DAILY [facility] [place] Last Admin: 08/21/20 05:50 Dose: 50 mg Documented by: Magnesium Chloride (Mag64) 128 mg PO BID [facility] [place] Last Admin: 08/21/20 17:47 Dose: 128 mg Documented by: Nortriptyline HCl (Pamelor) 30 mg PO QHS [facility] [place] Last Admin: 08/20/20 20:54 Dose: 30 mg Documented by: Nystatin (Mycostatin Powder) 1 applic TOPICAL BID [facility] [place]; Protocol Last Admin: 08/21/20 05:53 Dose: 1 applicatio Documented by: Pantoprazole Sodium (Protonix) 40 mg PO DAILY [facility] [place] Last Admin: 08/21/20 05:51 Dose: 40 mg Documented by: Polyethylene Glycol (Polyethylene Glycol 3350 17 Gm Packet) 17 gm PO DAILY PRN PRN Reason: Constipation Polysaccharide Iron Complex (Iron Polysaccharide Complex 150 Mg Capsule) [facility] Last Admin: 08/21/20 08:03 Dose: 150 mg Documented by: Potassium Chloride (Potassium Chloride 20 Meq Tablet) [facility] Last Admin: 08/21/20 09:25 Dose: 20 meq Documented by: Senna/Docusate Sodium (Senna/Docusate Sodium 1 Tablet) 2 tablet PO BID PRN PRN Reason: Constipation Sertraline HCl (Zoloft) 150 mg PO QHS [facility] [place] Last Admin: 08/20/20 20:54 Dose: 150 mg Documented by: Discharge Diet: No Restrictions Discharge Activity: Return to Normal Activity, May Shower, Use Walker Weight Bearing Status: Weight bearing as tolerated Call your doctor if you observe: Fever of 101 or Higher, Inability to urinate, Inability to have a bowel movement, Shortness of breath, Chest pain, Uncontrolled pain Home Medications: Medications to take at Discharge Allopurinol [Zyloprim] 100 mg PO DAILY 07/28/13 Omeprazole [Prilosec] 20 mg PO DAILY 07/28/13 Sertraline HCl [Zoloft] 150 mg PO QHS 06/24/16 Cholecalciferol (Vitamin D3) [D3-2000] 2,000 unit PO DAILY 08/25/19 Nortriptyline HCl [Pamelor] 30 mg PO QHS 08/25/19 potassium chloride 20 mEq tablet,extended release(part/cryst) 20 meq PO DAILY #90 tab 09/21/19 albuterol sulfate 90 mcg/actuation aerosol inhaler 1 puff INHALATION Q6H PRN denosumab 60 mg/mL subcutaneous syringe 60 mg SC [id number] ml 05/10/20 Ammonium Lactate [Amlactin] 57 gm TP DAILY 08/06/20 Apixaban [Eliquis] 5 mg PO BID 08/06/20 Atorvastatin Calcium [Lipitor] 10 mg PO QHS 08/06/20 Carvedilol 6.25 mg PO BID 08/06/20 Furosemide 20 mg PO BID 08/06/20 Hydrocortisone 2.5% Crm [Hytone] 1 applic TOPICAL BID 08/06/20 Ipratropium/Albuterol Sulfate [Duoneb] 3 ml INHALATION Q6H PRN PRN 08/06/20 Losartan Potassium [Cozaar] 50 mg PO DAILY 08/06/20 Mag Hydrox/Al Hydrox/Simeth [Mylanta II] 10 ml PO Q6H PRN PRN 08/06/20 Magnesium Oxide [Magnesium Oxide 400] 240 mg PO BID 08/06/20 Acetaminophen [Tylenol] 1,000 mg PO Q6H PRN PRN tab 08/21/20 Iron Polysaccharide Complex [Ferrex 150] 150 mg PO DAILYCM #30 cap 08/21/20 Menthol/Lanolin/Calamine/Znox [Calmoseptine Ointment] 1 applic TOPICAL 0600,2200 tube 08/21/20 Nystatin Powder [Mycostatin Powder] 1 applic TOPICAL BID bottle 08/21/20 Potassium Chloride [K-Dur] 20 meq PO DAILYCM #30 tab 08/21/20 Following Prescriptions Were Given to Patient: Iron Polysaccharide Complex [Ferrex 150] 150 mg PO DAILYCM #30 cap Transmission Status: Pending to [id number] Potassium Chloride [K-Dur] 20 meq PO DAILYCM #30 tab Transmission Status: Pending to [id number] Primary Care Physician: Norberto Shearer MD [Primary Care Provider] - Please follow up with your Primary Care Physician in: 1 week. Please Follow Up With: CALVIN Cruz When: 2 weeks. Disposition: Home with Home Health Patient Condition:: Stable Medical Necessity - Tobacco Use Smoking Status: Never smoker Tobacco Use: Non-smoker Meaningful Use Info Meaningful Use Diagnoses (Choose all that apply): None applicable
[2020-08-21] MEDS: Nortriptyline 10 MG Capsule 30 MG PO (21:45)
[2020-08-21] MEDS: Sertraline 100 MG Tablet 150 MG PO (21:45)
[2020-08-21] MEDS: Atorvastatin Calcium 10 MG Tablet PO (21:46)
[2020-08-22] MEDS: Menthol/Lanolin/Calamine/Znox 113 GM Tube 1 APPLIC TOPICAL ×2 (04:54→20:11)
[2020-08-22] MEDS: Furosemide 20 MG Tablet PO ×2 (04:55→17:26)
[2020-08-22] MEDS: Losartan Potassium 50 MG Tablet PO (04:55)
[2020-08-22] MEDS: Ciprofloxacin 500 MG Tablet PO ×2 (04:55→17:25)
[2020-08-22] MEDS: APIXABAN 5 MG TABLET PO ×2 (04:56→17:25)
[2020-08-22] MEDS: Pantoprazole Sodium 40 MG Tablet PO (04:56)
[2020-08-22] MEDS: Magnesium Chloride 64 MG Delay Rel.Tablet 128 MG PO ×2 (04:56→17:24)
[2020-08-22] MEDS: Nystatin Powder 15gm Bottle 1 APPLIC TOPICAL ×2 (04:56→17:26)
[2020-08-22] MEDS: Hydrocortisone 2.5% Crm 1 APPLIC TOPICAL (04:57)
[2020-08-22] MEDS: Ammonium Lactate 225 gm Bottle 1 APPLIC TOPICAL (04:57)
[2020-08-22 04:59] VITALS: BP 132/77; PULSE 80; RESP 18; TEMP 36.6; O2SAT 95
[2020-08-22] MEDS: Carvedilol 6.25 MG Tablet PO ×2 (08:22→17:24)
[2020-08-22] MEDS: Iron Polysaccharide Complex 150 MG CAPSULE PO (08:22)
[2020-08-22] MEDS: Allopurinol 100 MG Tablet PO (08:22)
[2020-08-22 14:23] VITALS: BP 112/48; PULSE 64; RESP 17; TEMP 36.6
[2020-08-22] MEDS: Nortriptyline 10 MG Capsule 30 MG PO (20:07)
[2020-08-22] MEDS: Sertraline 100 MG Tablet 150 MG PO (20:08)
[2020-08-22] MEDS: Atorvastatin Calcium 10 MG Tablet PO (20:09)
[2020-08-22 20:12] VITALS: PULSE 78; RESP 16; O2SAT 96
[2020-08-23 05:00] VITALS: BP 120/70; PULSE 69; RESP 18; TEMP 36.6; O2SAT 95
[2020-08-23] MEDS: Losartan Potassium 50 MG Tablet PO (05:19)
[2020-08-23] MEDS: Furosemide 20 MG Tablet PO ×2 (05:19→17:38)
[2020-08-23] MEDS: APIXABAN 5 MG TABLET PO ×2 (05:19→17:37)
[2020-08-23] MEDS: Magnesium Chloride 64 MG Delay Rel.Tablet 128 MG PO ×2 (05:19→17:37)
[2020-08-23] MEDS: Pantoprazole Sodium 40 MG Tablet PO (05:19)
[2020-08-23] MEDS: Ammonium Lactate 225 gm Bottle 1 APPLIC TOPICAL (05:21)
[2020-08-23] MEDS: Nystatin Powder 15gm Bottle 1 APPLIC TOPICAL ×2 (05:22→17:38)
[2020-08-23] MEDS: Menthol/Lanolin/Calamine/Znox 113 GM Tube 1 APPLIC TOPICAL ×2 (05:22→22:02)
[2020-08-23 06:28] LABS: Anion Gap 7 (5-15); BUN 20 mg/dL (7-18); BUN/Creat Ratio 15.3 RATIO (10-20); Calcium,Total 8.9 mg/dL (8.5-10.1); Chloride 107 mmol/L (98-107); Creatinine, Serum 1.31 mg/dL (0.55-1.02); EST Glomerular Filtration Rate 43 mL/min (>60); Est Glom Filt Rate - Afr Amer 52 mL/min (>60); Glucose 88 mg/dL (74-106); Potassium 3.6 mmol/L (3.5-5.1); Sodium Level 141 mmol/L (136-145)
[2020-08-23] MEDS: Iron Polysaccharide Complex 150 MG CAPSULE PO (07:51)
[2020-08-23] MEDS: Carvedilol 6.25 MG Tablet PO ×2 (07:52→17:37)
[2020-08-23] MEDS: Allopurinol 100 MG Tablet PO (07:52)
[2020-08-23 10:00] VITALS: PULSE 77; RESP 18
[2020-08-23 13:28] VITALS: BP 108/54; PULSE 80; RESP 16; TEMP 36.6; O2SAT 93
[2020-08-23] MEDS: Nortriptyline 10 MG Capsule 30 MG PO (21:56)
[2020-08-23] MEDS: Atorvastatin Calcium 10 MG Tablet PO (21:56)
[2020-08-23] MEDS: Sertraline 100 MG Tablet 150 MG PO (21:56)
[2020-08-24 05:00] VITALS: BP 131/67; PULSE 67; RESP 16; TEMP 36.9; O2SAT 94
[2020-08-24] MEDS: Magnesium Chloride 64 MG Delay Rel.Tablet 128 MG PO ×2 (06:29→17:22)
[2020-08-24] MEDS: Pantoprazole Sodium 40 MG Tablet PO (06:30)
[2020-08-24] MEDS: Losartan Potassium 50 MG Tablet PO (06:30)
[2020-08-24] MEDS: Furosemide 20 MG Tablet PO ×2 (06:30→17:22)
[2020-08-24] MEDS: APIXABAN 5 MG TABLET PO ×2 (06:30→17:22)
[2020-08-24] MEDS: Ammonium Lactate 225 gm Bottle 1 APPLIC TOPICAL (06:31)
[2020-08-24] MEDS: Menthol/Lanolin/Calamine/Znox 113 GM Tube 1 APPLIC TOPICAL (06:32)
[2020-08-24] MEDS: Nystatin Powder 15gm Bottle 1 APPLIC TOPICAL ×2 (06:33→17:23)
[2020-08-24] MEDS: Iron Polysaccharide Complex 150 MG CAPSULE PO (07:52)
[2020-08-24] MEDS: Carvedilol 6.25 MG Tablet PO ×2 (07:52→17:21)
[2020-08-24] MEDS: Allopurinol 100 MG Tablet PO (07:53)
--- NOTE | 2020-08-24 10:31 | CASEMGMT ---
Social Work BIMS and PHQ-9 completed for MDS assessment. Heather Lugo, [employer]
[2020-08-24 14:11] VITALS: BP 114/58; PULSE 65; RESP 16; TEMP 36.3; O2SAT 98
[2020-08-24] MEDS: Sertraline 100 MG Tablet 150 MG PO (20:40)
[2020-08-24] MEDS: Nortriptyline 10 MG Capsule 30 MG PO (20:40)
[2020-08-24] MEDS: Atorvastatin Calcium 10 MG Tablet PO (20:40)
[2020-08-25 01:57] VITALS: BP 124/70; PULSE 71; RESP 18; TEMP 36.9; O2SAT 94
[2020-08-25] MEDS: APIXABAN 5 MG TABLET PO (05:29)
[2020-08-25] MEDS: Magnesium Chloride 64 MG Delay Rel.Tablet 128 MG PO (05:30)
[2020-08-25] MEDS: Pantoprazole Sodium 40 MG Tablet PO (05:30)
[2020-08-25] MEDS: Furosemide 20 MG Tablet PO (05:30)
[2020-08-25] MEDS: Losartan Potassium 50 MG Tablet PO (05:30)
[2020-08-25] MEDS: Menthol/Lanolin/Calamine/Znox 113 GM Tube 1 APPLIC TOPICAL (05:31)
[2020-08-25] MEDS: Iron Polysaccharide Complex 150 MG CAPSULE PO (08:57)
[2020-08-25] MEDS: Carvedilol 6.25 MG Tablet PO (08:58)
[2020-08-25] MEDS: Allopurinol 100 MG Tablet PO (08:58)
[2020-08-25 09:00] VITALS: BP 114/65; PULSE 68; RESP 18; TEMP 36.9; O2SAT 96
[2020-08-25 09:15] VITALS: PULSE 68; RESP 18; O2SAT 96
== END 2020-08-25 10:50 | disposition home health service (06) | DRG 190 ==
PROVIDERS: Admitting Provider Family Medicine Geriatric Medicine; PCP Family Medicine; Visit Provider Family Medicine Geriatric Medicine
DX: J44.0 Chronic obstructive pulmonary disease with (acute) lower respiratory infection (principal); J18.9 Pneumonia, unspecified organism; I50.22 Chronic systolic (congestive) heart failure; I48.20 Chronic atrial fibrillation, unspecified; I42.8 Other cardiomyopathies; I13.0 Hypertensive heart and chronic kidney disease with heart failure and stage 1 through stage 4 chronic kidney disease, or unspecified chronic kidney disease; E78.5 Hyperlipidemia, unspecified; F32.9 Major depressive disorder, single episode, unspecified; K21.9 Gastro-esophageal reflux disease without esophagitis; B35.4 Tinea corporis; E55.9 Vitamin D deficiency, unspecified; M10.9 Gout, unspecified; I25.10 Atherosclerotic heart disease of native coronary artery without angina pectoris; I27.21 Secondary pulmonary arterial hypertension; N18.9 Chronic kidney disease, unspecified; K58.9 Irritable bowel syndrome, unspecified; E66.9 Obesity, unspecified; Z68.39 Body mass index [BMI] 39.0-39.9, adult; Z86.718 Personal history of other venous thrombosis and embolism; M19.90 Unspecified osteoarthritis, unspecified site; Z23 Encounter for immunization
CPT/HCPCS: 36415; 74018; 80048; 81001; 85014; 85018; 85025; 87077; 87086; 87088; 87186; 87426; 87635; 92610; 94640; 97110; 97116; 97162; 97166; 97530; 97535; 97802; U0003

== ENCOUNTER 2020-09-11 13:40 | Outpatient (RCR) | payer MEDICARE, OTHER, SELFPAY ==
[2020-09-06 08:25] VITALS: BMI 38.0
[2020-09-11 14:04] LABS: Hematocrit 30.8 % (37-47); Mean Corp Hgb Conc 29.2 g/dL (32-36); Mean Corpuscular Volume 85.6 fL (81-99); Platelet Count 415 K/mm3 (150-450); RBC Distribution Width CV 18.6 % (11.6-14.6); RBC Distribution Width SD 59.2 fl (35.1-43.9); White Blood Count 9.4 K/mm3 (4.4-11.0)
[2020-09-11 14:28] LABS: Anion Gap 7 (5-15); BUN 18 mg/dL (7-18); BUN/Creat Ratio 14.4 RATIO (10-20); Calcium,Total 9.7 mg/dL (8.5-10.1); Chloride 112 mmol/L (98-107); Creatinine, Serum 1.25 mg/dL (0.55-1.02); EST Glomerular Filtration Rate 45 mL/min (>60); Est Glom Filt Rate - Afr Amer 55 mL/min (>60); Glucose 99 mg/dL (74-106); Magnesium 1.5 mg/dL (1.6-2.6); Potassium 3.9 mmol/L (3.5-5.1); Sodium Level 144 mmol/L (136-145)
== END 2020-09-11 18:00 | disposition home or self-care (01) ==
LOC: HHLAB 13:40
PROVIDERS: PCP Family Medicine; Visit Provider Internal Medicine Cardiovascular Disease
DX: D64.9 Anemia, unspecified (principal); E87.6 Hypokalemia
CPT/HCPCS: 80048; 83735; 85027

== ENCOUNTER → 2020-11-13 07:54 | Outpatient (CLI) | payer MEDICARE, OTHER, SELFPAY ==
[2020-09-06 08:25] VITALS: BMI 38.0
--- NOTE | 2020-11-13 07:56 | BI_ITS ---
MAMMOGRAPHY - BILATERAL SCREENING REASON FOR EXAM: Female, 70 years old. Routine annual screening examination. PERTINENT HISTORY: Non-contributory. Remote left excisional breast biopsy. Since the placement of the left sided pacemaker, there has been persistent lateral breast swelling. TECHNIQUE: Digital bilateral breast kathie (3D mammographic acquisition) in the CC and MLO projections. 2-D mediolateral oblique (MLO) and craniocaudad (CC) views of both breasts were obtained. CAD: Full Field Digital Mammography with Computer Added Detection was performed. COMPARISON: Comparison is made with prior examination dated generally 2019 and 11/03/2018. FINDINGS: Breast Composition: There are scattered areas of fibroglandular density. Since prior examination, there is evidence of bone left breast skin thickening as well as increased markings in the anterior aspect of the left breast in keeping with the patient''s history of soft tissue swelling following the surgical intervention. Correlation with ultrasound the left breast is recommended. Stable 8 mm x 4 mm well-defined nodule in the retroareolar region of the right breast. No other significant abnormalities are identified. BI/SCRN MAMM (CAD)W/KATHIE BILAT IMPRESSION: Left breast skin thickening and edematous changes in the left breast as described. Correlation with ultrasound is recommended. ASSESSMENT CATEGORY: BIRADS Category 0: Incomplete. Need additional imaging evaluation. A letter regarding these results will be sent to the patient by the facility within 30 days. Approximately 10% of breast cancers are not detected by mammography. A normal mammogram should not delay biopsy of a clinically suspicious abnormality. [id number] Electronically Signed: López Kenney MD at 9:28 EST , Service support ,
[2020-11-16 20:15] LABS: HPV APTIMA, High Risk Negative (Negative)
== END ==
PROVIDERS: PCP Family Medicine; Referring Provider Nurse Practitioner Women's Health; Visit Provider Nurse Practitioner Women's Health
DX: Z12.31 Encounter for screening mammogram for malignant neoplasm of breast (principal); Z12.4 Encounter for screening for malignant neoplasm of cervix
CPT/HCPCS: 77063; 77067; 87624; 88175; G0145

== ENCOUNTER → 2020-11-14 08:29 | Outpatient (CLI) | payer MEDICARE, OTHER, SELFPAY ==
[2020-11-13 08:31] VITALS: BMI 39.2
--- NOTE | 2020-11-14 08:31 | US_ITS ---
STUDY: ULTRASOUND BREAST - RIGHT REASON FOR EXAM: Female, 70 years old. Left breast swelling following pacemaker insertion. TECHNIQUE: Axial and longitudinal images of the RIGHT breast were performed with a high resolution ultrasound transducer. # OF IMAGES: 93 COMPARISON: Comparison is made with prior mammogram dated 11/13/2020. FINDINGS: RIGHT Breast: There is evidence of a skin thickening as well as a edematous changes within the breast in keeping with the mammographic findings. US/Breast Complete Unilateral IMPRESSION: Skin thickening and edematous changes within the breast tissue. ASSESSMENT CATEGORY: BIRADS Category 2: Benign. A letter regarding these results will be sent to the patient by the facility within 30 days. Electronically Signed: López Kenney MD at 13:38 EST , Service support ,
== END ==
PROVIDERS: PCP Family Medicine; Referring Provider Nurse Practitioner Women's Health; Visit Provider Nurse Practitioner Women's Health
DX: R92.8 Other abnormal and inconclusive findings on diagnostic imaging of breast (principal)
CPT/HCPCS: 76641

== ENCOUNTER → 2020-11-21 11:01 | Outpatient (CLI) | payer MEDICARE, OTHER, SELFPAY ==
[2020-11-13 08:31] VITALS: BMI 39.2
[2020-11-21 12:20] LABS: Absolute Lymphocyte Count 1.35 X10^3/uL (0.83-4.51); Absolute Neutrophil Count 6.1 X10^3/uL (2.0-7.7); Basophil# 0.03 X10^3/uL; Basophil% 0.4 % (0-1); Eosinophil# 0.16 X10^3/uL; Hematocrit 32.7 % (37-47); Hemoglobin 9.6 g/dL (12.0-15.0); Lymphocyte # 1.35 X10^3/ul (4.0); Lymphocyte % 16.5 % (19-41); Mean Corp Hgb Conc 29.4 g/dL (32-36); Mean Corpuscular Hgb 24.1 pg (27.0-32.0); Mean Corpuscular Volume 82.2 fL (81-99); Mean Platelet Vol. 10.9 fl (6.2-12.0); Monocyte# 0.49 X10^3/uL; NRBC Flagged by Analyzer 0 % (0-5); Neutrophil # 6.11 X10^3/uL (2.7-7.7); Neutrophil % 74.7 % (47-70); Platelet Count 431 K/mm3 (150-450); RBC Distribution Width CV 17.2 % (11.6-14.6); RBC Distribution Width SD 50.6 fl (35.1-43.9); Red Blood Count 3.98 M/mm3 (4.2-5.4); White Blood Count 8.2 K/mm3 (4.4-11.0)
[2020-11-21 13:27] LABS: ALB/GLOB Ratio 0.8 RATIO (0.9-2.4); AST(SGOT) 12 U/L (15-37); Alanine Aminotransfer ALT/SGPT 11 U/L (13-56); Albumin, Serum 3.3 g/dL (3.2-5.0); Alkaline Phosphatase 67 U/L (45-117); Anion Gap 7 (5-15); BUN 19 mg/dL (7-18); BUN/Creat Ratio 12.8 RATIO (10-20); Calcium,Total 9.3 mg/dL (8.5-10.1); Chloride 106 mmol/L (98-107); Creatinine, Serum 1.48 mg/dL (0.55-1.02); EST Glomerular Filtration Rate 37 mL/min (>60); Est Glom Filt Rate - Afr Amer 45 mL/min (>60); Globulin 4.1 g/dL (2.2-4.2); Glucose 94 mg/dL (74-106); Potassium 3.9 mmol/L (3.5-5.1); Protein, Total 7.4 g/dL (6.4-8.2); Sodium Level 140 mmol/L (136-145); Thyroid Stim Hormone (TSH) 4.41 uIU/mL (0.358-3.74)
== END ==
PROVIDERS: PCP Family Medicine; Referring Provider Family Medicine; Visit Provider Family Medicine
DX: L65.9 Nonscarring hair loss, unspecified (principal)
CPT/HCPCS: 36415; 80053; 84443; 85025

== ENCOUNTER → 2020-12-07 08:57 | Outpatient (CLI) | payer MEDICARE, OTHER, SELFPAY ==
[2020-11-13 08:31] VITALS: BMI 39.2
--- NOTE | 2020-12-07 08:58 | ECHOCS_ITS ---
Reason For Study: CHF Procedure This was a 2D Doppler, Color Flow transthoracic echocardiogram. Contrast injection was performed. Exam performed in department. Left Ventricle Normal LV size. Moderate concentric left ventricular hypertrophy. The estimated ejection fraction is 45 %. Stage 3 diastolic dysfunction. There is mild to moderate global hypokinesis of the left ventricle. Atria The left atrium is severely enlarged. The right atrium is moderately enlarged. Mitral Valve Mild diffuse mitral valve thickening. Mild (1+) eccentric mitral valve insufficiency. Tricuspid Valve Normal tricuspid valve. Mild to moderate (1-2+) tricuspid valve insufficiency. Pulmonary artery systolic pressure is 44 mmHg. Aortic Valve Trisinus/trileaflet aortic valve. Mild focal aortic valve calcification. Mild (1+) aortic valve insufficiency. Great Vessels Normal aortic root. Pericardium/Pleural No pericardial effusion. Medication Diluted definity 3ml given slow IV push to enhance endocardial definition. MMode/2D Measurements & Calculations LVIDd: 5.4 cm IVSd: 1.4 cm Ao root diam: 3.4 cm LVIDs: 4.6 cm LVPWd: 1.4 cm RVDd: 3.5 cm FS: 14.8 % LAV(MOD-bp): 160.6 ml LVAd ap4: 36.3 cm2 SV(MOD-sp4): 43.4 ml LAV(MOD-bp) Indexed: 79.6 ml/m2 EDV(MOD-sp4): 126.3 ml LAV(MOD-sp2): 161.8 ml EDV(sp4-el): 128.5 ml LAV(MOD-sp4): 144.9 ml LVAs ap4: 28.6 cm2 ESV(MOD-sp4): 83.0 ml ESV(sp4-el): 84.9 ml EF(MOD-sp4): 34.3 % EF(sp4-el): 33.9 % SV(sp4-el): 43.6 ml LA A4 area: 36.7 cm2 LA dimension(2D): 4.7 cm RA A4 area: 27.7 cm2 Doppler Measurements & Calculations MV E max josé miguel: 117.4 cm/sec Lat Peak E' José Miguel: 10.8 cm/sec Med Peak E' José Miguel: 4.6 cm/sec MV A max josé miguel: 35.7 cm/sec E/E' lat: 10.9 E/E' med: 25.6 MV E/A: 3.3 Ao V2 max: 138.5 cm/sec AI max josé miguel: 436.9 cm/sec LV V1 max: 123.1 cm/sec Ao max P.7 mmHg AI max P.4 mmHg LV V1 max P.1 mmHg Ao V2 mean: 101.0 cm/sec Ao mean P.3 mmHg AI dec slope: 201.1 cm/sec2 Ao V2 VTI: 26.3 cm AI P1/2t: 636.3 msec PA V2 max: 77.0 cm/sec TR max josé miguel: 326.9 cm/sec TR max P.8 mmHg Interpretation Summary Normal LV size. Moderate concentric left ventricular hypertrophy. The estimated ejection fraction is 45 %. Stage 3 diastolic dysfunction. Pulmonary artery systolic pressure is 44 mmHg. Mild (1+) eccentric mitral valve insufficiency. Contrast injection was performed. Compared to previous study, the left ventricular systolic function has improved.. Ordering Physician: Shahid Alejandro Referring Physician: Norberto Shearer Performed By: Rubia Duarte, LUIZA, RVT
== END ==
PROVIDERS: PCP Family Medicine; Referring Provider Internal Medicine Cardiovascular Disease; Visit Provider Internal Medicine Cardiovascular Disease
DX: I50.9 Heart failure, unspecified (principal); R65.21 Severe sepsis with septic shock
CPT/HCPCS: 93306; Q9957; A4216; C8929

== ENCOUNTER → 2020-12-17 09:39 | Outpatient (CLI) | payer MEDICARE, OTHER, SELFPAY ==
[2020-11-13 08:31] VITALS: BMI 39.2
[2020-12-17 12:48] LABS: Hematocrit 22.7 % (37-47); Hemoglobin 6.4 g/dL (12.0-15.0); Mean Corp Hgb Conc 28.2 g/dL (32-36); Mean Corpuscular Hgb 22.9 pg (27.0-32.0); Mean Corpuscular Volume 81.1 fL (81-99); Mean Platelet Vol. 10.8 fl (6.2-12.0); Platelet Count 391 K/mm3 (150-450); RBC Distribution Width CV 17.3 % (11.6-14.6); RBC Distribution Width SD 51.1 fl (35.1-43.9)
[2020-12-17 13:11] LABS: Anion Gap 7 (5-15); BUN 19 mg/dL (7-18); BUN/Creat Ratio 13.8 RATIO (10-20); Calcium,Total 8.7 mg/dL (8.5-10.1); Chloride 111 mmol/L (98-107); Creatinine, Serum 1.38 mg/dL (0.55-1.02); EST Glomerular Filtration Rate 40 mL/min (>60); Est Glom Filt Rate - Afr Amer 49 mL/min (>60); Glucose 106 mg/dL (74-106); Potassium 4.8 mmol/L (3.5-5.1); Sodium Level 140 mmol/L (136-145)
== END ==
PROVIDERS: PCP Family Medicine; Referring Provider Urology; Visit Provider Urology
DX: R31.0 Gross hematuria (principal); C53.9 Malignant neoplasm of cervix uteri, unspecified
CPT/HCPCS: 36415; 80048; 85027

== ENCOUNTER 2020-12-17 15:32 | Inpatient (IN) | payer MEDICARE, OTHER, SELFPAY ==
[2020-11-13 08:31] VITALS: BMI 39.2
[2020-12-17] VITALS (12 sets, daily range): BP systolic 139–184; BP diastolic 73–88; PULSE 62–93; RESP 16–20; TEMP 36.6–37.1; O2SAT 94–100; BMI 39.6; BMI 39.7; BMI 39.4
--- NOTE | 2020-12-17 16:04 | ED.DCSUM_ITS ---
History of Present Illness Chief Complaint: Abn Labs Detail of Chief Complaint: Low blood counts Informant: Patient Onset: Weeks - 2 Context: Gradual Onset Timing: Continuous Quality: Malaise/weakness Location: All over Current Severity: Moderate Maximum Severity: Moderate Worsened by: Dyspnea worsened by exertion Relieved by: Rest Associated Symptoms: Short of breath without chest pain, increased swelling in legs Narrative: Patient states her doctor sent her in after doing some blood work today and it showed low hemoglobin at 6.4. She is on Xarelto for history of chronic atrial fibrillation, states for the last week or 2 off-and-on she has had melanotic stools, it is dark and tarry without blood, she is also on iron supplementation. She states she had a routine [employer]OP[employer] appointment last month, they did a pelvic exam on her and they were not concerned about the appearance, shortly after that she started having blood when she urinates and she is not sure if it is coming from her vagina, bladder, etc. She denies any blood in her stools just black. This is not every time. She has had some nausea but no abdominal pain or vomiting. She has had no presyncopal or syncopal episodes. She denies any urinary blood clots or urinary retention episodes. She denies any focal neurologic symptoms or confusion, just generally malaise/weak. Additionally, patient states that she stopped taking her Coreg and Lasix 3 weeks or so ago, mainly because she was tired of having to urinate all the time and now she regrets it because she is feeling poorly and her legs have been more swollen in that amount of time. - Past Medical History (1) Atherosclerotic heart disease of [place] coronary artery without angina pectoris Status: Chronic (2) Biventricular ICD (implantable cardioverter-defibrillator) in place Status: Chronic Comment: Biventricular ICD upgrade from Dual chamber PPM on 07/04/2020, requiring placement of epicardial left ventricular lead via left anterior minithoracotomy and connection of lead to PEDIATRICS TEACHER-D generator on 07/06/2020 (3) Chronic atrial fibrillation Status: Chronic (4) Chronic combined systolic and diastolic CHF (congestive heart failure) Status: Chronic (5) Essential (primary) hypertension Status: Chronic (6) Hyperlipidemia Status: Chronic (7) Left ventricular diastolic dysfunction Status: Chronic (8) Mitral papillary muscle dysfunction Status: Chronic (9) Monomorphic ventricular tachycardia Status: Chronic (10) Non-ischemic cardiomyopathy Status: Chronic (11) Paroxysmal atrial tachycardia Status: Chronic (12) Second degree atrioventricular block Status: Chronic (13) Secondary pulmonary arterial hypertension Status: Chronic (14) Malignant neoplasm of cervix uteri, unspecified Status: Resolved Comment: 2009:cervix remains. Had radiation and chemo Past Medical History - Allergies and Home Meds Allergies/Adverse Reactions: Allergies amlodipine besylate [From Norvasc] Allergy (Verified 12/17/20 16:38) cough cough amoxicillin [From Augmentin] Allergy (Verified 12/17/20 15:33) PT UNSURE OF REACTION clavulanic acid [From Augmentin] Allergy (Verified 12/17/20 15:33) PT UNSURE OF REACTION ibuprofen Allergy (Verified 12/17/20 16:38) Pt told not to take Iodinated Contrast Media [Iodinated Contrast Media - IV Dye] Allergy (Verified 12/17/20 15:33) Hives Iodine and Iodide Containing Produc Allergy (Verified 12/17/20 15:33) Rash rofecoxib [From Vioxx] Allergy (Verified 12/17/20 15:33) PT UNSURE OF REACTION codeine Adverse Reaction (Verified 12/17/20 16:38) Nausea/Vom/Diarrhea hydrochlorothiazide Adverse Reaction (Verified 12/17/20 15:33) hypokalemia envelope adhesive Adverse Reaction (Uncoded 12/17/20 15:33) Diarrhea Primary Care Physician: Norberto Shearer MD [Primary Care Provider] - Doctors: cards: Dr. Alejandro Surgical History: adenoidectomy, cholecystectomy, hysterectomy - Total abdominal., pacemaker implantation, tonsillectomy, - - Cardioversion. Smoking Status: Never smoker - Family History Maternal Family History: Family History (Last Reviewed 11/13/20 @ 08:40 by Cassandra Munguia) Mother Brain cancer Father Prostate cancer Family History: Reports: - - No coronary artery disease Review of Systems General: Reports: Malaise. Denies: Chills, Fever, Sweats Eyes: Denies: Visual changes - bilaterally, Diplopia ENT: Denies: Bilateral ear pain, Rhinorrhea, Sore throat Cardiovascular: Denies: Chest pain, Palpitations Respiratory: Reports: Dyspnea, Dyspnea on exertion. Denies: Cough, Sputum, Orthopnea Gastrointestinal: Reports: Nausea, Melena. Denies: Abdominal pain, Vomiting, Diarrhea, Hematochezia Genitourinary: Reports: Hematuria. Denies: Dysuria, Frequency Musculoskeletal: Reports: Swelling. Denies: Myalgias, Back pain, Extremity Pain Skin: Denies: Rash, Wounds Neurological: Denies: Headache, Weakness, Numbness Physical Exam Vital Signs/Narrative: Vital Signs Temp Pulse Resp BP Pulse Ox 12/17/20 15:34 97.8 F 80 18 148/85 H 100 Inital Vital Signs reviewed: Yes General: Well nourished, Well developed, Obese, No Acute Distress - Well- appearing, conversive in full sentences, pleasant Head: Normocephalic, Atraumatic Eyes: Perrl, EOMI ENT: Moist mucous membranes, No rhinorrhea Neck: Supple, Nontender Cardiovascular: Regular rate, Regular rhythm, No murmurs. Negative for: Tachycardia Respiratory: No distress, CTA bilaterally, Chest nontender Abdomen: Soft, Nontender, Nondistended, Normal bowel sounds Rectal: Nontender - Dark stool without gross blood Back: Nontender, Normal Inspection Extremities: Nontender, Edema - Plus both lower extremities to the knees, symmetric, no signs of cellulitis Skin: Normal color, No rash, No Trauma Neurological: Alert, Oriented x3, Cranial nerves II-XII grossly intact, Normal Strength, Normal Sensation Psychological: Normal affect, Normal Mood Diagnostic/Tx/Re-eval Chest X-Ray - ED: 1 View, Read by ED Physician - And confirmed by radiologist interpretation, No Acute Disease, Chronic Changes Labs (Last 48 Hours) 12/17/20 12/17/20 16:00 16:00 Troponin I < 0.015 Blood Type A POSITIVE Antibody Screen NEGATIVE Crossmatch See Detail Microbiology 12/17/20 16:04 Stool Stool Occult Blood ([facility]) - Final Occult Blood Positive Outpatient labs from earlier today noted: hemoglobin 6.4, BUN 19 and creatinine 1.38, both not dissimilar compared with prior - Rhythm Strip Rhythm Strip: Sinus Rhythm Rate: 65 Ectopy: None - EKG Initial EKG Interpretation: No Acute Injury Pattern, Paced - Medical Decision Making I reviewed the patient labs include a BUN of 19, hemoglobin 6.4. They were done today and I do not think they need to be repeated. Her last Xarelto pill was last night as she has not taken it yet today. She was advised not to for now. She was consented for blood, she has had a blood transfusion before, we discussed risks and benefits and she consents for getting transfusion, 2 units were ordered. Patient is on omeprazole at home, she was given IV Protonix 80 mg in addition to some IV fluids. Dr. Beth is willing to consult on this patient on the floor for EGD and request that she be n.p.o. after midnight tonight. Cardiac work-up shows no sign of acute injury, the urinalysis that was done earlier today shows blood and pyuria with indicators of infection. We will check to see if a culture is already pending if not we will add 1. I discussed with Dr. Sri Rhodes as well who will follow the patient while in the hospital. Discussed with hospitalist Dr. Denney. ED Disposition - Plan for ED Patient: Disposition: Acute Care Hospital [facility] Diagnosis: Upper GI bleeding, Acute blood loss anemia, Hematuria, Chronic atrial fibrillation, Chronic renal insufficiency Referrals: Norberto Shearer MD [Primary Care Provider] -
--- NOTE | 2020-12-17 16:06 | EKG12_ITS ---
Test Reason : ABNORMALLABS Blood Pressure : / mmHG Vent. Rate : 066 BPM Atrial Rate : 394 BPM P-R Int : 000 ms QRS Dur : 116 ms QT Int : 424 ms P-R-T Axes : 000 -08 191 degrees QTc Int : 444 ms Ventricular-paced rhythm Abnormal ECG Confirmed by CAMERON MCCARTHY, BERENICE ([id number]), purchase request editor PEGGY MELTON ([id number]) on 12/19/2020 12:43:31 PM Referred By: BB Confirmed By:BERENICE BARNES MD
--- NOTE | 2020-12-17 16:15 | RAD_ITS ---
STUDY: X-RAY CHEST REASON FOR EXAM: Female, 70 years old. Shortness of breath. Abnormal laboratories. TECHNIQUE: Single AP portable view of the chest. COMPARISON: 08/25/2019. FINDINGS: The lungs are clear and expanded. There is no evidence of mild vascular congestion seen on the prior study. There is no demonstrated pleural abnormality. Stable cardiomegaly. Stable cardiac pacemaker. Normal mediastinum and celia. Normal visualized pulmonary arteries. Normal visualized aortic arch and descending thoracic aorta. There are diffuse degenerative changes of the visualized thoracic spine. There is degenerative osteoarthritis of the bilateral shoulders. There is no demonstrated abnormality of the visualized soft tissue structures of the upper abdomen. RAD/Chest 1 View (Portable) IMPRESSION: Stable cardiomegaly and cardiac pacemaker. There is no acute pulmonary disease. Electronically Signed: Rajiv Gant DO at 16:33 EST Tel [phone], Service support ,
[2020-12-17] MEDS: Ondansetron 4 MG/2 ML Vial IV (16:24)
--- NOTE | 2020-12-17 17:51 | PCM.HP.STD ---
Problem List (1) Upper GI bleeding Status: Acute (2) Acute blood loss anemia Status: Acute (3) Hematuria Status: Acute (4) Biventricular ICD (implantable cardioverter-defibrillator) in place Status: Chronic Comment: Biventricular ICD upgrade from Dual chamber PPM on 07/04/2020, requiring placement of epicardial left ventricular lead via left anterior minithoracotomy and connection of lead to PURCHASING MANAGER-D generator on 07/06/2020 (5) Non-ischemic cardiomyopathy Status: Chronic (6) Chronic atrial fibrillation Status: Chronic (7) Atherosclerotic heart disease of [place] coronary artery without angina pectoris Status: Chronic (8) Chronic combined systolic and diastolic CHF (congestive heart failure) Status: Chronic (9) Essential (primary) hypertension Status: Chronic (10) Hyperlipidemia Status: Chronic Qualifiers: History of Present Illness Date of Admission: 12/17/20 Chief Complaint: Was referred to ED by PCP for abnormal labs. The patient is a 70 year old F with past medical history as mentioned above was referred to the emergency department by her PCP because of anemia. Today, patient went to see Dr. Enrique for hematuria that has been going on for 2 weeks. Patient stated that she has been having this hematuria for the last 2 weeks, intermittent, bright red blood, small, does amount, associated with intermittent nausea and without other associated symptoms, no aggravating or relieving factors. After she saw the urologist, she went to see her PCP who had blood work done today and she was found to have improved 6.4 g/dL. She was sent to the emergency department for evaluation and admission. Her other complaint is shortness of breath which has been going on for several days, mainly exertional, relieved with rest and no associated symptoms. She did report dark stool, no hematochezia. She had a history of chronic atrial fibrillation and she has been on Xarelto for anticoagulation. She will history of hypertension and has been uncontrolled with losartan and Coreg. She had a history of chronic anemia and her hemoglobin is been around 8 to 9 g/dL since July,. She has been on iron supplement. In the emergency department, her vital signs were stable. Her routine blood work was remarkable for hemoglobin of 6.4 g/dL, microcytic anemia, BUN of 19, creatinine is 1.38. EKG revealed paced rhythm. Troponin was negative. Chest x-ray showed no acute findings. She is being admitted for acute on chronic symptomatic anemia, melena/GI bleed as well as hematuria. Past Medical History Past Medical History (Chronic Problems): Chronic Problems (Last Updated 12/17/20 @ 17:[address] Sherron Denney MD) Chronic renal insufficiency (Chronic) Biventricular ICD (implantable cardioverter-defibrillator) in place (Chronic 07/04/20) Biventricular ICD upgrade from Dual chamber PPM on 07/04/2020, requiring placement of epicardial left ventricular lead via left anterior minithoracotomy and connection of lead to PURCHASING MANAGER-D generator on 07/06/2020 Non-ischemic cardiomyopathy (Chronic) Monomorphic ventricular tachycardia (Chronic) Second degree atrioventricular block (Chronic) Chronic atrial fibrillation (Chronic) Paroxysmal atrial tachycardia (Chronic) Atherosclerotic heart disease of [place] coronary artery without angina pectoris (Chronic) Chronic combined systolic and diastolic CHF (congestive heart failure) (Chronic) Left ventricular diastolic dysfunction (Chronic) Mitral papillary muscle dysfunction (Chronic) Secondary pulmonary arterial hypertension (Chronic) Essential (primary) hypertension (Chronic) Hyperlipidemia (Chronic) Malignant neoplasm of cervix uteri, unspecified (Chronic) 2010:cervix remains. Had radiation and chemo Medical History: Medical History (Last Updated 12/17/20 @ 17:[address] Sherron Denney MD) Non-ischemic cardiomyopathy (Chronic) I42.8 Monomorphic ventricular tachycardia (Chronic) I47.2 Second degree atrioventricular block (Chronic) I44.1 Chronic atrial fibrillation (Chronic) I48.2 Paroxysmal atrial tachycardia (Chronic) I47.1 Atherosclerotic heart disease of [place] coronary artery without angina pectoris (Chronic) I25.10 Chronic combined systolic and diastolic CHF (congestive heart failure) (Chronic) I50.42 Left ventricular diastolic dysfunction (Chronic) I51.9 Mitral papillary muscle dysfunction (Chronic) I51.89 Secondary pulmonary arterial hypertension (Chronic) I27.21 Essential (primary) hypertension (Chronic) I10 Hyperlipidemia (Chronic) E78.5 Malignant neoplasm of cervix uteri, unspecified (Chronic) C53.9 2010:cervix remains. Had radiation and chemo ASCUS of cervix with negative high risk HPV R87.610 needs repeat pap 10/2020 Crlow-ma-ogcppsd kidney injury N17.9, N18.9 Asthma J45.909 Body mass index (BMI) of 39.0 to 39.9 in adult Z68.39 COPD (chronic obstructive pulmonary disease) J44.9 COPD (chronic obstructive pulmonary disease) J44.9 GERD (gastroesophageal reflux disease) K21.9 GERD (gastroesophageal reflux disease) K21.9 Gout M10.9 IBS (irritable bowel syndrome) K58.9 Metabolic syndrome E88.81 Obesity E66.9 Osteoarthritis M19.90 Osteoporosis M81.0 Cervical cancer C53.9 2010:diagnosed after supracervical hysterectomy. Cervix remains(small/stenotic). Radiation and chemo. Debility R53.81 History of DVT (deep vein thrombosis) Z86.718 Impacted cerumen of both ears H61.23 NSVT (nonsustained ventricular tachycardia) I47.2 Sepsis with acute respiratory failure and septic shock Onset Date: 07/07/20 A41.9, R65.21, J96.00 Atrial fibrillation, persistent (Inactive) I48.1 Allergies amlodipine besylate [From Norvasc] Allergy (Verified 12/17/20 16:38) cough cough amoxicillin [From Augmentin] Allergy (Verified 12/17/20 15:33) PT UNSURE OF REACTION clavulanic acid [From Augmentin] Allergy (Verified 12/17/20 15:33) PT UNSURE OF REACTION ibuprofen Allergy (Verified 12/17/20 16:38) Pt told not to take Iodinated Contrast Media [Iodinated Contrast Media - IV Dye] Allergy (Verified 12/17/20 15:33) Hives Iodine and Iodide Containing Produc Allergy (Verified 12/17/20 15:33) Rash rofecoxib [From Vioxx] Allergy (Verified 12/17/20 15:33) PT UNSURE OF REACTION codeine Adverse Reaction (Verified 12/17/20 16:38) Nausea/Vom/Diarrhea hydrochlorothiazide Adverse Reaction (Verified 12/17/20 15:33) hypokalemia envelope adhesive Adverse Reaction (Uncoded 12/17/20 15:33) Diarrhea Home Medications: Ambulatory Orders Medication Instructions Recorded Allopurinol [Zyloprim] 300 mg PO DAILY 07/28/13 Omeprazole [Prilosec] 20 mg PO DAILY 07/28/13 Cholecalciferol (Vitamin D3) 2,000 unit PO DAILY 08/25/19 [D3-1999] Nortriptyline HCl [Pamelor] 30 mg PO QHS 08/25/19 albuterol sulfate 90 mcg/actuation 1 puff INHALATION Q6H PRN 05/10/20 aerosol inhaler denosumab 60 mg/mL subcutaneous 60 mg SC [id number] ml 05/10/20 syringe Acetaminophen [Tylenol] 1,000 mg PO Q6H PRN PRN tab 08/21/20 carvedilol 12.5 mg tablet 12.5 mg PO BID tab 09/06/20 furosemide 40 mg tablet 40 mg PO DAILY tab 09/06/20 pravastatin 40 mg tablet 40 mg PO QHS tab 09/06/20 sertraline 100 mg tablet 150 mg PO QHS 09/06/20 Iron Polysaccharide Complex 150 mg PO DAILY 12/17/20 [Ferrex 150] Losartan Potassium [Cozaar] 25 mg PO DAILY 12/17/20 Magnesium Oxide 400 mg PO DAILY 12/17/20 Potassium Chloride Oral Tablet 20 meq PO DAILY 12/17/20 [K-Dur] Rivaroxaban [Xarelto] 20 mg PO DAILY 12/17/20 Surgical History: Surgical History (Last Updated 12/08/20 @ 11:47 by Neda Hendrickson) Biventricular ICD (implantable cardioverter-defibrillator) in place (Chronic) Onset Date: 07/04/20 Z95.810 Biventricular ICD upgrade from Dual chamber PPM on 07/04/2020, requiring placement of epicardial left ventricular lead via left anterior minithoracotomy and connection of lead to PURCHASING MANAGER-D generator on 07/06/2020 H/O hysterectomy with oophorectomy cervix remains History of cardioversion Onset Date: 09/26/19 Z98.890 History of cholecystectomy Z90.49 History of electrophysiologic study Onset Date: 02/25/11 Z98.890 History of left heart catheterization Onset Date: 07/29/13 Z98.890 History of thoracotomy Onset Date: 07/06/20 Z98.890 Placement of epicardial left ventricular lead via left anterior minithoracotomy and connection of lead to PURCHASING MANAGER-D generator. History of tonsillectomy and adenoidectomy Z98.890 Presence of permanent cardiac pacemaker Onset Date: 02/25/11 Z95.0 Surgical History: adenoidectomy, cholecystectomy, hysterectomy - Total abdominal., pacemaker implantation, tonsillectomy, - - Cardioversion. Psychiatric History: No pertinent psych hx [facility] History: cervical cancer Lives: Spouse/ Significant Other Smoking Status: Never smoker Tobacco Use: Non-smoker - *Family History Maternal Family History: Family History (Last Reviewed 11/13/20 @ 08:40 by Cassandra Munguia) Mother Brain cancer Father Prostate cancer History Items: - - No coronary artery disease Review of Systems Constitutional: Denies: Anorexia, Chills, Fever, Weakness Eyes: Denies: Blurred vision, Double vision, Drainage, Redness HEENT: Denies: Difficulty Hearing, Ear Pain, Eye Pain, Nasal Congestion, Sore Throat Cardiovascular: Denies: Chest Pain, Chest Pressure, Edema, Heaviness, Palpitations, Syncope Respiratory: Reports: Shortness of breath upon exertion. Denies: Cough, Pleuritic Pain, Sputum production, Wheezing Gastrointestinal: Reports: Nausea, Melena. Denies: Abdominal Pain, Constipation, Diarrhea, Hematochezia, Vomiting Genitourinary: Reports: Hematuria. Denies: Dysuria, Frequency Musculoskeletal: Denies: Arm Pain, Back Pain, Foot Pain Skin: Denies: Dryness, Rash Neurological: Denies: Balance problems, Double vision, Change in Speech, Slurred speech, Confusion, Headaches, Incoordination Psychiatric: Reports: Depression. Denies: Anxiety Endocrine: Denies: Change in Body Habitus, Polydipsia, Polyuria VTE Information - Inpt Only VTE Present on Admission: No VTE Mechan Device Prophylaxis: SCD's VTE Pharm Prophylaxis ordered?: No Patient Problems: Active and Suspected Problems (Last Updated 12/17/20 @ 17:[address] Sherron Denney MD) Upper GI bleeding (Acute) Acute blood loss anemia (Acute) Hematuria (Acute) - Physical Exam Vitals/I&O's: Vital Signs Temp Pulse Resp BP Pulse Ox 98.2 F 79 18 158/74 H 100 12/17/20 17:39 12/17/20 17:39 12/17/20 17:39 12/17/20 17:39 12/17/20 17:39 Oxygen Delivery Method Room Air Weight: 224 lb Body Mass Index (BMI) 39.6 Intake and Output for Last 24 Hours 12/15/20 12/16/20 12/17/20 23:59 23:59 23:59 Intake Total 0 / 0 Balance 0 / 0 General: Alert, Oriented x3, Cooperative, No apparent distress HEENT: Atraumatic, PERRLA, EOMI, Normocephalic Oral: Moist Mucosa, No Gingival or Mucosal Lesions/ Ulcerations Neck: Supple, No JVD, Negative Carotid Bruits, Trachea Midline, Thyroid Normal Size and Texture Lungs: Clear to auscultation, Normal air movement, No rhonchi, No wheeze, No rales, Diminished Cardiovascular: Regular rate, Regular Rhythm, Normal S1, Normal S2, PMI Normal Abdomen: Bowel Sounds Present, Soft, Non Tender, Non-Distended, No Hepato-splenomegaly, Obese Extremities: No clubbing, No cyanosis, Edema Skin: No rashes, No breakdown Lymphatic: No Cervical, Supraclavicular, or Inguinal Adenopathy Neurological: Cranial nerves II-XII grossly intact, Motor Exam 5/5 strength throughout Psych/Mental Status: Normal Affect, Appropriate, Alert and oriented to time, place, person, mood and affect Microbiology Past 72 Hours 12/17/20 16:04 Stool Stool Occult Blood ([facility]) - Final Occult Blood Positive Laboratory Results CBC: Hemoglobin is 6.4, MCV 22.7, WBC is 9, platelet count is 391,000. BMP: Sodium 140, potassium 4.8, bicarb 22, BUN 19, creatinine is 1.38, glucose 106. Troponin is less than 0.015. 12/17/20 16:00: Blood Type A POSITIVE, Antibody Screen NEGATIVE, Crossmatch See Detail 12/17/20 16:00: Troponin I < 0.015 Clinical Impression(s) from Imaging Studies Chest X-Ray 12/17/20 16:15 IMPRESSION: Stable cardiomegaly and cardiac pacemaker. There is no acute pulmonary disease. Electronically Signed: Rajiv Gant DO at 16:33 EST Tel [phone], Service support , Assessment/Plan All Active Problems (Last Updated 12/17/20 @ 17:[address] Sherron Denney MD) Upper GI bleeding (Acute) Acute blood loss anemia (Acute) Hematuria (Acute) This is a 70 years old female patient was referred to the ED by her PCP because of hemoglobin of 6.4 g/dL, complaining of hematuria and she is being admitted for evaluation and treatment. #1 acute on chronic symptomatic anemia: It is microcytic anemia. Baseline hemoglobin is been around 8 to 9 g/dL over the last 2 years. Admission hemoglobin is 6.4 g/dL, it is microcytic anemia. It is secondary to hematuria in addition to GI bleed. Plan: Admit to PCU, cardiac monitoring, start IV Protonix, transfuse 2 units of packed RBCs, general surgery consult, urology consult, repeat CBC and BMP tomorrow morning, IV fluids, Tylenol as needed, Zofran as needed, check pro time and INR, PT OT evaluation and treatment. #2 melena/GI bleed: Stool was positive for occult blood. Patient reported dark stool, she has been on iron supplement. Plan: IV fluids, IV Protonix, blood transfusion as above, general surgery consult for upper EGD. #3 hematuria: Urinalysis reviewed. At this time, I doubt acute cystitis. Plan for urine culture, urology consult. #4 stage III chronic kidney disease: Baseline creatinine has been around 1.2 to 1.7 mg/dL. Admission creatinine is 1.38, stable at baseline. #5 chronic atrial fibrillation, status post pacemaker: Heart rate stable, continue Coreg for rate control, discontinue Xarelto for now. #6 chronic combined systolic and ascitic CHF/nonischemic cardiomyopathy: Status post ICD. Clinically stable, compensated. Continue Coreg and losartan as well as statins. #7 hypertension: Blood pressure stable, continue Coreg, losartan. #8 hyperlipidemia: Continue statins. #9 DVT prophylaxis: SCDs. This note was generated with [employer] dictation software. It may contain incorrect words, spelling, and punctuation that were not noted in checking the note before signing. Inpatient E&M: 27421 Init Hosp L3
[2020-12-17] MEDS: Acetaminophen 325 MG Tablet 650 MG PO (20:03)
[2020-12-17 20:32] LABS: International Normalized Ratio 1.5; Prothrombin Time (Protime)PT. 17.2 SECONDS (11.7-14.9)
[2020-12-17] MEDS: Nortriptyline 10 MG Capsule 30 MG PO (22:49)
[2020-12-17] MEDS: Carvedilol 12.5 MG Tablet PO (22:50)
[2020-12-17] MEDS: Sertraline 100 MG Tablet 150 MG PO (22:50)
[2020-12-17] MEDS: 0.9% Normal Saline 1,000 ML 75 ML IV (22:50)
[2020-12-17] MEDS: Pravastatin 40 MG Tablet PO (22:51)
[2020-12-18] VITALS (18 sets, daily range): BP systolic 82–139; BP diastolic 48–79; PULSE 59–71; RESP 16; TEMP 36.2–36.9; O2SAT 93–98; BMI 39.4
[2020-12-18 06:07] LABS: Absolute Lymphocyte Count 1.06 X10^3/uL (0.83-4.51); Absolute Neutrophil Count 4.3 X10^3/uL (2.0-7.7); Basophil# 0.02 X10^3/uL; Basophil% 0.3 % (0-1); Eosinophil# 0.06 X10^3/uL; Hematocrit 25.4 % (37-47); Hemoglobin 7.6 g/dL (12.0-15.0); Lymphocyte # 1.06 X10^3/ul (4.0); Lymphocyte % 18.1 % (19-41); Mean Corp Hgb Conc 29.9 g/dL (32-36); Mean Corpuscular Hgb 24.7 pg (27.0-32.0); Mean Corpuscular Volume 82.5 fL (81-99); Mean Platelet Vol. 9.9 fl (6.2-12.0); Monocyte% 6.8 % (0-10); NRBC Flagged by Analyzer 0.5 % (0-5); Neutrophil # 4.28 X10^3/uL (2.7-7.7); Neutrophil % 73.3 % (47-70); Platelet Count 271 K/mm3 (150-450); RBC Distribution Width CV 17.2 % (11.6-14.6); RBC Distribution Width SD 51.8 fl (35.1-43.9); Red Blood Count 3.08 M/mm3 (4.2-5.4); White Blood Count 5.9 K/mm3 (4.4-11.0)
[2020-12-18 06:11] LABS: Mucous, Urine 0 SEEN /hpf (<or=2+); Squamous Epithelial Cells - UA 0 SEEN /hpf (5-10)
[2020-12-18 06:21] LABS: Color, Urine Red (Yellow); Glucose, Dipstick Normal (Normal); Ketone-Dipstick Negative (Negative); Leukocyte Esterase-Dipstick 25 /ul (Negative); Nitrite-Dipstick Negative (Negative); Occult Blood-Urine 250 /ul (Negative); Protein-Dipstick 100 mg/dl (Negative); Urine Bilirubin Dipstick Negative (Negative); Urine Clarity Turbid (Clear); Urine Urobilinogen Normal (Normal)
[2020-12-18 06:38] LABS: Anion Gap 6 (5-15); BUN 18 mg/dL (7-18); BUN/Creat Ratio 14.6 RATIO (10-20); Calcium,Total 7.8 mg/dL (8.5-10.1); Chloride 113 mmol/L (98-107); Creatinine, Serum 1.23 mg/dL (0.55-1.02); EST Glomerular Filtration Rate 46 mL/min (>60); Est Glom Filt Rate - Afr Amer 56 mL/min (>60); Estimated Creatinine Clearance 35.71 ml/min; Glucose 88 mg/dL (74-106); Potassium 4.7 mmol/L (3.5-5.1); Sodium Level 141 mmol/L (136-145)
--- NOTE | 2020-12-18 06:41 | PCM.CONS.GEN ---
Problem List (1) Upper GI bleeding Status: Acute Reason for Consult Date of Consultation: 12/18/20 Reason for Consultation: Upper GI bleed History of Present Illness: The patient is a 70 year old F presented to the emergency room with anemia. I was consulted by the emergency room physician. The patient reports that she has had nausea and on and off black stools for a few weeks. She is on Xarelto for A. fib. This is not a new medication she is on a PPI at home. She does not have any abdominal pain. She reports never having an EGD in the past. She has never had a GI bleed in the past. Past Medical History Past Medical History (Chronic Problems): Chronic Problems (Last Updated 12/17/20 @ 18:[address] Sherron Denney MD) Chronic renal insufficiency (Chronic) Biventricular ICD (implantable cardioverter-defibrillator) in place (Chronic 07/04/20) Biventricular ICD upgrade from Dual chamber PPM on 07/04/2020, requiring placement of epicardial left ventricular lead via left anterior minithoracotomy and connection of lead to MOTORCYCLE FABRICATOR-D generator on 07/06/2020 Non-ischemic cardiomyopathy (Chronic) Monomorphic ventricular tachycardia (Chronic) Second degree atrioventricular block (Chronic) Chronic atrial fibrillation (Chronic) Paroxysmal atrial tachycardia (Chronic) Atherosclerotic heart disease of [place] coronary artery without angina pectoris (Chronic) Chronic combined systolic and diastolic CHF (congestive heart failure) (Chronic) Left ventricular diastolic dysfunction (Chronic) Mitral papillary muscle dysfunction (Chronic) Secondary pulmonary arterial hypertension (Chronic) Essential (primary) hypertension (Chronic) Hyperlipidemia (Chronic) Malignant neoplasm of cervix uteri, unspecified (Chronic) 2010:cervix remains. Had radiation and chemo Medical History: Medical History (Last Updated 12/17/20 @ 18:[address] Sherron Denney MD) Non-ischemic cardiomyopathy (Chronic) I42.8 Monomorphic ventricular tachycardia (Chronic) I47.2 Second degree atrioventricular block (Chronic) I44.1 Chronic atrial fibrillation (Chronic) I48.2 Paroxysmal atrial tachycardia (Chronic) I47.1 Atherosclerotic heart disease of [place] coronary artery without angina pectoris (Chronic) I25.10 Chronic combined systolic and diastolic CHF (congestive heart failure) (Chronic) I50.42 Left ventricular diastolic dysfunction (Chronic) I51.9 Mitral papillary muscle dysfunction (Chronic) I51.89 Secondary pulmonary arterial hypertension (Chronic) I27.21 Essential (primary) hypertension (Chronic) I10 Hyperlipidemia (Chronic) E78.5 Malignant neoplasm of cervix uteri, unspecified (Chronic) C53.9 2010:cervix remains. Had radiation and chemo ASCUS of cervix with negative high risk HPV R87.610 needs repeat pap 10/2020 Asthma J45.909 Body mass index (BMI) of 39.0 to 39.9 in adult Z68.39 COPD (chronic obstructive pulmonary disease) J44.9 GERD (gastroesophageal reflux disease) K21.9 Gout M10.9 IBS (irritable bowel syndrome) K58.9 Obesity E66.9 Osteoarthritis M19.90 Osteoporosis M81.0 Cervical cancer C53.9 2010:diagnosed after supracervical hysterectomy. Cervix remains(small/stenotic). Radiation and chemo. History of DVT (deep vein thrombosis) Z86.718 NSVT (nonsustained ventricular tachycardia) I47.2 Atrial fibrillation, persistent (Inactive) I48.1 Allergies amlodipine besylate [From Norvasc] Allergy (Verified 12/17/20 16:38) cough cough amoxicillin [From Augmentin] Allergy (Verified 12/17/20 15:33) PT UNSURE OF REACTION clavulanic acid [From Augmentin] Allergy (Verified 12/17/20 15:33) PT UNSURE OF REACTION ibuprofen Allergy (Verified 12/17/20 16:38) Pt told not to take Iodinated Contrast Media [Iodinated Contrast Media - IV Dye] Allergy (Verified 12/17/20 15:33) Hives Iodine and Iodide Containing Produc Allergy (Verified 12/17/20 15:33) Rash rofecoxib [From Vioxx] Allergy (Verified 12/17/20 15:33) PT UNSURE OF REACTION codeine Adverse Reaction (Verified 12/17/20 16:38) Nausea/Vom/Diarrhea hydrochlorothiazide Adverse Reaction (Verified 12/17/20 15:33) hypokalemia envelope adhesive Adverse Reaction (Uncoded 12/17/20 15:33) Diarrhea Home Medications: Ambulatory Orders Medication Instructions Recorded Allopurinol [Zyloprim] 300 mg PO DAILY 07/28/13 Omeprazole [Prilosec] 20 mg PO DAILY 07/28/13 Cholecalciferol (Vitamin D3) 2,000 unit PO DAILY 08/25/19 [D3-2000] Nortriptyline HCl [Pamelor] 30 mg PO QHS 08/25/19 albuterol sulfate 90 mcg/actuation 1 puff INHALATION Q6H PRN 05/10/20 aerosol inhaler denosumab 60 mg/mL subcutaneous 60 mg SC [id number] ml 05/10/20 syringe Acetaminophen [Tylenol] 1,000 mg PO Q6H PRN PRN tab 08/21/20 carvedilol 12.5 mg tablet 12.5 mg PO BID tab 09/06/20 furosemide 40 mg tablet 40 mg PO DAILY tab 09/06/20 pravastatin 40 mg tablet 40 mg PO QHS tab 09/06/20 sertraline 100 mg tablet 150 mg PO QHS 09/06/20 Iron Polysaccharide Complex 150 mg PO DAILY 12/17/20 [Ferrex 150] Losartan Potassium [Cozaar] 25 mg PO DAILY 12/17/20 Magnesium Oxide 400 mg PO DAILY 12/17/20 Potassium Chloride Oral Tablet 20 meq PO DAILY 12/17/20 [K-Dur] Rivaroxaban [Xarelto] 20 mg PO DAILY 12/17/20 Surgical History: Surgical History (Last Updated 12/08/20 @ 11:47 by Neda Hendrickson) Biventricular ICD (implantable cardioverter-defibrillator) in place (Chronic) Onset Date: 07/04/20 Z95.810 Biventricular ICD upgrade from Dual chamber PPM on 07/04/2020, requiring placement of epicardial left ventricular lead via left anterior minithoracotomy and connection of lead to MOTORCYCLE FABRICATOR-D generator on 07/06/2020 H/O hysterectomy with oophorectomy cervix remains History of cardioversion Onset Date: 09/26/19 Z98.890 History of cholecystectomy Z90.49 History of electrophysiologic study Onset Date: 02/25/11 Z98.890 History of left heart catheterization Onset Date: 07/29/13 Z98.890 History of thoracotomy Onset Date: 07/06/20 Z98.890 Placement of epicardial left ventricular lead via left anterior minithoracotomy and connection of lead to MOTORCYCLE FABRICATOR-D generator. History of tonsillectomy and adenoidectomy Z98.890 Presence of permanent cardiac pacemaker Onset Date: 02/25/11 Z95.0 Surgical History: adenoidectomy, cholecystectomy, hysterectomy - Total abdominal., pacemaker implantation, tonsillectomy, - - Cardioversion. 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 Denies: Abdominal Pain, Vomiting Genitourinary: Reports: Hematuria. Denies: Dysuria Musculoskeletal: Denies: Joint Tenderness Skin: Denies: Jaundice Neurological: Denies: Balance problems Hematologic/ Lymphatic: Reports: Anemia Patient Problems: Active and Suspected Problems (Last Updated 12/17/20 @ 18:[address] Sherron Denney MD) Upper GI bleeding (Acute) Acute blood loss anemia (Acute) Hematuria (Acute) - Physical Exam Vitals/I&O's: Vital Signs Temp Pulse Resp BP Pulse Ox 98.2 F 63 16 130/69 H 96 12/18/20 01:59 12/18/20 04:03 12/18/20 01:59 12/18/20 01:59 12/18/20 01:59 Oxygen Delivery Method Room Air Weight: 222 lb 8 oz Body Mass Index (BMI) 39.4 Intake and Output for Last 24 Hours 12/16/20 12/17/20 12/18/20 23:59 23:59 23:59 Intake Total 35 / 35 410 / 410 Balance 35 / 35 410 / 410 General: Alert, Oriented x3 HEENT: Atraumatic Lungs: Normal air movement Cardiovascular: Regular rate, Regular Rhythm Abdomen: Soft, Non Tender, Non-Distended Microbiology Past 72 Hours 12/17/20 16:04 Stool Stool Occult Blood ([place]) - Final Occult Blood Positive Laboratory Results 12/17/20 16:00: Blood Type A POSITIVE, Antibody Screen NEGATIVE, Crossmatch See Detail 12/17/20 16:00: Troponin I < 0.015 12/17/20 16:00: PT 17.2 H, INR 1.5 12/18/20 05:50: WBC 5.9, RBC 3.08 L, Hgb 7.6 L, Hct 25.4 L, MCV 82.5, MCH 24.7 L, MCHC 29.9 L D, RDW Std Deviation 51.8 H, RDW Coeff of Lily 17.2 H, Plt Count 271, MPV 9.9, Immature Gran % (Auto) 0.500, Neut % (Auto) 73.3 H, Lymph % (Auto) 18.1 L, [place] % (Auto) 6.8, Eos % (Auto) 1.0, Baso % (Auto) 0.3, Absolute Neuts (auto) 4.3, Absolute Lymphs (auto) 1.06, Nucleated RBC % 0.5 12/18/20 05:50: Sodium 141, Potassium 4.7, Chloride 113 H, Carbon Dioxide 22.0, Anion Gap 6, BUN 18, Creatinine 1.23 H, Estim Creat Clear Calc 35.71, Est GFR (MDRD) Af Amer 56 L, Est GFR (MDRD) Non-Af 46 L, BUN/Creatinine Ratio 14.6, Glucose 88, Calcium 7.8 L 12/18/20 06:00: Urine Color Pending, Urine Clarity Pending, Urine pH Pending, Ur Specific [place] Pending, Urine Protein Pending, Urine Glucose (UA) Pending, Urine Ketones Pending, Urine Occult Blood Pending, Urine Nitrite Pending, Urine Bilirubin Pending, Urine Urobilinogen Pending, Ur Leukocyte Esterase Pending, Urine RBC Pending, Urine WBC Pending, Ur Squamous Epith Cells Pending, Urine Bacteria Pending, Urine Mucus Pending Current Medications Acetaminophen (Acetaminophen 325 Mg Tablet) 650 mg PO Q6H PRN PRN PRN Reason: Pain Score 1-10/Temp > 100.7 F Last Admin: 12/17/20 20:03 Dose: 650 mg Documented by: Albuterol Sulfate (Albuterol 2.5 Mg/3 Ml Vial.Neb.) 2.5 mg INHALATION Q4H PRN PRN PRN Reason: Shortness of breath, wheezing Allopurinol (Allopurinol 300 Mg Tablet) 300 mg PO DAILY COUNT INCLUDES [facility] Carvedilol (Carvedilol 12.5 Mg Tablet) 12.5 mg PO BID COUNT INCLUDES THE [facility] Last Admin: 12/17/20 22:50 Dose: 12.5 mg Documented by: Pantoprazole Sodium 40 mg/ (Sodium Chloride) 110 mls @ 330 mls/hr IV Q12 COUNT INCLUDES THE [facility] Last Infusion: 12/18/20 00:09 Dose: Infused Documented by: Losartan Potassium (Losartan Potassium 25 Mg Tablet) 25 mg PO DAILY COUNT INCLUDES THE [facility] Nortriptyline HCl (Nortriptyline 10 Mg Capsule) 30 mg PO QHS COUNT INCLUDES THE [facility] Last Admin: 12/17/20 22:49 Dose: 30 mg Documented by: Ondansetron HCl (Ondansetron 4 Mg/2 Ml Vial) 4 mg IV Q8H PRN PRN PRN Reason: NAUSEA/VOMITING Polysaccharide Iron Complex (Iron Polysaccharide Complex 150 Mg Capsule) [facility] Pravastatin Sodium (Pravastatin 40 Mg Tablet) 40 mg PO QHS COUNT INCLUDES THE [facility] Last Admin: 12/17/20 22:51 Dose: 40 mg Documented by: Sertraline HCl (Sertraline 100 Mg Tablet) 150 mg PO QHS COUNT INCLUDES THE [facility] Last Admin: 12/17/20 22:50 Dose: 150 mg Documented by: Sodium Chloride (0.9% Saline Lock 10 Ml Syringe) 10 - 40 ml IV UD PRN PRN Reason: SALINE FLUSH Zolpidem Tartrate (Zolpidem Tartrate 5 Mg Tablet) 5 mg PO QHS PRN PRN PRN Reason: INSOMNIA Assessment/Plan All Active Problems (Last Updated 12/17/20 @ 18:[address] Sherron Denney MD) Upper GI bleeding (Acute) Acute blood loss anemia (Acute) Hematuria (Acute) 70-year-old female with upper GI bleed 1. Patient has been having on and off melanotic stools. She is on Xarelto at home but she is also on a PPI. I recommend an EGD for evaluation. The patient is n.p.o. currently. 2. I explained endoscopy in detail to the patient. I explained the risks including but not limited to stroke or heart attack with anesthesia, perforation of the GI tract, bleeding, infection. I explained that any of these could necessitate further emergency surgery. The patient understands and all questions were answered sufficiently. The patient wishes to proceed with procedure. 3. I will order a Covid rapid test and plan for EGD later this morning. Rodolfo Beth MD Pager: [facility] [address] [place] [address], [address] [place] [address] Office:
[2020-12-18 07:36] LABS: Bacteria 3+ /hpf (None Seen); White Blood Cells 0-5 SEEN /hpf (0-5)
[2020-12-18 07:37] LABS: Red Blood Cells-Urine > 100 SEEN /hpf (0-5)
--- NOTE | 2020-12-18 07:57 | PN_ITS ---
Patient Problems: Active and Suspected Problems (Last Reviewed 12/18/20 @ 09:[address] Carmen Enrique MD) Upper GI bleeding (Acute) Acute blood loss anemia (Acute) Hematuria (Acute) Reason for Visit: Follow-up for acute anemia secondary to hematuria. Objective: Patient has 2 units of PRBC transfusion. In the morning hemoglobin 7.6. Admitting hemoglobin was 6.4 mg/dL. Admitted with ongoing 2 weeks of hematuria and dark black, melanotic stool. On Xarelto for atrial fibrillation. On PPI at home. Never had EGD. Denies previous history of GI bleed Seen by surgeon. EGD planned. Physical exam General: Alert, Oriented x3, Cooperative HEENT: Atraumatic, PERRLA, EOMI, Normocephalic Oral: No Gingival or Mucosal Lesions/ Ulcerations Neck: Supple, No JVD, Negative Carotid Bruits Lungs: Air entry diminished in bilateral lung bases. No crepitation/rhonchi Cardiovascular: Regular rate, Regular Rhythm, Normal S1, Normal S2, No murmurs Abdomen: Bowel Sounds Present, Soft, Non Tender, Non-Distended : On CBI. Patient still has hematuria although blood is diluted. No renal angle tenderness. No suprapubic tenderness. Extremities: No edema, Capillary Refill Less than 3 Seconds Skin: No rashes, No breakdown Musculoskeletal: No Tenderness to Palpation of Joints or Extremities Neurological: Cranial nerves II-XII grossly intact, Deep Tendon Reflexes 2+/4 and Symmetrical, Neuro grossly intact Psych/Mental Status: Normal Affect, Appropriate. Vitals/I&O's: Vital Signs Temp Pulse Resp BP Pulse Ox 98.2 F 63 16 130/69 H 96 12/18/20 01:59 12/18/20 04:03 12/18/20 01:59 12/18/20 01:59 12/18/20 01:59 Oxygen Delivery Method Room Air Weight: 222 lb 8 oz Body Mass Index (BMI) 39.4 Intake and Output for Last 24 Hours 12/16/20 12/17/20 12/18/20 23:59 23:59 23:59 Intake Total 35 / 35 410 / 410 Balance 35 / 35 410 / 410 Microbiology Past 72 Hours 12/18/20 07:00 Mucosa - Nose SARS-CoV-2 Antigen (Rapid) - Final 12/17/20 16:04 Stool Stool Occult Blood ([place]) - Final Occult Blood Positive Laboratory Results 12/17/20 16:00: Blood Type A POSITIVE, Antibody Screen NEGATIVE, Crossmatch See Detail 12/17/20 16:00: Troponin I < 0.015 12/17/20 16:00: PT 17.2 H, INR 1.5 12/18/20 05:50: WBC 5.9, RBC 3.08 L, Hgb 7.6 L, Hct 25.4 L, MCV 82.5, MCH 24.7 L , MCHC 29.9 L D, RDW Std Deviation 51.8 H, RDW Coeff of Lily 17.2 H, Plt Count 271, MPV 9.9, Immature Gran % (Auto) 0.500, Neut % (Auto) 73.3 H, Lymph % (Auto) 18.1 L, [place] % (Auto) 6.8, Eos % (Auto) 1.0, Baso % (Auto) 0.3, Absolute Neuts (auto) 4.3, Absolute Lymphs (auto) 1.06, Nucleated RBC % 0.5 12/18/20 05:50: Sodium 141, Potassium 4.7, Chloride 113 H, Carbon Dioxide 22.0, Anion Gap 6, BUN 18, Creatinine 1.23 H, Estim Creat Clear Calc 35.71, Est GFR (MDRD) Af Amer 56 L, Est GFR (MDRD) Non-Af 46 L, BUN/Creatinine Ratio 14.6, Glucose 88, Calcium 7.8 L 12/18/20 06:00: Urine Color Red, Urine Clarity Turbid, Urine pH 6.0, Ur Specific [place] 1.020, Urine Protein 100 H, Urine Glucose (UA) Normal, Urine Ketones Negative, Urine Occult Blood 250 H, Urine Nitrite Negative, Urine Bilirubin Negative, Urine Urobilinogen Normal, Ur Leukocyte Esterase 25 H, Urine RBC > 100 SEEN, Urine WBC 0-5 SEEN, Ur Squamous Epith Cells 0 SEEN, Urine Bacteria 3+, Urine Mucus 0 SEEN Current Medications Acetaminophen (Acetaminophen 325 Mg Tablet) 650 mg PO Q6H PRN PRN PRN Reason: Pain Score 1-10/Temp > 100.7 F Last Admin: 12/17/20 20:03 Dose: 650 mg Documented by: Albuterol Sulfate (Albuterol 2.5 Mg/3 Ml Vial.Neb.) 2.5 mg INHALATION Q4H PRN PRN PRN Reason: Shortness of breath, wheezing Allopurinol (Allopurinol 300 Mg Tablet) 300 mg PO DAILY [facility] Carvedilol (Carvedilol 12.5 Mg Tablet) 12.5 mg PO BID [facility] Last Admin: 12/17/20 22:50 Dose: 12.5 mg Documented by: Pantoprazole Sodium 40 mg/ (Sodium Chloride) 110 mls @ 330 mls/hr IV Q12 [facility] Last Infusion: 12/18/20 00:09 Dose: Infused Documented by: Losartan Potassium (Losartan Potassium 25 Mg Tablet) 25 mg PO DAILY [facility] Nortriptyline HCl (Nortriptyline 10 Mg Capsule) 30 mg PO QHS [facility] Last Admin: 12/17/20 22:49 Dose: 30 mg Documented by: Ondansetron HCl (Ondansetron 4 Mg/2 Ml Vial) 4 mg IV Q8H PRN PRN PRN Reason: NAUSEA/VOMITING Polysaccharide Iron Complex (Iron Polysaccharide Complex 150 Mg Capsule) [facility] Pravastatin Sodium (Pravastatin 40 Mg Tablet) 40 mg PO QHS [facility] Last Admin: 12/17/20 22:51 Dose: 40 mg Documented by: Sertraline HCl (Sertraline 100 Mg Tablet) 150 mg PO QHS [facility] Last Admin: 12/17/20 22:50 Dose: 150 mg Documented by: Sodium Chloride (0.9% Saline Lock 10 Ml Syringe) 10 - 40 ml IV UD PRN PRN Reason: SALINE FLUSH Zolpidem Tartrate (Zolpidem Tartrate 5 Mg Tablet) 5 mg PO QHS PRN PRN PRN Reason: INSOMNIA STROKE Vital Signs/Narrative: Vital Signs Pulse 12/18/20 04:03 63 Medical Necessity - Tobacco Use Smoking Status: Never smoker Tobacco Use: Non-smoker Assessment/Plan All Active Problems (Last Reviewed 12/18/20 @ 09:[address] Carmen Enrique MD) Upper GI bleeding (Acute) Acute blood loss anemia (Acute) Hematuria (Acute) This is a 70 years old female patient was referred to the ED by her PCP because of hemoglobin of 6.4 g/dL, complaining of hematuria and she is being admitted for evaluation and treatment. #1 acute on chronic symptomatic, microcytic hypochromic anemia from hematuria: Patient is on continuous bladder irrigation. Had 2 units of PRBC transfusion. Had baseline hemoglobin between 8 to 9 g over last 2 years, admitted with hemog lobin 6.4. Last hemoglobin 7.6. #2 complain of dark/melanotic stool: Stool was positive for occult blood. Patient had EGD which showed normal esophagus, stomach and duodenum. Discontinue IV Protonix. Continue Protonix 40 mg p.o. once daily from tomorrow a.m. Discussed with the surgeon. #3 hematuria, exact anatomic location unclear: Urinalysis reviewed. Urine culture shows no growth. UA RBC more than 100 cells, 3+ bacteria, WBC 0-5 cells, nitrite negative and LE 25. Plan for cystoscopy. Seen by Dr. Enrique #4 stage III chronic kidney disease: Baseline creatinine has been around 1.2 to 1.7 mg/dL. Admission creatinine is 1.38, stable at baseline. #5 chronic atrial fibrillation, status post pacemaker: Heart rate stable, continue Coreg for rate control, Xarelto discontinued. #6 chronic combined systolic and ascitic CHF/nonischemic cardiomyopathy: Status post ICD. Clinically stable, compensated. Continue Coreg and losartan as well as statins. #7 hypertension: Blood pressure stable, continue Coreg, losartan. #8 hyperlipidemia: Continue statins. #9 DVT prophylaxis: SCDs. Inpatient E&M: 41418 Subs Hosp L2
[2020-12-18 08:59] LABS: Thyroid Stim Hormone (TSH) 2.51 uIU/mL (0.358-3.74)
[2020-12-18 09:16] LABS: Partial Thromboplast Time 30.9 Seconds (24.1-36.2)
--- NOTE | 2020-12-18 09:27 | CT_ITS ---
STUDY: CT ABDOMEN AND PELVIS WITH AND WITHOUT CONTRAST REASON FOR EXAM: Female, 70 years old. Gross hematuria RADIATION DOSAGE (If Supplied By Facility): CTDIvol = ( 26.04 ) mGy, DLP = ( 3994.21 ) mGycm TECHNIQUE: Transaxial images were obtained from the dome of the diaphragm to the symphysis pubis without oral contrast. 100 mL of IV ISOVUE-300 was administered. Sagittal and coronal images were reconstructed. Individualized dose optimization techniques were used for this CT. COMPARISON: CT abdomen and pelvis without contrast 08/13/2011. FINDINGS: The visualized lung bases are unremarkable. Cardiomegaly. Pacing leads are in the right atrium and right ventricle. Normal pericardium. Normal liver. Postsurgical absence of the gallbladder. Normal spleen. Normal pancreas. Normal bilateral adrenal glands. Right kidney: Small nonenhancing hypodense cysts. No stones and no hydronephrosis. Left kidney: Small hypodense cysts. No stones or hydronephrosis. Normal visualized stomach. Normal small intestine. Multiple small diverticula along the sigmoid colon without diverticulitis. Few diverticula in the descending colon without diverticulitis. The appendix is visualized and appears normal. Calcified plaques along the abdominal aorta and iliac arteries. No abdominal aortic aneurysm. Normal inferior vena cava. Normal retroperitoneum. Indwelling AGUILERA catheter inside the empty urinary bladder. Postsurgical absence of the uterus. Anterior abdominal wall umbilical herniation of omental fat but no herniated bowel loop. Degenerative disc space height narrowing with degenerative vacuum phenomenon and endplate sclerosis at L3-L4, L4-L5 and L5-S1 disc space levels. No acute osseous abnormality. CT/CT Abd/Pelvis W/WO Contrast IMPRESSION: 1. No CT evidence of stones in the kidneys, ureters and the empty urinary bladder. 2. Indwelling AGUILERA catheter inside the empty urinary bladder. 3. Nonenhancing cysts in both kidneys. 4. Multiple diverticula along the sigmoid colon and fever diverticula in the descending colon. No diverticulitis. 5. Anterior umbilical wall herniation of omental fat but no herniated bowel loop. 6. Bilateral renal cysts are the only new findings 08/13/2011. Electronically Signed: Mehran Ayon MD at 11:01 EST , Service support ,
--- NOTE | 2020-12-18 09:30 | CYSPIN_PTH ---
PATIENT: TRINIDAD LOPEZ LOC: MS3 U#:[id number] AGE/SX: 70/F ROOM: NH321 RE12/17/[address]: Dr. Shiv Rodarte MD : 1950 BED: 1 DIS: 12/19/2020 SPEC #: [id number] RECD: 12/18/20 12:44 STATUS: VIVIANA REValerie #: [id number] KARTHIK: 12/18/20 09:[address]: Shiv Rodarte DEPT: CYTOLOGY RECD BY: Meredith Adams ENTERED: 12/18/20 12:49 SP TYPE: CYSPIN FL OTHR DR: MD Dr. Sherron Lozano MD Dr. Holly Wyneski, MD Dr. Paul Nielsen, MD Tissues: Urine Procedures: Special Stain Group II Cytospin Fluid HEADER OPERATION: Not noted PRE-OP DIAGNOSIS: Hematuria TISSUE SUBMITTED: Urine for cytology DIAGNOSIS CYTOLOGY Urine for cytology (cytospin): Negative for malignant cells. Bloody specimen. See comment. ROVERTO:alisa 12/19/2020 COMMENT Clinical correlation and appropriate follow up are necessary. CYTOLOGY STUDY Slides are reviewed. CYTOLOGY GROSS Received is 6 ml of red cloudy fluid labeled with the patient's name and and designated per the requisition as urine. Submitted for cytology preparation. / alisa 12/18/2020 TC:5 CPT: 52164
--- NOTE | 2020-12-18 09:32 | PCM.CONS.GEN ---
Problem List (1) Hematuria Status: Acute (2) Acute blood loss anemia Status: Acute Reason for Consult Date of Consultation: 12/18/20 Reason for Consultation: gross hematuria History of Present Illness: The patient is a 70 year old F [who presented to the office yesterday with gross hematuria. She was sent to the emergency department after laboratory studies revealed significant blood loss anemia. She has a significant history of cervical cancer for which she is status post surgical intervention, chemotherapy and radiation in 2009. She has had intermittent dysuria with gross hematuria for approximately 1 month. At first she passed clots and was not certain whether they were from her vagina or the bladder. As time progressed the blood was only visible during voiding. She has not been compliant with medical evaluation, and medical treatment. She decided to stop her diuretics and cardiac medications secondary to side effects. This was done without PCP knowledge. She has a history of pacemaker and defibrillator insertion in the fall which was complicated with a 10-day ICU stay with intubation and sepsis. No history of kidney stones, renal or bladder cancers. She is on Xarelto at home. Past Medical History Past Medical History (Chronic Problems): Chronic Problems (Last Reviewed 12/18/20 @ 09:[address] Carmen Enrique MD) Chronic renal insufficiency (Chronic) Biventricular ICD (implantable cardioverter-defibrillator) in place (Chronic 07/04/20) Biventricular ICD upgrade from Dual chamber PPM on 07/04/2020, requiring placement of epicardial left ventricular lead via left anterior minithoracotomy and connection of lead to GALLERY OR MUSEUM ATTENDANT-D generator on 07/06/2020 Non-ischemic cardiomyopathy (Chronic) Monomorphic ventricular tachycardia (Chronic) Second degree atrioventricular block (Chronic) Chronic atrial fibrillation (Chronic) Paroxysmal atrial tachycardia (Chronic) Atherosclerotic heart disease of [place] coronary artery without angina pectoris (Chronic) Chronic combined systolic and diastolic CHF (congestive heart failure) (Chronic) Left ventricular diastolic dysfunction (Chronic) Mitral papillary muscle dysfunction (Chronic) Secondary pulmonary arterial hypertension (Chronic) Essential (primary) hypertension (Chronic) Hyperlipidemia (Chronic) Malignant neoplasm of cervix uteri, unspecified (Chronic) 2010:cervix remains. Had radiation and chemo Medical History: Medical History (Last Reviewed 12/18/20 @ 09:[address] Carmen Enrique MD) Non-ischemic cardiomyopathy (Chronic) I42.8 Monomorphic ventricular tachycardia (Chronic) I47.2 Second degree atrioventricular block (Chronic) I44.1 Chronic atrial fibrillation (Chronic) I48.2 Paroxysmal atrial tachycardia (Chronic) I47.1 Atherosclerotic heart disease of [place] coronary artery without angina pectoris (Chronic) I25.10 Chronic combined systolic and diastolic CHF (congestive heart failure) (Chronic) I50.42 Left ventricular diastolic dysfunction (Chronic) I51.9 Mitral papillary muscle dysfunction (Chronic) I51.89 Secondary pulmonary arterial hypertension (Chronic) I27.21 Essential (primary) hypertension (Chronic) I10 Hyperlipidemia (Chronic) E78.5 Malignant neoplasm of cervix uteri, unspecified (Chronic) C53.9 2010:cervix remains. Had radiation and chemo ASCUS of cervix with negative high risk HPV R87.610 needs repeat pap 10/2020 Asthma J45.909 Body mass index (BMI) of 39.0 to 39.9 in adult Z68.39 COPD (chronic obstructive pulmonary disease) J44.9 GERD (gastroesophageal reflux disease) K21.9 Gout M10.9 IBS (irritable bowel syndrome) K58.9 Obesity E66.9 Osteoarthritis M19.90 Osteoporosis M81.0 Cervical cancer C53.9 2010:diagnosed after supracervical hysterectomy. Cervix remains(small/stenotic). Radiation and chemo. History of DVT (deep vein thrombosis) Z86.718 NSVT (nonsustained ventricular tachycardia) I47.2 Atrial fibrillation, persistent (Inactive) I48.1 Allergies amlodipine besylate [From Norvasc] Allergy (Verified 12/17/20 16:38) cough cough amoxicillin [From Augmentin] Allergy (Verified 12/17/20 15:33) PT UNSURE OF REACTION clavulanic acid [From Augmentin] Allergy (Verified 12/17/20 15:33) PT UNSURE OF REACTION ibuprofen Allergy (Verified 12/17/20 16:38) Pt told not to take Iodinated Contrast Media [Iodinated Contrast Media - IV Dye] Allergy (Verified 12/17/20 15:33) Hives Iodine and Iodide Containing Produc Allergy (Verified 12/17/20 15:33) Rash rofecoxib [From Vioxx] Allergy (Verified 12/17/20 15:33) PT UNSURE OF REACTION codeine Adverse Reaction (Verified 12/17/20 16:38) Nausea/Vom/Diarrhea hydrochlorothiazide Adverse Reaction (Verified 12/17/20 15:33) hypokalemia envelope adhesive Adverse Reaction (Uncoded 12/17/20 15:33) Diarrhea Home Medications: Ambulatory Orders Medication Instructions Recorded Allopurinol [Zyloprim] 300 mg PO DAILY 07/28/13 Omeprazole [Prilosec] 20 mg PO DAILY 07/28/13 Cholecalciferol (Vitamin D3) 2,000 unit PO DAILY 08/25/19 [D3-2000] Nortriptyline HCl [Pamelor] 30 mg PO QHS 08/25/19 albuterol sulfate 90 mcg/actuation 1 puff INHALATION Q6H PRN 05/10/20 aerosol inhaler denosumab 60 mg/mL subcutaneous 60 mg SC [id number] 05/10/20 syringe Acetaminophen [Tylenol] 1,000 mg PO Q6H PRN PRN tab 08/21/20 carvedilol 12.5 mg tablet 12.5 mg PO BID tab 09/06/20 furosemide 40 mg tablet 40 mg PO DAILY tab 09/06/20 pravastatin 40 mg tablet 40 mg PO QHS tab 09/06/20 sertraline 100 mg tablet 150 mg PO QHS 09/06/20 Iron Polysaccharide Complex 150 mg PO DAILY 12/17/20 [Ferrex 150] Losartan Potassium [Cozaar] 25 mg PO DAILY 12/17/20 Magnesium Oxide 400 mg PO DAILY 12/17/20 Potassium Chloride Oral Tablet 20 meq PO DAILY 12/17/20 [K-Dur] Rivaroxaban [Xarelto] 20 mg PO DAILY 12/17/20 Surgical History: Surgical History (Last Reviewed 12/18/20 @ 09:[address] Carmen Enrique MD) Biventricular ICD (implantable cardioverter-defibrillator) in place (Chronic) Onset Date: 07/04/20 Z95.810 Biventricular ICD upgrade from Dual chamber PPM on 07/04/2020, requiring placement of epicardial left ventricular lead via left anterior minithoracotomy and connection of lead to GALLERY OR MUSEUM ATTENDANT-D generator on 07/06/2020 H/O hysterectomy with oophorectomy cervix remains History of cardioversion Onset Date: 09/26/19 Z98.890 History of cholecystectomy Z90.49 History of electrophysiologic study Onset Date: 02/25/11 Z98.890 History of left heart catheterization Onset Date: 07/29/13 Z98.890 History of thoracotomy Onset Date: 07/06/20 Z98.890 Placement of epicardial left ventricular lead via left anterior minithoracotomy and connection of lead to GALLERY OR MUSEUM ATTENDANT-D generator. History of tonsillectomy and adenoidectomy Z98.890 Presence of permanent cardiac pacemaker Onset Date: 02/25/11 Z95.0 Surgical History: adenoidectomy, cholecystectomy, hysterectomy - Total abdominal., pacemaker implantation, tonsillectomy, - - Cardioversion. Psychiatric History: No pertinent psych hx [employer] ENG[employer] History: cervical cancer Lives: Spouse/ Significant Other Smoking Status: Never smoker Tobacco Use: Non-smoker - *Family History Maternal Family History: Family History (Last Reviewed 12/18/20 @ 09:[address] Carmen Enrique MD) Mother Brain cancer Father Prostate cancer History Items: - - No coronary artery disease Review of Systems Constitutional: Denies: Anorexia, Chills, Fever Eyes: Denies: Vision Change HEENT: Denies: Visual Changes Cardiovascular: Denies: Chest Pain, Chest Pressure Respiratory: Denies: Cough Gastrointestinal: Denies: Abdominal Pain Genitourinary: Reports: Hematuria, Urgency. Denies: Dysuria, Hesitancy, Retention Gynecological: Denies: Breast symptoms Musculoskeletal: Denies: Muscle pain Skin: Denies: Wounds Neurological: Denies: Change in Speech Endocrine: Denies: Change in Body Habitus Patient Problems: Active and Suspected Problems (Last Reviewed 12/18/20 @ 09:[address] Carmen Enrique MD) Upper GI bleeding (Acute) Acute blood loss anemia (Acute) Hematuria (Acute) Objective: A pelvic examination was performed in the office yesterday revealing vaginal stenosis and atrophy with no evidence of etiology for vaginal bleeding. On straight cath evaluation, there was a residual 15 cc of grossly bloody urine which was sent for evaluation of both culture and cytology. The culture should be back tomorrow. - Physical Exam Vitals/I&O's: Vital Signs Temp Pulse Resp BP Pulse Ox 98 F 64 16 139/68 H 94 12/18/20 08:02 12/18/20 08:02 12/18/20 08:02 12/18/20 08:02 12/18/20 08:02 Oxygen Delivery Method Room Air Weight: 100.924 kg Body Mass Index (BMI) 39.4 Intake and Output for Last 24 Hours 12/16/20 12/17/20 12/18/20 23:59 23:59 23:59 Intake Total 410 / 410 Balance 410 / 410 General: Alert, Oriented x3, Cooperative, No apparent distress HEENT: Atraumatic, Normocephalic Oral: Moist Mucosa Neck: Supple Lungs: Normal air movement Cardiovascular: Regular Rhythm Abdomen: Soft, Non Tender, Non-Distended, Obese Extremities: No Calf Tenderness Skin: No rashes Musculoskeletal: No Muscle Wasting Neurological: Cranial nerves II-XII grossly intact, Neuro grossly intact Psych/Mental Status: Normal Affect, Alert and oriented to time, place, person, mood and affect Microbiology Past 72 Hours 12/18/20 07:00 Mucosa - Nose SARS-CoV-2 Antigen (Rapid) - Final 12/17/20 16:04 Stool Stool Occult Blood ([place]) - Final Occult Blood Positive Laboratory Results 12/17/20 16:00: Blood Type A POSITIVE, Antibody Screen NEGATIVE, Crossmatch See Detail 12/17/20 16:00: Troponin I < 0.015 12/17/20 16:00: PT 17.2 H, INR 1.5 12/18/20 05:50: WBC 5.9, RBC 3.08 L, Hgb 7.6 L, Hct 25.4 L, MCV 82.5, MCH 24.7 L, MCHC 29.9 L D, RDW Std Deviation 51.8 H, RDW Coeff of Lily 17.2 H, Plt Count 271, MPV 9.9, Immature Gran % (Auto) 0.500, Neut % (Auto) 73.3 H, Lymph % (Auto) 18.1 L, [place] % (Auto) 6.8, Eos % (Auto) 1.0, Baso % (Auto) 0.3, Absolute Neuts (auto) 4.3, Absolute Lymphs (auto) 1.06, Nucleated RBC % 0.5 12/18/20 05:50: Sodium 141, Potassium 4.7, Chloride 113 H, Carbon Dioxide 22.0, Anion Gap 6, BUN 18, Creatinine 1.23 H, Estim Creat Clear Calc 35.71, Est GFR (MDRD) Af Amer 56 L, Est GFR (MDRD) Non-Af 46 L, BUN/Creatinine Ratio 14.6, Glucose 88, Calcium 7.8 L 12/18/20 05:50: APTT 30.9 12/18/20 05:50: TSH 2.51 12/18/20 06:00: Urine Color Red, Urine Clarity Turbid, Urine pH 6.0, Ur Specific [place] 1.020, Urine Protein 100 H, Urine Glucose (UA) Normal, Urine Ketones Negative, Urine Occult Blood 250 H, Urine Nitrite Negative, Urine Bilirubin Negative, Urine Urobilinogen Normal, Ur Leukocyte Esterase 25 H, Urine RBC > 100 SEEN, Urine WBC 0-5 SEEN, Ur Squamous Epith Cells 0 SEEN, Urine Bacteria 3+, Urine Mucus 0 SEEN Current Medications Acetaminophen (Acetaminophen 325 Mg Tablet) 650 mg PO Q6H PRN PRN PRN Reason: Pain Score 1-10/Temp > 100.7 F Last Admin: 12/17/20 20:03 Dose: 650 mg Documented by: Albuterol Sulfate (Albuterol 2.5 Mg/3 Ml Vial.Neb.) 2.5 mg INHALATION Q4H PRN PRN PRN Reason: Shortness of breath, wheezing Allopurinol (Allopurinol 300 Mg Tablet) 300 mg PO DAILY [facility] Carvedilol (Carvedilol 12.5 Mg Tablet) 12.5 mg PO BID [facility] Last Admin: 12/17/20 22:50 Dose: 12.5 mg Documented by: Pantoprazole Sodium 40 mg/ (Sodium Chloride) 110 mls @ 330 mls/hr IV Q12 [facility] Last Infusion: 12/18/20 00:09 Dose: Infused Documented by: Cefazolin Sodium () 1 gm in 50 mls @ 100 mls/hr IV Q8 [facility] Iopamidol (Contrast Allergy Safety Check) 0 ml IV X1 [facility] Losartan Potassium (Losartan Potassium 25 Mg Tablet) 25 mg PO DAILY [facility] Nortriptyline HCl (Nortriptyline 10 Mg Capsule) 30 mg PO QHS [facility] Last Admin: 12/17/20 22:49 Dose: 30 mg Documented by: Ondansetron HCl (Ondansetron 4 Mg/2 Ml Vial) 4 mg IV Q8H PRN PRN PRN Reason: NAUSEA/VOMITING Polysaccharide Iron Complex (Iron Polysaccharide Complex 150 Mg Capsule) [facility] Pravastatin Sodium (Pravastatin 40 Mg Tablet) 40 mg PO QHS [facility] Last Admin: 12/17/20 22:51 Dose: 40 mg Documented by: Sertraline HCl (Sertraline 100 Mg Tablet) 150 mg PO QHS [facility] Last Admin: 12/17/20 22:50 Dose: 150 mg Documented by: Sodium Chloride (0.9% Saline Lock 10 Ml Syringe) 10 - 40 ml IV UD PRN PRN Reason: SALINE FLUSH Zolpidem Tartrate (Zolpidem Tartrate 5 Mg Tablet) 5 mg PO QHS PRN PRN PRN Reason: INSOMNIA Assessment/Plan All Active Problems (Last Reviewed 12/18/20 @ 09:[address] Carmen Enrique MD) Upper GI bleeding (Acute) Acute blood loss anemia (Acute) Hematuria (Acute) 24 Fr 3-way ortiz urine cytology and culture continuous bladder irrigation CT Urogram antibiotics during CBI supportive care will need cystoscopy, await culture
[2020-12-18 09:50] LABS: Cytology, Body Fluid / CSF SEE PATHOLOGY REPORT
--- NOTE | 2020-12-18 10:13 | NURSING ---
pt to ct scan and then to surgery
[2020-12-18] MEDS: Cefazolin 1 GM/50 ML BAG IV ×2 (10:36→17:41)
[2020-12-18] MEDS: Lactated Ringers 1,000 ML 100 ML IV ×2 (10:43→17:42)
--- NOTE | 2020-12-18 10:59 | OP.CCLET_ITS ---
12/18/2020 Norberto Shearer MD [address] [phone] Re : Upper GI endoscopy procedure for Karla Baker Dear Dr. Shearer This procedure was performed on Friday, December 18, 2020. My impressions and recommendations are as follows: Impressions : - Normal esophagus. - Normal stomach. - Normal examined duodenum. - No specimens collected. Recommendations : - [facility]. - Resume previous diet. - Continue present medications. My findings are described in the full procedure note, which is enclosed. If I can be of further assistance, please feel free to contact me at Doctor phone number(s): , Work: . Sincerely, Rodolfo Beth MD 12/18/2020 10:58:35 AM This report has been signed electronically.
--- NOTE | 2020-12-18 10:59 | OP.EGD_ITS ---
Patient Name: Karla Baker Procedure Date: 12/18/2020 10:33 AM Date of : 1950 Age: 70 Procedure: Upper GI endoscopy Indications: Iron deficiency anemia, Heme positive stool Providers: Rodolfo Beth MD Medicines: Monitored Anesthesia Care Patient Profile: This is a 70 year old female. Refer to note in patient chart for documentation of history and physical. Complications: No immediate complications. Procedure: Pre-Anesthesia Assessment: - Prior to the procedure, a History and Physical was performed, and patient medications and allergies were reviewed. The patient's tolerance of previous anesthesia was also reviewed. The risks and benefits of the procedure and the sedation options and risks were discussed with the patient. All questions were answered, and informed consent was obtained. Prior Anticoagulants: The patient has taken Xarelto (rivaroxaban), last dose was 1 day prior to procedure. After reviewing the risks and benefits, the patient was deemed in satisfactory condition to undergo the procedure. After obtaining informed consent, the endoscope was passed under direct vision. Throughout the procedure, the patient's blood pressure, pulse, and oxygen saturations were monitored continuously. The gastroscope was introduced through the mouth, and advanced to the second part of duodenum. The upper GI endoscopy was accomplished without difficulty. The patient tolerated the procedure well. Scope In: 10:46:47 AM Scope Out: 10:49:38 AM Total Procedure Duration Time 0 hours 2 minutes 51 seconds Findings: The esophagus was normal. The stomach was normal. The examined duodenum was normal. Impression: - Normal esophagus. - Normal stomach. - Normal examined duodenum. - No specimens collected. Recommendation: - [facility]. - Resume previous diet. - Continue present medications. Procedure Code(s): --- Professional --- 81734, Esophagogastroduodenoscopy, flexible, transoral; diagnostic, including collection of specimen(s) by brushing or washing, when performed (separate procedure) Diagnosis Code(s): --- Professional --- D50.9, Iron deficiency anemia, unspecified R19.5, Other fecal abnormalities CPT copyright 2017 [employer]. All rights reserved. The codes documented in this report are preliminary and upon wastewater manager review may be revised to meet current compliance requirements. Rodolfo Beth MD 12/18/2020 10:58:35 AM This report has been signed electronically. Number of Addenda: 0 Note Initiated On: 12/18/2020 10:33 AM
[2020-12-18] MEDS: Allopurinol 300 MG Tablet PO (12:06)
[2020-12-18] MEDS: Carvedilol 12.5 MG Tablet PO ×2 (12:06→21:16)
[2020-12-18] MEDS: Iron Polysaccharide Complex 150 MG CAPSULE PO (12:06)
[2020-12-18] MEDS: Losartan Potassium 25 MG Tablet PO (12:06)
--- NOTE | 2020-12-18 13:50 | CASEMGMT ---
RN CM Face to Face with patient for initial transition planning/care coordination assessment. RN CM introduced self and role at [facility]. Patient lying in bed, alert and oriented. Patient willing to participate in assessment and is able to answer all questions appropriately. Care providers, pharmacy, and demographics verified. Patient wishes to discharge home, denies need for home health at this time. Patient states he has no further needs or concerns at this time. CM to follow for discharge planning needs that may arise. PCP: Manfred Specialists: Iva, CHILD CARE COORDINATOR; Flavia event mgr Preferred Pharmacy: [facility] Insurance: Medicare, [employer] Prescription Benefit: yes Living Will/HPOA: no, no LNOK: Sergio Mendes nephjoseph Living Arrangements: Patient lives alone in a mobile home with 5 steps with rail for entry. Pt reports she was independent at home. Transportation: self/nephew DME/HHC: Patient reports having a shower chair, raised toilet seat, cane and walker. Patient has previously been at [facility] and had [facility] HHS. Disposition Plan: Patient to wi home with family support and follow up plans in place.
[2020-12-18] MEDS: Nortriptyline 10 MG Capsule 30 MG PO (21:14)
[2020-12-18] MEDS: Pravastatin 40 MG Tablet PO (21:14)
[2020-12-18] MEDS: Sertraline 100 MG Tablet 150 MG PO (21:15)
[2020-12-19] VITALS (7 sets, daily range): BP systolic 118–131; BP diastolic 58–74; PULSE 60–80; RESP 16–19; TEMP 36.4–36.7; O2SAT 94–96
[2020-12-19] MEDS: Cefazolin 1 GM/50 ML BAG IV ×2 (02:33→09:05)
[2020-12-19 07:16] LABS: Absolute Lymphocyte Count 0.96 X10^3/uL (0.83-4.51); Absolute Neutrophil Count 5.4 X10^3/uL (2.0-7.7); Basophil# 0.02 X10^3/uL; Basophil% 0.3 % (0-1); Eosinophils% 1.5 % (0-5); Hematocrit 25.4 % (37-47); Hemoglobin 7.5 g/dL (12.0-15.0); Lymphocyte # 0.96 X10^3/ul (4.0); Mean Corp Hgb Conc 29.5 g/dL (32-36); Mean Corpuscular Hgb 24.8 pg (27.0-32.0); Mean Corpuscular Volume 84.1 fL (81-99); Mean Platelet Vol. 9.7 fl (6.2-12.0); Monocyte# 0.35 X10^3/uL; Monocyte% 5.1 % (0-10); NRBC Flagged by Analyzer 0 % (0-5); Neutrophil # 5.43 X10^3/uL (2.7-7.7); Neutrophil % 78.8 % (47-70); Platelet Count 236 K/mm3 (150-450); RBC Distribution Width SD 54.9 fl (35.1-43.9); Red Blood Count 3.02 M/mm3 (4.2-5.4); White Blood Count 6.9 K/mm3 (4.4-11.0)
--- NOTE | 2020-12-19 07:45 | PCM.PN.HOSP ---
Patient Problems: Active and Suspected Problems (Last Reviewed 12/18/20 @ 09:[address] Carmen Enrique MD) Upper GI bleeding (Acute) Acute blood loss anemia (Acute) Hematuria (Acute) Objective: Hemoglobin is about 7.5. On continuous bladder irrigation. Blood pressure and heart rate in acceptable range. Vitals/I&O's: Vital Signs Temp Pulse Resp BP Pulse Ox 98.1 F 64 16 122/58 H 94 12/19/20 02:29 12/19/20 03:17 12/19/20 02:29 12/19/20 02:29 12/19/20 07:00 Oxygen Flow Rate (L/min) 2 Oxygen Delivery Method Room Air Weight: 222 lb 8 oz Body Mass Index (BMI) 39.4 Intake and Output for Last 24 Hours 12/17/20 12/18/20 12/19/20 23:59 23:59 23:59 Intake Total 35 / 35 2725.41 / 2725.41 861.67 / 861.67 Output Total 500 / 500 550 / 550 Balance 35 / 35 2225.41 / 2225.41 311.67 / 311.67 Microbiology Past 72 Hours 12/18/20 06:00 Urine Catheter - Catheter Urine Culture - Preliminary Culture exhibits no growth. 12/18/20 07:00 Mucosa - Nose SARS-CoV-2 Antigen (Rapid) - Final 12/17/20 16:04 Stool Stool Occult Blood ([place]) - Final Occult Blood Positive Laboratory Results 12/18/20 05:50: APTT 30.9 12/18/20 05:50: TSH 2.51 12/18/20 09:30: Miscellaneous Cytology Pending 12/19/20 06:35: WBC 6.9, RBC 3.02 L, Hgb 7.5 L, Hct 25.4 L, MCV 84.1, MCH 24.8 L, MCHC 29.5 L, RDW Std Deviation 54.9 H, RDW Coeff of Lily 18.0 H, Plt Count 236, MPV 9.7, Immature Gran % (Auto) 0.300, Neut % (Auto) 78.8 H, Lymph % (Auto) 14.0 L, [place] % (Auto) 5.1, Eos % (Auto) 1.5, Baso % (Auto) 0.3, Absolute Neuts (auto) 5.4, Absolute Lymphs (auto) 0.96, Nucleated RBC % 0 12/19/20 06:35: Sodium Pending, Potassium Pending, Chloride Pending, Carbon Dioxide Pending, Anion Gap Pending, BUN Pending, Creatinine Pending, Est GFR (MDRD) Af Amer Pending, Est GFR (MDRD) Non-Af Pending, BUN/Creatinine Ratio Pending, Glucose Pending, Calcium Pending Current Medications Acetaminophen (Acetaminophen 325 Mg Tablet) 650 mg PO Q6H PRN PRN PRN Reason: Pain Score 1-10/Temp > 100.7 F Last Admin: 12/17/20 20:03 Dose: 650 mg Documented by: Albuterol Sulfate (Albuterol 2.5 Mg/3 Ml Vial.Neb.) 2.5 mg INHALATION Q4H PRN PRN PRN Reason: Shortness of breath, wheezing Allopurinol (Allopurinol 300 Mg Tablet) 300 mg PO DAILY [facility] Last Admin: 12/18/20 12:06 Dose: 300 mg Documented by: Carvedilol (Carvedilol 12.5 Mg Tablet) 12.5 mg PO BID [facility] Last Admin: 12/18/20 21:16 Dose: 12.5 mg Documented by: Cefazolin Sodium () 1 gm in 50 mls @ 100 mls/hr IV Q8H [facility] Last Infusion: 12/19/20 03:03 Dose: Infused Documented by: Losartan Potassium (Losartan Potassium 25 Mg Tablet) 25 mg PO DAILY [facility] Last Admin: 12/18/20 12:06 Dose: 25 mg Documented by: Nortriptyline HCl (Nortriptyline 10 Mg Capsule) 30 mg PO QHS [facility] Last Admin: 12/18/20 21:14 Dose: 30 mg Documented by: Ondansetron HCl (Ondansetron 4 Mg/2 Ml Vial) 4 mg IV Q8H PRN PRN PRN Reason: NAUSEA/VOMITING Pantoprazole Sodium (Pantoprazole Sodium 40 Mg Tablet) 40 mg PO DAILY [facility] Polysaccharide Iron Complex (Iron Polysaccharide Complex 150 Mg Capsule) [facility] Last Admin: 12/18/20 12:06 Dose: 150 mg Documented by: Pravastatin Sodium (Pravastatin 40 Mg Tablet) 40 mg PO QHS [facility] Last Admin: 12/18/20 21:14 Dose: 40 mg Documented by: Sertraline HCl (Sertraline 100 Mg Tablet) 150 mg PO QHS [facility] Last Admin: 12/18/20 21:15 Dose: 150 mg Documented by: Sodium Chloride (0.9% Saline Lock 10 Ml Syringe) 10 - 40 ml IV UD PRN PRN Reason: SALINE FLUSH Zolpidem Tartrate (Zolpidem Tartrate 5 Mg Tablet) 5 mg PO QHS PRN PRN PRN Reason: INSOMNIA STROKE Vital Signs/Narrative: Vital Signs Pulse Ox 12/19/20 07:00 94 Medical Necessity - Tobacco Use Smoking Status: Never smoker Tobacco Use: Non-smoker Assessment/Plan All Active Problems (Last Reviewed 12/18/20 @ 09:[address] Carmen Enrique MD) Upper GI bleeding (Acute) Acute blood loss anemia (Acute) Hematuria (Acute)
[2020-12-19 07:57] LABS: Anion Gap 6 (5-15); BUN 20 mg/dL (7-18); BUN/Creat Ratio 14.9 RATIO (10-20); Calcium,Total 7.8 mg/dL (8.5-10.1); Chloride 110 mmol/L (98-107); Creatinine, Serum 1.34 mg/dL (0.55-1.02); EST Glomerular Filtration Rate 42 mL/min (>60); Est Glom Filt Rate - Afr Amer 50 mL/min (>60); Estimated Creatinine Clearance 32.78 ml/min; Glucose 93 mg/dL (74-106); Potassium 4.5 mmol/L (3.5-5.1); Sodium Level 139 mmol/L (136-145)
[2020-12-19] MEDS: Iron Polysaccharide Complex 150 MG CAPSULE PO (09:02)
[2020-12-19] MEDS: Carvedilol 12.5 MG Tablet PO (09:02)
[2020-12-19] MEDS: Allopurinol 300 MG Tablet PO (09:03)
[2020-12-19] MEDS: Losartan Potassium 25 MG Tablet PO (09:03)
[2020-12-19] MEDS: Pantoprazole Sodium 40 MG Tablet PO (09:05)
[2020-12-19] MEDS: 0.9% Saline Lock 10 ML Syringe IV (09:06)
--- NOTE | 2020-12-19 10:57 | NURSING ---
@ approx 8 am, dr ni called to get update on pt, urine is pale yellow and no hematuria observed, she ordered that CBI be stopped at this time and she will stop to see pt later today-call if hematuria recurs
--- NOTE | 2020-12-19 11:11 | PCM.DC ---
- Discharge Diagnoses Current Active Problems: Current Active and Chronic Problems (Last Reviewed 12/18/20 @ 09:[address] Carmen Enrique MD) Upper GI bleeding (Acute) Acute blood loss anemia (Acute) Hematuria (Acute) Biventricular ICD (implantable cardioverter-defibrillator) in place (Chronic 07/04/20) Biventricular ICD upgrade from Dual chamber PPM on 07/04/2020, requiring placement of epicardial left ventricular lead via left anterior minithoracotomy and connection of lead to VACUUM DRIER OPERATOR-D generator on 07/06/2020 Non-ischemic cardiomyopathy (Chronic) Monomorphic ventricular tachycardia (Chronic) Second degree atrioventricular block (Chronic) Chronic atrial fibrillation (Chronic) Paroxysmal atrial tachycardia (Chronic) Atherosclerotic heart disease of [place] coronary artery without angina pectoris (Chronic) Chronic combined systolic and diastolic CHF (congestive heart failure) (Chronic) Left ventricular diastolic dysfunction (Chronic) Mitral papillary muscle dysfunction (Chronic) Secondary pulmonary arterial hypertension (Chronic) Essential (primary) hypertension (Chronic) Hyperlipidemia (Chronic) Malignant neoplasm of cervix uteri, unspecified (Chronic) 2010:cervix remains. Had radiation and chemo You will use the following diet at home:: Cardiac Your food should be the consistency of: Regular Your liquids should be the consistency of: Regular/Thin Discharge Activity: May Not Drive - For 1 to 2 weeks until see his PCP Weight Bearing Status: Weight bearing as tolerated Call your doctor if you observe: Fever of 101 or Higher, Numbness or Tingling, Change in Color, Inability to urinate, Inability to have a bowel movement, Using more than one pad per hour, Shortness of breath, Dizziness, Fainting spells, Swelling in the ankles, Chest pain, Increased palpitations (irregular heartbeat), Calf discomfort Allergies/Adverse Reactions: Allergies Gadolinium-MRI Contrast Medium Allergy (Mild, Verified 12/18/20 10:00) Hives amlodipine besylate [From Norvasc] Allergy (Verified 12/17/20 16:38) cough cough amoxicillin [From Augmentin] Allergy (Verified 12/17/20 15:33) PT UNSURE OF REACTION clavulanic acid [From Augmentin] Allergy (Verified 12/17/20 15:33) PT UNSURE OF REACTION ibuprofen Allergy (Verified 12/17/20 16:38) Pt told not to take rofecoxib [From Vioxx] Allergy (Verified 12/17/20 15:33) PT UNSURE OF REACTION codeine Adverse Reaction (Verified 12/17/20 16:38) Nausea/Vom/Diarrhea hydrochlorothiazide Adverse Reaction (Verified 12/17/20 15:33) hypokalemia envelope adhesive Adverse Reaction (Uncoded 12/17/20 15:33) Diarrhea Medications to take at Discharge Allopurinol [Zyloprim] 300 mg PO DAILY 07/28/13 Omeprazole [Prilosec] 20 mg PO DAILY 07/28/13 Cholecalciferol (Vitamin D3) [D3-2000] 2,000 unit PO DAILY 08/25/19 Nortriptyline HCl [Pamelor] 30 mg PO QHS 08/25/19 albuterol sulfate 90 mcg/actuation aerosol inhaler 1 puff INHALATION Q6H PRN 05/10/20 denosumab 60 mg/mL subcutaneous syringe 60 mg SC [id number] ml 05/10/20 Acetaminophen [Tylenol] 1,000 mg PO Q6H PRN PRN tab 08/21/20 carvedilol 12.5 mg tablet 12.5 mg PO BID tab 09/06/20 pravastatin 40 mg tablet 40 mg PO QHS tab 09/06/20 sertraline 100 mg tablet 150 mg PO QHS 09/06/20 Iron Polysaccharide Complex [Ferrex 150] 150 mg PO DAILY 12/17/20 Losartan Potassium [Cozaar] 25 mg PO DAILY 12/17/20 Magnesium Oxide 400 mg PO DAILY 12/17/20 Cephalexin [Keflex] 500 mg PO Q8 #6 cap 12/19/20 Furosemide 40 mg PO DAILY #0 tab 12/19/20 Pantoprazole Sodium [Protonix] 40 mg PO DAILY #30 tab 12/19/20 Potassium Chloride Oral Tablet [K-Dur] 20 meq PO DAILY #0 12/19/20 The following prescriptions were given: Cephalexin [Keflex] 500 mg PO Q8 #6 cap Transmission Status: Pending to [id number] Pantoprazole Sodium [Protonix] 40 mg PO DAILY #30 tab Transmission Status: Pending to [id number] Primary Care Physician: Norberto Shearer MD [Primary Care Provider] - Please follow up with your Primary Care Physician in: In 1 to 2 weeks Test Results: Test results from this visit will be discussed in further detail at your follow-up appointment, if applicable. Please Follow Up With: Carmen Enrique MD When: IN 1 week for cystoscopy
--- NOTE | 2020-12-19 11:42 | PCM.PN.BLA ---
Progress Note Patient is comfortable, sitting up in chair at bedside. Vital signs are good. Abdomen is soft, nontender, obese. Urine is clear yellow with CBI off. CT scan reviewed, no urologic pathology is evident. Cytology is still pending, urine culture is negative. Assessment and plan Remove Meza Follow-up in the office in 1 week for cystoscopy Would recommend home with 2 days of Keflex despite negative urine culture as urine cleared quickly with Ancef on board. You for the privilege of this consult, please call with questions or concerns. STROKE Vital Signs/Narrative: Vital Signs Temp Pulse Resp BP Pulse Ox 12/19/20 10:00 66 12/19/20 07:55 97.6 F L 60 19 H 118/63 94
--- NOTE | 2020-12-19 12:18 | PCM.DC.SUM ---
Discharge Date and Diagnosis - Problem List Patient Problems: Active and Suspected Problems (Last Reviewed 12/18/20 @ 09:[address] Carmen Enrique MD) Upper GI bleeding (Acute) Acute blood loss anemia (Acute) Hematuria (Acute) Date of Admission: 12/17/20 Date of Discharge: 12/19/20 - Primary Discharge Diagnosis Acute Problems: Active Problems (Last Reviewed 12/18/20 @ 09:[address] Carmen Enrique MD) Upper GI bleeding (Acute) Acute blood loss anemia (Acute) Hematuria (Acute) - Secondary Discharge Diagnosis Chronic Problems: Chronic Problems (Last Reviewed 12/18/20 @ 09:[address] Carmen Enrique MD) Chronic renal insufficiency (Chronic) Biventricular ICD (implantable cardioverter-defibrillator) in place (Chronic 07/04/20) Biventricular ICD upgrade from Dual chamber PPM on 07/04/2020, requiring placement of epicardial left ventricular lead via left anterior minithoracotomy and connection of lead to DOOR CAPTAIN-D generator on 07/06/2020 Non-ischemic cardiomyopathy (Chronic) Monomorphic ventricular tachycardia (Chronic) Second degree atrioventricular block (Chronic) Chronic atrial fibrillation (Chronic) Paroxysmal atrial tachycardia (Chronic) Atherosclerotic heart disease of [place] coronary artery without angina pectoris (Chronic) Chronic combined systolic and diastolic CHF (congestive heart failure) (Chronic) Left ventricular diastolic dysfunction (Chronic) Mitral papillary muscle dysfunction (Chronic) Secondary pulmonary arterial hypertension (Chronic) Essential (primary) hypertension (Chronic) Hyperlipidemia (Chronic) Malignant neoplasm of cervix uteri, unspecified (Chronic) 2010:cervix remains. Had radiation and chemo Hospital Course and Treatment Operations: None Summary of Care Provided: [] This is a 70 years old female patient was referred to the ED by her PCP because of hemoglobin of 6.4 g/dL, complaining of hematuria and she is being admitted for evaluation and treatment. #1 acute on chronic symptomatic, microcytic hypochromic anemia from hematuria: Patient is on continuous bladder irrigation. Had 2 units of PRBC transfusion. Had baseline hemoglobin between 8 to 9 g over last 2 years, admitted with hemoglobin 6.4. Hemoglobin has been stable about 7.5 for last 2 days. Patient is on iron supplement 150 mg daily. #2 complain of dark/melanotic stool: Stool was positive for occult blood. Patient had EGD which showed normal esophagus, stomach and duodenum. Discontinue IV Protonix. Continue Protonix 40 mg p.o. once daily empirically for about 6-8 weeks. Discussed with the surgeon. #3 hematuria, exact anatomic location unclear: Urinalysis reviewed. UTI ruled out. Urine culture shows no growth. UA RBC more than 100 cells, 3+ bacteria, WBC 0-5 cells, nitrite negative and LE 25. Plan for cystoscopy. Seen by Dr. Enrique. Although first urine culture from the catheter shows 2 organisms gram-negative dalton, GPC possible enterococci species in nonpathologic range probably colonization/contamination. But patient responded well on IV cefazolin. Repeat urine culture showed no growth but urologist Dr. Enrique wanted 2 more days of Keflex 500 mg every 8 hourly most likely for prophylactic prior to cystoscopy. Prescription given. She is planning cystoscopy as an outpatient in 1 week. #4 stage III chronic kidney disease: Baseline creatinine has been around 1.2 to 1.7 mg/dL. Admission creatinine is 1.38, stable at baseline. #5 chronic atrial fibrillation, status post pacemaker: Heart rate stable, continue Coreg for rate control, Xarelto discontinued. #6 chronic combined systolic and ascitic CHF/nonischemic cardiomyopathy: Status post ICD. Clinically stable, compensated. Continue Coreg and losartan as well as statins. #7 hypertension: Blood pressure stable, continue Coreg, losartan. #8 hyperlipidemia: Continue statins. #9 DVT prophylaxis: SCDs. Discharge medication reconciliation done. Discharge follow-up instructions completed. Discharge process discussed with the patient and all questions were answered to patient's satisfaction. Total time spent, exact 35 minutes on discharge meds reconciliation, examination, coordination of care with nurses and ancillary staff, review of imaging and blood test and discussion with the patient on follow-up instructions Patient Problems: Active and Suspected Problems (Last Reviewed 12/18/20 @ 09:[address] Carmen Enrique MD) Upper GI bleeding (Acute) Acute blood loss anemia (Acute) Hematuria (Acute) Objective: Hemoglobin is about 7.5 stable over last 2 days. Continuous bladder irrigation has been stopped. Urine is clear in Meza catheter tube. Blood pressure and heart rate in acceptable range. Physical exam General: Alert, Oriented x3, Cooperative HEENT: Atraumatic, PERRLA, EOMI, Normocephalic Oral: No Gingival or Mucosal Lesions/ Ulcerations Neck: Supple, No JVD, Negative Carotid Bruits Lungs: Air entry diminished in bilateral lung bases. No crepitation/rhonchi Cardiovascular: Regular rate, Regular Rhythm, Normal S1, Normal S2, No murmurs Abdomen: Bowel Sounds Present, Soft, Non Tender, Non-Distended : Urine is clear in Meza tube. No renal angle tenderness. No suprapubic tenderness. Extremities: No edema, Capillary Refill Less than 3 Seconds Skin: No rashes, No breakdown Musculoskeletal: No Tenderness to Palpation of Joints or Extremities Neurological: Cranial nerves II-XII grossly intact, Deep Tendon Reflexes 2+/4 and Symmetrical, Neuro grossly intact Psych/Mental Status: Normal Affect, Appropriate. - Physical Exam Vitals/I&O's: Vital Signs Temp Pulse Resp BP Pulse Ox 98 F 60 18 124/74 H 96 12/19/20 11:46 12/19/20 11:46 12/19/20 11:46 12/19/20 11:46 12/19/20 11:46 Oxygen Flow Rate (L/min) 2 Oxygen Delivery Method Room Air Weight: 222 lb 8 oz Body Mass Index (BMI) 39.4 Intake and Output for Last 24 Hours 12/17/20 12/18/20 12/19/20 23:59 23:59 23:59 Intake Total 35 / 35 2725.41 / 2725.41 861.67 / 861.67 Output Total 500 / 500 550 / 550 Balance 35 / 35 2225.41 / 2225.41 311.67 / 311.67 Microbiology Past 72 Hours 12/18/20 09:30 Urine, Catheterized Urine Culture - Preliminary Culture exhibits no growth. 12/18/20 06:00 Urine Catheter - Catheter Urine Culture - Preliminary Gram negative dalton GPC Poss Enterococcus sp 12/18/20 07:00 Mucosa - Nose SARS-CoV-2 Antigen (Rapid) - Final 12/17/20 16:04 Stool Stool Occult Blood (MIREILLE) - Final Occult Blood Positive Laboratory Results 12/19/20 06:35: WBC 6.9, RBC 3.02 L, Hgb 7.5 L, Hct 25.4 L, MCV 84.1, MCH 24.8 L, MCHC 29.5 L, RDW Std Deviation 54.9 H, RDW Coeff of Lily 18.0 H, Plt Count 236, MPV 9.7, Immature Gran % (Auto) 0.300, Neut % (Auto) 78.8 H, Lymph % (Auto) 14.0 L, [place] % (Auto) 5.1, Eos % (Auto) 1.5, Baso % (Auto) 0.3, Absolute Neuts (auto) 5.4, Absolute Lymphs (auto) 0.96, Nucleated RBC % 0 12/19/20 06:35: Sodium 139, Potassium 4.5, Chloride 110 H, Carbon Dioxide 23.0, Anion Gap 6, BUN 20 H, Creatinine 1.34 H, Estim Creat Clear Calc 32.78, Est GFR (MDRD) Af Amer 50 L, Est GFR (MDRD) Non-Af 42 L, BUN/Creatinine Ratio 14.9, Glucose 93, Calcium 7.8 L Current Medications Acetaminophen (Acetaminophen 325 Mg Tablet) 650 mg PO Q6H PRN PRN PRN Reason: Pain Score 1-10/Temp > 100.7 F Last Admin: 12/17/20 20:03 Dose: 650 mg Documented by: Albuterol Sulfate (Albuterol 2.5 Mg/3 Ml Vial.Neb.) 2.5 mg INHALATION Q4H PRN PRN PRN Reason: Shortness of breath, wheezing Allopurinol (Allopurinol 300 Mg Tablet) 300 mg PO DAILY [facility] Last Admin: 12/19/20 09:03 Dose: 300 mg Documented by: Carvedilol (Carvedilol 12.5 Mg Tablet) 12.5 mg PO BID [facility] Last Admin: 12/19/20 09:02 Dose: 12.5 mg Documented by: Cefazolin Sodium () 1 gm in 50 mls @ 100 mls/hr IV Q8H [facility] Last Admin: 12/19/20 09:05 Dose: 100 mls/hr Documented by: Losartan Potassium (Losartan Potassium 25 Mg Tablet) 25 mg PO DAILY [facility] Last Admin: 12/19/20 09:03 Dose: 25 mg Documented by: Nortriptyline HCl (Nortriptyline 10 Mg Capsule) 30 mg PO QHS [facility] Last Admin: 12/18/20 21:14 Dose: 30 mg Documented by: Ondansetron HCl (Ondansetron 4 Mg/2 Ml Vial) 4 mg IV Q8H PRN PRN PRN Reason: NAUSEA/VOMITING Pantoprazole Sodium (Pantoprazole Sodium 40 Mg Tablet) 40 mg PO DAILY [facility] Last Admin: 12/19/20 09:05 Dose: 40 mg Documented by: Polysaccharide Iron Complex (Iron Polysaccharide Complex 150 Mg Capsule) [facility] Last Admin: 12/19/20 09:02 Dose: 150 mg Documented by: Pravastatin Sodium (Pravastatin 40 Mg Tablet) 40 mg PO QHS [facility] Last Admin: 12/18/20 21:14 Dose: 40 mg Documented by: Sertraline HCl (Sertraline 100 Mg Tablet) 150 mg PO QHS [facility] Last Admin: 12/18/20 21:15 Dose: 150 mg Documented by: Sodium Chloride (0.9% Saline Lock 10 Ml Syringe) 10 - 40 ml IV UD PRN PRN Reason: SALINE FLUSH Last Admin: 12/19/20 09:06 Dose: 10 ml Documented by: Zolpidem Tartrate (Zolpidem Tartrate 5 Mg Tablet) 5 mg PO QHS PRN PRN PRN Reason: INSOMNIA Discharge Activity: May Not Drive - For 1 to 2 weeks until see his PCP Weight Bearing Status: Weight bearing as tolerated Call your doctor if you observe: Fever of 101 or Higher, Numbness or Tingling, Change in Color, Inability to urinate, Inability to have a bowel movement, Using more than one pad per hour, Shortness of breath, Dizziness, Fainting spells, Swelling in the ankles, Chest pain, Increased palpitations (irregular heartbeat), Calf discomfort Home Medications: Medications to take at Discharge Allopurinol [Zyloprim] 300 mg PO DAILY 07/28/13 Omeprazole [Prilosec] 20 mg PO DAILY 07/28/13 Cholecalciferol (Vitamin D3) [D3-2000] 2,000 unit PO DAILY 08/25/19 Nortriptyline HCl [Pamelor] 30 mg PO QHS 08/25/19 albuterol sulfate 90 mcg/actuation aerosol inhaler 1 puff INHALATION Q6H PRN 05/10/20 denosumab 60 mg/mL subcutaneous syringe 60 mg SC [id number] ml 05/10/20 Acetaminophen [Tylenol] 1,000 mg PO Q6H PRN PRN tab 08/21/20 carvedilol 12.5 mg tablet 12.5 mg PO BID tab 09/06/20 pravastatin 40 mg tablet 40 mg PO QHS tab 09/06/20 sertraline 100 mg tablet 150 mg PO QHS 09/06/20 Iron Polysaccharide Complex [Ferrex 150] 150 mg PO DAILY 12/17/20 Losartan Potassium [Cozaar] 25 mg PO DAILY 12/17/20 Magnesium Oxide 400 mg PO DAILY 12/17/20 Cephalexin [Keflex] 500 mg PO Q8 #6 cap 12/19/20 Furosemide 40 mg PO DAILY #0 tab 12/19/20 Pantoprazole Sodium [Protonix] 40 mg PO DAILY #30 tab 12/19/20 Potassium Chloride Oral Tablet [K-Dur] 20 meq PO DAILY #0 12/19/20 Following Prescriptions Were Given to Patient: Cephalexin [Keflex] 500 mg PO Q8 #6 cap [facility] Pantoprazole Sodium [Protonix] 40 mg PO DAILY #30 tab Transmission Status: [facility] Primary Care Physician: Norberto Shearer MD [Primary Care Provider] - Please follow up with your Primary Care Physician in: In 1 to 2 weeks Please Follow Up With: Carmen Enrique MD When: IN 1 week for cystoscopy Medical Necessity - Tobacco Use Smoking Status: Never smoker Tobacco Use: Non-smoker Meaningful Use Info Meaningful Use Diagnoses (Choose all that apply): None applicable Inpatient E&M: [id number] [facility]
--- NOTE | 2020-12-20 14:11 | CASEMGMT ---
RYDER PRAJAPATI Discharge Follow-up Phone Call: STEWART: Beth Strata:3 Call Date:12/20/2020 Discharge Date:12/19/2020 Time of Call:1409 Duration:<1 min Admitting Diagnosis:acute on chronic anemia, hematuria, melena TC to pt home for FU t/c. No answer. Left message on with returned call number.
== END 2020-12-19 16:03 | disposition home or self-care (01) | DRG 812 ==
LOC: ED 16:29 → MS3 18:16
PROVIDERS: Anesthesiology; Surgery; Urology; Admitting Provider Hospitalist; Emergency Provider Emergency Medicine; PCP Family Medicine; Visit Provider Internal Medicine
PROC: 0DJ08ZZ Inspection of Upper Intestinal Tract, Via Natural or Artificial Opening Endoscopic (ICD-10-PCS; CPT 43235; principal; 2020-12-18 10:55)
DX: D62 Acute posthemorrhagic anemia (principal); K92.1 Melena; I50.42 Chronic combined systolic (congestive) and diastolic (congestive) heart failure; I13.0 Hypertensive heart and chronic kidney disease with heart failure and stage 1 through stage 4 chronic kidney disease, or unspecified chronic kidney disease; I47.1 Supraventricular tachycardia; I42.8 Other cardiomyopathies; I47.2 Ventricular tachycardia; I48.19 Other persistent atrial fibrillation; R31.0 Gross hematuria; C53.9 Malignant neoplasm of cervix uteri, unspecified; I25.10 Atherosclerotic heart disease of native coronary artery without angina pectoris; E78.5 Hyperlipidemia, unspecified; I27.21 Secondary pulmonary arterial hypertension; I44.1 Atrioventricular block, second degree; K21.9 Gastro-esophageal reflux disease without esophagitis; J44.9 Chronic obstructive pulmonary disease, unspecified; N18.30 Chronic kidney disease, stage 3 unspecified; M10.9 Gout, unspecified; M19.90 Unspecified osteoarthritis, unspecified site; E66.9 Obesity, unspecified; K58.9 Irritable bowel syndrome, unspecified; Z79.01 Long term (current) use of anticoagulants; Z95.810 Presence of automatic (implantable) cardiac defibrillator; Z92.21 Personal history of antineoplastic chemotherapy; Z92.3 Personal history of irradiation; Z68.39 Body mass index [BMI] 39.0-39.9, adult; Z86.718 Personal history of other venous thrombosis and embolism
CPT/HCPCS: 36415; 71045; 74178; 80048; 81001; 82274; 84443; 84484; 85025; 85027; 85610; 85730; 86850; 86900; 86901; 86920; 86922; 87077; 87086; 87088; 87186; 87426; 88108; 88313; 93005; 97162; 97166; 99251; 99285; J7030; J7050; J7120; P9016; Q9967; A4216; G0463; J2405; J3490

== ENCOUNTER → 2020-12-17 18:08 | Outpatient (CLI) | payer MEDICARE, OTHER, SELFPAY ==
--- NOTE | 2020-12-17 08:30 | CYSPIN_PTH ---
PATIENT: TRINIDAD LOPEZ LOC: [facility] U#:[id number] AGE/SX: 74/F ROOM: RE12/17/[address]: Dr. Carmen Enrique MD : [id number] BED: DIS: SPEC #: [id number] RECD: 12/18/20 08:27 STATUS: VIVIANA HETAL #: [id number] KARTHIK: 12/17/20 08:[address]: Carmen Enrique DEPT: CYTOLOGY RECD BY: Meredith Adams ENTERED: 12/18/20 08:27 SP TYPE: CYSPIN FL OTHR DR: Dr. Norberto Shearer MD Tissues: Urine Procedures: Pap Stain (control) Special Stain Group II Cytospin Fluid HEADER OPERATION: Not noted PRE-OP DIAGNOSIS: Gross hematuria TISSUE SUBMITTED: Urine for cytology DIAGNOSIS CYTOLOGY Urine for cytology (cytospin): Negative for malignant cells. Bloody specimen. See comment. ROVERTO:alisa 12/19/2020 COMMENT Clinical correlation and appropriate follow up are necessary. CYTOLOGY STUDY Slides are reviewed. CYTOLOGY GROSS Received is 10 ml of red cloudy fluid labeled with the patient's name and and designated per the requisition as urine. Submitted for cytology preparation. / alisa 12/18/2020 TC:5 CPT: 16610
[2020-12-17 15:34] VITALS: BMI 39.6
[2020-12-17 18:10] LABS: Cytology, Body Fluid / CSF SEE PATHOLOGY REPORT
== END ==
PROVIDERS: PCP Family Medicine; Referring Provider Urology; Visit Provider Urology
DX: R31.0 Gross hematuria (principal)
CPT/HCPCS: 88108; 88313

== ENCOUNTER → 2020-12-27 14:09 | Outpatient (CLI) | payer MEDICARE, OTHER, SELFPAY ==
[2020-12-18 09:36] VITALS: BMI 39.4
[2020-12-27 15:09] LABS: Absolute Neutrophil Count 5.4 X10^3/uL (2.0-7.7); Basophil# 0.04 X10^3/uL; Basophil% 0.5 % (0-1); Eosinophil# 0.78 X10^3/uL; Eosinophils% 9.8 % (0-5); Hematocrit 31.3 % (37-47); Lymphocyte % 15.1 % (19-41); Mean Corp Hgb Conc 28.8 g/dL (32-36); Mean Corpuscular Hgb 23.9 pg (27.0-32.0); Mean Corpuscular Volume 83.2 fL (81-99); Mean Platelet Vol. 10.3 fl (6.2-12.0); Monocyte# 0.48 X10^3/uL; NRBC Flagged by Analyzer 0 % (0-5); Neutrophil # 5.44 X10^3/uL (2.7-7.7); Neutrophil % 68.2 % (47-70); Platelet Count 322 K/mm3 (150-450); RBC Distribution Width CV 18.2 % (11.6-14.6); RBC Distribution Width SD 55.2 fl (35.1-43.9); Red Blood Count 3.76 M/mm3 (4.2-5.4)
== END ==
PROVIDERS: PCP Family Medicine; Referring Provider Family Medicine; Visit Provider Family Medicine
DX: D64.9 Anemia, unspecified (principal)
CPT/HCPCS: 36415; 85025

== ENCOUNTER → 2021-06-26 15:04 | Outpatient (CLI) | payer MEDICARE, OTHER, SELFPAY ==
[2021-06-26 18:29] LABS: Anion Gap 9 (5-15); BUN 22 mg/dL (7-18); BUN/Creat Ratio 15.5 RATIO (10-20); Calcium,Total 7.9 mg/dL (8.5-10.1); Chloride 104 mmol/L (98-107); Cholesterol 163 mg/dL (200); Creatinine, Serum 1.42 mg/dL (0.55-1.02); EST Glomerular Filtration Rate 39 mL/min (>60); Est Glom Filt Rate - Afr Amer 47 mL/min (>60); Free T3 2.8 pg/mL (2.18-3.98); Glucose 102 mg/dL (74-106); High Density Lipoprotein 37 mg/dL; Potassium 3.4 mmol/L (3.5-5.1); Sodium Level 138 mmol/L (136-145); T4 Free Direct 1.11 ng/dL (0.76-1.46); Thyroid Stim Hormone (TSH) 1.71 uIU/mL (0.358-3.74); Triglycerides 135 mg/dL; Very Low Density Lipoprotein 27 mg/dL (5-40)
== END ==
PROVIDERS: PCP Family Medicine; Referring Provider Family Medicine; Visit Provider Family Medicine
DX: I10 Essential (primary) hypertension (principal); E03.9 Hypothyroidism, unspecified
CPT/HCPCS: 36415; 80048; 80061; 84439; 84443; 84481

== ENCOUNTER → 2021-07-25 17:41 | Outpatient (CLI) | payer MEDICARE, OTHER, SELFPAY ==
--- NOTE | 2021-07-25 | CYSPIN_PTH ---
PATIENT: TRINIDAD LOPEZ LOC: [place] U#:[id number] AGE/SX: 74/F ROOM: RE07/25/[address]: Dr. Carmen Enrique MD : 1950 BED: DIS: SPEC #: [id number] RECD: 07/26/21 07:53 STATUS: VIVIANA FONG #: [id number] KARTHIK: 07/25/21 00:[address]: Carmen Enrique DEPT: CYTOLOGY RECD BY: Deejay Payton ENTERED: 07/26/21 07:53 SP TYPE: CYSPIN FL OTHR DR: Dr. Norberto Shearer MD Tissues: Urine Procedures: Pap Stain (control) Special Stain Group II Cytospin Fluid HEADER OPERATION: Not noted PRE-OP DIAGNOSIS: Gross hematuria TISSUE SUBMITTED: Urine for cytology DIAGNOSIS CYTOLOGY Urine for cytology (cytospin): Negative for malignant cells. See cytology study and comment. SJ:alisa 07/26/2021 COMMENT Clinical correlation and appropriate follow up are necessary. CYTOLOGY STUDY Slides are reviewed. The specimen predominantly consists of squamous epithelial cells. Numerous organisms consistent with bacteria are also noted. CYTOLOGY GROSS Received is 40 ml of yellow cloudy fluid labeled with the patient's name and and designated per the requisition as urine. Submitted for cytology preparation. / alisa 07/25/21 TC:5 [facility]: [id number]
[2021-07-25 17:42] LABS: Cytology, Body Fluid / CSF SEE PATHOLOGY REPORT
== END ==
PROVIDERS: PCP Family Medicine; Visit Provider Urology
DX: R31.0 Gross hematuria (principal)
CPT/HCPCS: 88108; 88313

== ENCOUNTER → 2021-08-01 07:56 | Outpatient (CLI) | payer MEDICARE, OTHER, SELFPAY ==
--- NOTE | 2021-08-01 08:14 | CT_ITS ---
INDICATION: GROSS HEMATURIA EXAMINATION: CT ABDOMEN AND PELVIS WITH AND WITHOUT CONTRAST - CT Abdomen And Pelvis WO/W Contrast Injection TECHNIQUE: Helically acquired images were obtained of the abdomen and pelvis both before and after IV contrast. A radiation dose optimization technique was used for this scan. IV Contrast dosage and agent: None. Oral contrast: None. COMPARISON: 12/18/2020. FINDINGS: LOWER CHEST: Small hiatus hernia seen. Mild scarring visualized in the lower lung coyle, no evidence of focal infiltrate or consolidation, no evidence of parenchymal lung masses.. No cardiomegaly or pericardial effusion. LIVER: Focal low-attenuation lesion visualized in the inferior right lobe of the liver seen on axial series 3 image 45 could represent a hemangioma. No focal mass. GALLBLADDER AND BILIARY TREE: Surgical clips visualized in the gallbladder fossa. PANCREAS: Atrophic changes, no focal cystic or solid mass. SPLEEN: Normal size without focal cystic or solid mass. ADRENAL GLANDS: No nodules. KIDNEYS AND URETERS: Multiple low-attenuation lesions visualized in bilateral kidneys consistent with simple cysts, no evidence of solid renal masses. 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 No other fluid collection. BOWEL: No evidence of acute appendicitis. No stomach or bowel distension. No focal inflammatory change. Scattered diverticular disease no evidence of acute diverticulitis. LYMPH NODES: No enlarged mesenteric or retroperitoneal lymph nodes. VESSELS: Aorta is non-dilated. URINARY BLADDER: Unremarkable. REPRODUCTIVE ORGANS: No pelvic masses. ABDOMINAL WALL: No discrete abdominal or pelvic wall hernia. BONES: No lytic or blastic abnormality. Degenerative bone changes seen. CT/CT Abd/Pelvis W/WO Contrast IMPRESSION: Multiple bilateral simple renal cysts are seen. A fatty lesion is visualized in the lower pole of the right kidney suggestive of angiomyolipoma could be the cause of the patient''s hematuria. Small type I hiatus hernia. Degenerative bone changes. Electronically Signed: Kash Vela MD at 9:21 EDT Tel , Service support ,
[2021-08-01 08:35] LABS: CREATININE FINGERSTICK 1.5 mg/dL (0.55-1.02)
== END ==
PROVIDERS: PCP Family Medicine; Referring Provider Urology; Visit Provider Urology
DX: R31.0 Gross hematuria (principal)
CPT/HCPCS: 74178; Q9967

== ENCOUNTER 2021-08-16 02:05 | Emergency (ER) | payer MEDICARE, OTHER, SELFPAY ==
[2021-08-16 02:06] VITALS: BP 137/77; PULSE 68; RESP 16; TEMP 36.8; O2SAT 97; BMI 41.5
--- NOTE | 2021-08-16 02:34 | RAD_ITS ---
STUDY: X-RAY - ACUTE ABDOMINAL SERIES REASON FOR EXAM: Female, 70 years old. Abd pain TECHNIQUE: Single view of the chest. Supine, and erect view(s) of the abdomen were obtained. COMPARISON: 08/21/2020, 12/17/2020 FINDINGS: The lungs are clear and expanded. Normal size heart. Left chest cardiac device noted. Normal mediastinum and celia. Normal visualized pulmonary arteries. Normal visualized aortic arch and descending thoracic aorta. There is a non-specific bowel gas pattern. The soft tissue structures of the abdomen and pelvis are unremarkable. Normal visualized osseous structures. There are degenerative osteoarthritic changes of the bilateral hips. RAD/Acute Abdomen Inc Chest IMPRESSION: No acute abnormal finding of the chest, abdomen, or pelvis. Electronically Signed: Norberto Carpenter MD at 4:15 EDT Tel , Service support ,
[2021-08-16 02:51] LABS: Absolute Lymphocyte Count 0.74 X10^3/uL (0.83-4.51); Absolute Neutrophil Count 6.6 X10^3/uL (2.0-7.7); Basophil# 0.03 X10^3/uL; Basophil% 0.4 % (0-1); Eosinophil# 0.08 X10^3/uL; Hematocrit 32.9 % (37-47); Lymphocyte # 0.74 X10^3/ul (0.83-4.51); Lymphocyte % 9.5 % (19-41); Mean Corp Hgb Conc 30.4 g/dL (32-36); Mean Corpuscular Hgb 26.2 pg (27.0-32.0); Mean Corpuscular Volume 86.4 fL (81-99); Mean Platelet Vol. 9.4 fl (6.2-12.0); Monocyte# 0.36 X10^3/uL; Monocyte% 4.6 % (0-10); NRBC Flagged by Analyzer 0 % (0-5); Neutrophil # 6.58 X10^3/uL (2.7-7.7); Neutrophil % 84.1 % (47-70); Platelet Count 271 K/mm3 (150-450); RBC Distribution Width CV 16.2 % (11.6-14.6); RBC Distribution Width SD 50.6 fl (35.1-43.9); Red Blood Count 3.81 M/mm3 (4.2-5.4); White Blood Count 7.8 K/mm3 (4.4-11.0)
[2021-08-16] MEDS: 0.9% Normal Saline 1,000 ML 999 ML IV (02:51)
[2021-08-16 03:08] LABS: AST(SGOT) 24 U/L (15-37); Alanine Aminotransfer ALT/SGPT 29 U/L (13-56); Albumin, Serum 3.2 g/dL (3.2-5.0); Alkaline Phosphatase 63 U/L (45-117); Anion Gap 6 (5-15); BUN 19 mg/dL (7-18); BUN/Creat Ratio 10.8 RATIO (10-20); Bilirubin, Direct 0.11 mg/dL (0.00-0.30); Calcium,Total 8.7 mg/dL (8.5-10.1); Chloride 107 mmol/L (98-107); Creatinine, Serum 1.76 mg/dL (0.55-1.02); EST Glomerular Filtration Rate 30 mL/min (>60); Est Glom Filt Rate - Afr Amer 37 mL/min (>60); Estimated Creatinine Clearance 24.96 ml/min; Globulin 4.2 g/dL (2.2-4.2); Glucose 105 mg/dL (74-106); Lipase 91 U/L (73-393); Potassium 4.4 mmol/L (3.5-5.1); Protein, Total 7.4 g/dL (6.4-8.2); Sodium Level 138 mmol/L (136-145)
--- NOTE | 2021-08-16 03:18 | EX.ED.DYSGE1 ---
HPI History of Present Illness Chief Complaint: Diarrhea Narrative Narrative: Patient is a 70-year-old female with past medical history of irritable bowel syndrome diarrhea predominant type. She states that her family doctor had her on 5 days of Bactrim which she finished on Thursday. She states Thursday she began with approximately 4 episodes of loose stool/diarrhea. She states she had a similar number of episodes today. She denies any fevers or chills or abdominal pain associated with this. She states that this is atypical for her IBS to have this many bouts of diarrhea per day. She does states she has not similar in the past and she was impacted. She states she is concerned that may be the case this time and therefore comes to the hospital for evaluation [facility] Medical History Acute blood loss anemia ASCUS of cervix with negative high risk HPV Asthma Atrial fibrillation, persistent Body mass index (BMI) of 39.0 to 39.9 in adult Cervical cancer Chronic combined systolic and diastolic CHF (congestive heart failure) Chronic renal insufficiency COPD (chronic obstructive pulmonary disease) Essential (primary) hypertension GERD (gastroesophageal reflux disease) Gout Hematuria (12/17/20) History of DVT (deep vein thrombosis) Hyperlipidemia IBS (irritable bowel syndrome) Left ventricular diastolic dysfunction Longstanding persistent atrial fibrillation Malignant neoplasm of cervix uteri, unspecified Mitral papillary muscle dysfunction Monomorphic ventricular tachycardia Non-ischemic cardiomyopathy Nonobstructive atherosclerosis of coronary artery NSVT (nonsustained ventricular tachycardia) Obesity Osteoarthritis Osteoporosis Paroxysmal atrial tachycardia Second degree atrioventricular block Secondary pulmonary arterial hypertension Upper GI bleeding Home Medications allopurinol 300 mg PO DAILY 07/28/13 [History Last Taken 12/16/20] omeprazole 20 mg PO DAILY 07/28/13 [History Last Taken 12/16/20] cholecalciferol (vitamin D3) 2,000 unit PO DAILY 08/25/19 [History Last Taken 12/16/20] denosumab 60 mg/mL subcutaneous syringe 60 mg SC [id number] 05/10/20 [History Last Taken 11/26/20] acetaminophen 1,000 mg PO Q6H PRN PRN tab 08/21/20 [Rx Last Taken Unknown] pravastatin 40 mg tablet 40 mg PO QHS tab 09/06/20 [History Last Taken 12/16/20] sertraline 100 mg tablet 150 mg PO QHS 09/06/20 [History Last Taken 12/16/20] Iron Polysaccharide Complex [Ferrex 150] 150 mg PO DAILY 12/17/20 [History Last Taken 12/16/20] levothyroxine 25 mcg tablet 25 mcg PO DAILY tab 01/01/21 [History Last Taken Unknown] rivaroxaban 20 mg tablet 20 mg PO QPM 01/01/21 [History Last Taken Unknown] furosemide 40 mg tablet 40 mg PO DAILY #90 tablet 01/22/21 [Rx Last Taken Unknown] losartan 25 mg tablet 25 mg PO DAILY tab 05/07/21 [History Last Taken Unknown] quetiapine 25 mg tablet 25 mg PO DAILY tab 05/07/21 [History Last Taken Unknown] rifaximin 550 mg tablet 550 mg PO BID tab 05/07/21 [History Last Taken Unknown] potassium chloride 20 mEq tablet,extended release(part/cryst) 20 meq PO DAILY #90 tab 06/06/21 [Rx Last Taken Unknown] magnesium oxide 400 mg PO DAILY #90 tab 07/08/21 [Rx Last Taken Unknown] carvedilol 12.5 mg tablet 12.5 mg PO BID #180 tab 07/18/21 [Rx Last Taken Unknown] Allergy/AdvReac Type Severity Reaction Status Date / Time Gadolinium-MRI Contrast Allergy Mild Hives Verified 08/16/21 02:11 Medium amlodipine besylate Allergy cough Verified 08/16/21 02:11 [From Norvasc] amoxicillin [From Augmentin] Allergy PT UNSURE Verified 08/16/21 02:11 OF REACTION clavulanic acid Allergy PT UNSURE Verified 08/16/21 02:11 [From Augmentin] OF REACTION ibuprofen Allergy Pt told Verified 08/16/21 02:11 not to take nitrofurantoin Allergy Itching Verified 08/16/21 02:11 [From Macrobid] rofecoxib [From Vioxx] Allergy PT UNSURE Verified 08/16/21 02:11 OF REACTION codeine AdvReac Nausea/Vom/ Verified 08/16/21 02:11 Diarrhea hydrochlorothiazide AdvReac hypokalemia Verified 08/16/21 02:11 envelope adhesive AdvReac Diarrhea Uncoded 08/16/21 02:11 Family History Mother Brain cancer Father Prostate cancer Surgical History Biventricular ICD (implantable cardioverter-defibrillator) in place (07/04/20) H/O hysterectomy with oophorectomy History of cardioversion (09/26/19) History of cholecystectomy History of electrophysiologic study (02/25/11) History of left heart catheterization (07/29/13) History of thoracotomy (07/06/20) History of tonsillectomy and adenoidectomy Presence of permanent cardiac pacemaker (02/25/11) Social History Smoking Status: Never smoker alcohol intake: never substance use type: does not use caffeine: Yes what type of physical activity do you participate in: none seatbelt use: always do you feel safe at home: Yes additional social history: - Retired ROS ROS ED Constitutional Constitutional ED: Denies chills or fever(s) ENT ENT ED: Denies sore throat Cardiovascular Cardiovascular: Denies chest pain Respiratory/Chest Respiratory/Chest: Denies cough or dyspnea Gastrointestinal Gastrointestinal: Reports diarrhea; Denies abdominal pain, nausea or vomiting Genitourinary Genitourinary ED: Denies dysuria Musculoskeletal Musculoskeletal: Denies myalgias Integumentary Denies rash Neurologic Neurologic: Denies headache(s) Hematologic/Lymphatic Hematologic/Lymphatic: Reports easy bleeding and easy bruising EXAM Physical Exam Const Vital Signs: 08/16/21 02:06 Temperature 98.2 F Temperature Source Oral Pulse Rate 68 Respiratory Rate 16 Blood Pressure 137/77 H Blood Pressure Mean 97 Pulse Ox 97 Oxygen Delivery Method Room Air Positive well nourished and well developed General Appearance ED: well developed HEENT Reports dry mucous membranes Mouth ED: Yes dry mucous membranes Mouth: dry mucous membranes Eyes PERRL and EOMs intact bilaterally Neck supple Resp normal respiratory effort and clear to auscultation bilaterally Cardio regular rate and regular rhythm GI non-tender, non-distended and no masses GI Narrative: Abdomen is obese soft nontender nondistended with hyperactive bowel sounds. No voluntary guarding or rigidity. No pulsatile mass Palpation: soft Extremity normal to inspection Neuro oriented x3 and CN's II-XII intact bilaterally Sensorium / Orientation: alert Psych mental status grossly normal Skin no rashes or lesions noted Skin Narrative: Skin turgor is increased MDM MDM MDM Narrative Medical decision making narrative: Patient presented to the ER afebrile with a soft nonsurgical abdomen so I felt no need for an emergent CT scan. Blood work revealed mild dehydration with a slight elevation to her creatinine but otherwise no clinically significant findings. Acute abdominal series also revealed a nonspecific bowel gas pattern with no signs of impaction. The patient's only had 2 days of diarrhea and therefore do not feel there is a need for a stool sample or C. difficile sample at this time. She had no further bouts of diarrhea while in the ER and after 1 L of IV hydration is safe for discharge Lab Data Attestation: I reviewed the patient's lab results. Labs: Laboratory Results - last 24 hr 08/16/21 08/16/21 02:45 02:45 WBC 7.8 RBC 3.81 L Hgb 10.0 L Hct 32.9 L MCV 86.4 MCH 26.2 L MCHC 30.4 L RDW Std Deviation 50.6 H RDW Coeff of Lily 16.2 H Plt Count 271 MPV 9.4 Immature Gran % (Auto) 0.400 Neut % (Auto) 84.1 H Lymph % (Auto) 9.5 L [place] % (Auto) 4.6 Eos % (Auto) 1.0 Baso % (Auto) 0.4 Absolute Neuts (auto) 6.6 Absolute Lymphs (auto) 0.74 L Nucleated RBC % 0 Sodium 138 Potassium 4.4 Chloride 107 Carbon Dioxide 25.0 Anion Gap 6 BUN 19 H Creatinine 1.76 H Estim Creat Clear Calc 24.96 Est GFR (MDRD) Af Amer 37 L Est GFR (MDRD) Non-Af 30 L BUN/Creatinine Ratio 10.8 Glucose 105 Calcium 8.7 Total Bilirubin 0.40 Direct Bilirubin 0.11 AST 24 ALT 29 Alkaline Phosphatase 63 Total Protein 7.4 Albumin 3.2 Globulin 4.2 Lipase 91 Radiography Diagnostic Testing: Clinical Impression(s) from Imaging Studies Acute Abdomen Series 08/16/21 02:34 IMPRESSION: No acute abnormal finding of the chest, abdomen, or pelvis. Electronically Signed: Norberto Carpenter MD at 4:15 EDT Tel , Service support , Discharge Plan Triage Chief Complaint: Diarrhea ED Provider: Adeel Engle Dx/Rx/DC Orders Clinical Impression: Diarrhea, Dehydration Instructions: Dehydration, ED Diarrhea, Unknown Cause Prescriptions: No Action pravastatin 40 mg tablet 40 mg PO QHS RF: 0 Xarelto 20 mg tablet 20 mg PO QPM RF: 0 levothyroxine 25 mcg tablet 25 mcg PO DAILY RF: 0 losartan 25 mg tablet 25 mg PO DAILY RF: 0 Xifaxan 550 mg tablet 550 mg PO BID RF: 0 quetiapine 25 mg tablet 25 mg PO DAILY RF: 0 omeprazole 20 MG capsule 20 mg PO DAILY RF: 0 allopurinol 300 MG tablet 300 mg PO DAILY RF: 0 sertraline 100 mg tablet 150 mg PO QHS RF: 0 denosumab 60 mg/mL syringe 60 mg SC [id number] RF: 0 cholecalciferol (vitamin D3) 2,000 UNIT capsule 2,000 unit PO DAILY RF: 0 acetaminophen 500 MG tablet 1,000 mg PO Q6H PRN PRN (Reason: Pain Score 1-10) RF: 0 Iron Polysaccharide Complex [Ferrex 150] 150 MG capsule 150 mg PO DAILY RF: 0 furosemide 40 mg tablet 40 mg PO DAILY Qty: 90 RF: 3 potassium chloride 20 mEq tablet,ER particles/crystals 20 meq PO DAILY Qty: 90 RF: 3 magnesium oxide 400 mg magnesium tablet 400 mg PO DAILY Qty: 90 RF: 3 carvedilol 12.5 mg tablet 12.5 mg PO BID Qty: 180 RF: 3 Primary Care Provider: Norberto Shearer Referrals: Norberto Shearer MD [Primary Care Provider] - Disposition Disposition: Home, Self Care
[2021-08-16 04:59] VITALS: BP 153/84; PULSE 60; PULSE 64; RESP 17; O2SAT 97; O2SAT 98
== END 2021-08-16 05:07 | disposition home or self-care (01) ==
PROVIDERS: Emergency Provider Emergency Medicine; PCP Family Medicine
DX: R19.7 Diarrhea, unspecified (principal); E86.0 Dehydration; Z86.718 Personal history of other venous thrombosis and embolism
CPT/HCPCS: 74022; 80048; 80076; 83690; 85025; 87426; 99284; J7030; A4216

== ENCOUNTER 2021-10-18 18:30 | Emergency (ER) | payer MEDICARE, OTHER, SELFPAY ==
[2021-10-18 18:31] VITALS: BP 136/79; PULSE 81; RESP 16; TEMP 36; O2SAT 94; BMI 40.7
--- NOTE | 2021-10-18 18:54 | EKG12_ITS ---
Test Reason : CP Blood Pressure : / mmHG Vent. Rate : 089 BPM Atrial Rate : 091 BPM P-R Int : 210 ms QRS Dur : 134 ms QT Int : 400 ms P-R-T Axes : 024 140 -05 degrees QTc Int : 486 ms Atrial-sensed ventricular-paced rhythm with prolonged AV conduction Biventricular pacemaker detected Abnormal ECG Confirmed by CAMERON MCCARTHY, BERENICE ([id number]), metropolitan editor PEGGY MELTON ([id number]) on 10/22/2021 9:40:43 AM Referred By: BB Confirmed By:BERENICE BARNES MD
--- NOTE | 2021-10-18 18:55 | EDS_ITS ---
HPI History of Present Illness Chief Complaint: Chest Pain Onset/Context/Timing Onset: Days (3) Activity at onset: gradual Timing: Continuous Quality: Positive for Heaviness Location: Substernal Current Severity: Moderate Maximum Severity: Moderate Worsened By: Nothing; Not Worsened By Breathing Relieved By: Nothing Associated Symptoms: Positive for Nausea, Dyspnea and Cough; Negative for Vomiting, Diaphoresis, Fever, Lightheadedness and Palpitations Narrative Narrative: Constant chest heaviness lower substernal without radiation for the past 3 days, about an hour prior to arrival she was sitting watching TV with her family and she walked to another room and back and became dyspneic for the first time in those 3 days. She denies any other changes in the discomfort. She feels a little nauseated, no diaphoresis, palpitations, lightheadedness or syncope. She has a history of atrial fibrillation for which she is ant icoagulated, she has a pacer/AICD that has not gone off anytime recently, she was unclear as to why exactly she had that, but appears in the EMR that she has a history of congestive heart failure with left ventricular dysfunction diastolic and second-degree AV block. Her cardiomyopathy is labeled as nonischemic although she apparently also has nonobstructive atherosclerotic CAD. Patient cannot remember when her last tress test or heart cath was, it was not recent. No recent illnesses although she has had a cough for the past several weeks, she states I cough all winter every winter. She denies any fevers, chills, myalgias. She has been vaccinated against Covid. [facility] Medical History Acute blood loss anemia ASCUS of cervix with negative high risk HPV Asthma Atrial fibrillation, persistent Body mass index (BMI) of 39.0 to 39.9 in adult Cervical cancer Chronic combined systolic and diastolic CHF (congestive heart failure) Chronic renal insufficiency COPD (chronic obstructive pulmonary disease) Essential (primary) hypertension GERD (gastroesophageal reflux disease) Gout Hematuria (12/17/20) History of DVT (deep vein thrombosis) Hyperlipidemia IBS (irritable bowel syndrome) Left ventricular diastolic dysfunction Longstanding persistent atrial fibrillation Malignant neoplasm of cervix uteri, unspecified Mitral papillary muscle dysfunction Monomorphic ventricular tachycardia Non-ischemic cardiomyopathy Nonobstructive atherosclerosis of coronary artery NSVT (nonsustained ventricular tachycardia) Obesity Osteoarthritis Osteoporosis Paroxysmal atrial tachycardia Second degree atrioventricular block Secondary pulmonary arterial hypertension Upper GI bleeding Home Medications allopurinol 300 mg PO DAILY 07/28/13 [History Last Taken 12/16/20] omeprazole 20 mg PO DAILY 07/28/13 [History Last Taken 12/16/20] cholecalciferol (vitamin D3) 2,000 unit PO DAILY 08/25/19 [History Last Taken 12/16/20] denosumab 60 mg/mL subcutaneous syringe 60 mg SC [id number] ml 05/10/20 [History Last Taken 11/26/20] acetaminophen 1,000 mg PO Q6H PRN PRN tab 08/21/20 [Rx Last Taken Unknown] pravastatin 40 mg tablet 40 mg PO QHS tab 09/06/20 [History Last Taken 12/16/20] sertraline 100 mg tablet 150 mg PO QHS 09/06/20 [History Last Taken 12/16/20] Iron Polysaccharide Complex [Ferrex 150] 150 mg PO DAILY 12/17/20 [History Last Taken 12/16/20] levothyroxine 25 mcg tablet 25 mcg PO DAILY tab 01/01/21 [History Last Taken Unknown] rivaroxaban 20 mg tablet 20 mg PO QPM 01/01/21 [History Last Taken Unknown] furosemide 40 mg tablet 40 mg PO DAILY #90 tablet 01/22/21 [Rx Last Taken Unknown] losartan 25 mg tablet 25 mg PO DAILY tab 05/07/21 [History Last Taken Unknown] quetiapine 25 mg tablet 25 mg PO DAILY tab 05/07/21 [History Last Taken Unknown] rifaximin 550 mg tablet 550 mg PO BID tab 05/07/21 [History Last Taken Unknown] potassium chloride 20 mEq tablet,extended release(part/cryst) 20 meq PO DAILY #90 tab 06/06/21 [Rx Last Taken Unknown] magnesium oxide 400 mg PO DAILY #90 tab 07/08/21 [Rx Last Taken Unknown] carvedilol 12.5 mg tablet 12.5 mg PO BID #180 tab 07/18/21 [Rx Last Taken Unknown] Allergy/AdvReac Type Severity Reaction Status Date / Time Gadolinium-MRI Contrast Allergy Mild Hives Verified 10/18/21 18:33 Medium amlodipine besylate Allergy cough Verified 10/18/21 18:33 [From Norvasc] amoxicillin [From Augmentin] Allergy PT UNSURE Verified 10/18/21 18:33 OF REACTION clavulanic acid Allergy PT UNSURE Verified 10/18/21 18:33 [From Augmentin] OF REACTION ibuprofen Allergy Pt told Verified 10/18/21 18:33 not to take nitrofurantoin Allergy Itching Verified 10/18/21 18:33 [From Macrobid] rofecoxib [From Vioxx] Allergy PT UNSURE Verified 10/18/21 18:33 OF REACTION codeine AdvReac Nausea/Vom/ Verified 10/18/21 18:33 Diarrhea hydrochlorothiazide AdvReac hypokalemia Verified 10/18/21 18:33 sulfamethoxazole AdvReac Itching Verified 10/18/21 18:33 [From Bactrim] trimethoprim [From Bactrim] AdvReac Itching Verified 10/18/21 18:33 envelope adhesive AdvReac Diarrhea Uncoded 10/18/21 18:33 Family History Mother Brain cancer Father Prostate cancer Surgical History Biventricular ICD (implantable cardioverter-defibrillator) in place (07/04/20) H/O hysterectomy with oophorectomy History of cardioversion (09/26/19) History of cholecystectomy History of electrophysiologic study (02/25/11) History of left heart catheterization (07/29/13) History of thoracotomy (07/06/20) History of tonsillectomy and adenoidectomy Presence of permanent cardiac pacemaker (02/25/11) Social History Smoking Status: Never smoker alcohol intake: never substance use type: does not use caffeine: Yes what type of physical activity do you participate in: none seatbelt use: always do you feel safe at home: Yes additional social history: - Retired ROS ROS ED Constitutional Constitutional ED: Denies chills or fever(s) Eyes Eyes: Denies change in vision or diplopia ENT ENT ED: Denies rhinorrhea or sore throat Cardiovascular Cardiovascular: Reports as per HPI and chest pain; Denies palpitations Respiratory/Chest Respiratory/Chest: Reports cough and dyspnea on exertion Gastrointestinal Gastrointestinal: Denies abdominal pain, diarrhea, nausea or vomiting Genitourinary Genitourinary ED: Denies dysuria or hematuria Musculoskeletal Musculoskeletal: Denies back pain or neck pain Integumentary Denies abscess or rash Neurologic Neurologic: Denies headache(s), paresthesias or weakness Psychiatric Psychiatric: Denies anxiety or suicidal thoughts EXAM Physical Exam Const Vital Signs: 10/18/21 18:31 10/18/21 19:13 10/18/21 19:26 Temperature 96.8 F L Temperature Source Temporal Pulse Rate 81 61 Respiratory Rate 16 Respiratory Effort Normal Blood Pressure 136/79 H 134/75 H Blood Pressure Mean 98 Pulse Ox 94 Oxygen Delivery Method Room Air Room Air 10/18/21 19:27 Temperature Temperature Source Pulse Rate 61 Respiratory Rate 19 H Respiratory Effort Blood Pressure 102/63 Blood Pressure Mean 76 Pulse Ox 93 Oxygen Delivery Method Room Air Positive well nourished and well developed General Appearance ED: well developed and NAD HEENT Reports moist mucous membranes normocephalic and atraumatic Eyes PERRL and EOMs intact bilaterally Neck full ROM and supple Resp normal respiratory effort and clear to auscultation bilaterally Cardio regular rate, regular rhythm and no murmurs GI non-tender and non-distended Auscultation: normoactive bowel sounds Palpation: soft Back/Spine no CVA tenderness General Back: other FROM Extremity normal to inspection General Extremety ED: Negative for edema, pulses abnormal or tenderness General Extremity: Negative for edema or pulses abnormal Neuro oriented x3, CN's II-XII intact bilaterally and no sensory deficits noted Sensorium / Orientation: awake and alert Motor Exam: strength 5/5 throughout Skin no rashes or lesions noted and no wounds Heart Score History: Moderately Suspicious ECG: Nonspecific Repolarization Age: >/= 65 years Risk Factors: >/= 3 Risk Factors or History of CAD Troponin: </= Normal Limit Score: 6 MDM MDM MDM Narrative Medical decision making narrative: Patient was given some nitroglycerin, pain is in was completely gone feeling much better now, her work-up is normal/negative. She is already on an acid reflux medication that she takes daily. Esophageal spasm is in the differential, but with 3 days of continuous chest heaviness without ischemic EKG abnormalities or troponin elevation, and a high-sensitivity troponin at 14, I feel she is stable to follow-up as an outpatient. She is comfortable with that overall plan. Do not think this is pulmonary embolus given her nonpleuritic symptoms and given the fact that she is already anticoagulated on Xarelto. Lab Data Attestation: I reviewed the patient's lab results. Labs: Laboratory Results - last 24 hr 10/18/21 10/18/21 19:08 19:08 WBC 12.4 H RBC 4.06 L Hgb 10.5 L Hct 34.9 L MCV 86.0 MCH 25.9 L MCHC 30.1 L RDW Std Deviation 52.2 H RDW Coeff of Lily 16.7 H Plt Count 384 MPV 11.6 Immature Gran % (Auto) 0.500 Neut % (Auto) 86.3 H Lymph % (Auto) 7.5 L [place] % (Auto) 4.3 Eos % (Auto) 1.0 Baso % (Auto) 0.4 Absolute Neuts (auto) 10.7 H Absolute Lymphs (auto) 0.93 Nucleated RBC % 0 Sodium 141 Potassium 3.7 Chloride 105 Carbon Dioxide 29.0 Anion Gap 7 BUN 22 H Creatinine 1.62 H Estim Creat Clear Calc 27.11 Est GFR (MDRD) Af Amer 40 L Est GFR (MDRD) Non-Af 33 L BUN/Creatinine Ratio 13.6 Glucose 110 H Calcium 9.6 Troponin I High Sens 14 Radiography Diagnostic Testing: Clinical Impression(s) from Imaging Studies Chest X-Ray 10/18/21 19:30 IMPRESSION: No acute radiographic abnormalities. Electronically Signed: Christiano Longo MD at 20:05 EST Tel , Service support , EKG Initial EKG: Attestation: I personally reviewed and interpreted this EKG as follows: Comments: Atrial flutter with ventricular pacing at a rate of 89, no acute injury pattern Prior: Unchanged Discharge Plan Triage Chief Complaint: Chest Pain ED Provider: El Booker Dx/Rx/DC Orders Clinical Impression: Chest pain, unspecified Instructions: ED Chest Pain, Uncertain Cause Prescriptions: No Action pravastatin 40 mg tablet 40 mg PO QHS RF: 0 Xarelto 20 mg tablet 20 mg PO QPM RF: 0 levothyroxine 25 mcg tablet 25 mcg PO DAILY RF: 0 losartan 25 mg tablet 25 mg PO DAILY RF: 0 Xifaxan 550 mg tablet 550 mg PO BID RF: 0 quetiapine 25 mg tablet 25 mg PO DAILY RF: 0 omeprazole 20 MG capsule 20 mg PO DAILY RF: 0 allopurinol 300 MG tablet 300 mg PO DAILY RF: 0 sertraline 100 mg tablet 150 mg PO QHS RF: 0 denosumab 60 mg/mL syringe 60 mg SC [id number] RF: 0 cholecalciferol (vitamin D3) 2,000 UNIT capsule 2,000 unit PO DAILY RF: 0 acetaminophen 500 MG tablet 1,000 mg PO Q6H PRN PRN (Reason: Pain Score 1-10) RF: 0 Iron Polysaccharide Complex [Ferrex 150] 150 MG capsule 150 mg PO DAILY RF: 0 furosemide 40 mg tablet 40 mg PO DAILY Qty: 90 RF: 3 potassium chloride 20 mEq tablet,ER particles/crystals 20 meq PO DAILY Qty: 90 RF: 3 magnesium oxide 400 mg magnesium tablet 400 mg PO DAILY Qty: 90 RF: 3 carvedilol 12.5 mg tablet 12.5 mg PO BID Qty: 180 RF: 3 Primary Care Provider: Norberto Shearer Referrals: Shahid Alejandro MD [STAFF PHYSICIAN] - 3-5 Days Norberto Shearer MD [Primary Care Provider] - Disposition Disposition: Home, Self Care
[2021-10-18] MEDS: Ondansetron 4 MG/2 ML Vial IV (19:21)
[2021-10-18 19:26] VITALS: BP 134/75; PULSE 61
[2021-10-18] MEDS: Nitroglycerin SL (ED/IMG/CATH) 0.4 MG TABLET SL (19:26)
[2021-10-18 19:27] VITALS: BP 102/63; PULSE 61; RESP 19; O2SAT 93
--- NOTE | 2021-10-18 19:30 | RAD_ITS ---
INDICATION: chest pain EXAMINATION/TECHNIQUE: X-RAY - XR Chest 1 View COMPARISON: 08/25/2019. FINDINGS: The lungs are clear. The heart is mildly enlarged. Left-sided cardiac device. No pleural effusion or pneumothorax. Degenerative changes of the thoracic spine. RAD/Chest 1 View (Portable) IMPRESSION: No acute radiographic abnormalities. Electronically Signed: Christiano Longo MD at 20:05 EST Tel , Service support ,
[2021-10-18 19:49] LABS: Absolute Lymphocyte Count 0.93 X10^3/uL (0.83-4.51); Absolute Neutrophil Count 10.7 X10^3/uL (2.0-7.7); Basophil# 0.05 X10^3/uL; Basophil% 0.4 % (0-1); Eosinophil# 0.12 X10^3/uL; Hematocrit 34.9 % (37-47); Hemoglobin 10.5 g/dL (12.0-15.0); Lymphocyte # 0.93 X10^3/ul (0.83-4.51); Lymphocyte % 7.5 % (19-41); Mean Corp Hgb Conc 30.1 g/dL (32-36); Mean Corpuscular Hgb 25.9 pg (27.0-32.0); Mean Platelet Vol. 11.6 fl (6.2-12.0); Monocyte# 0.53 X10^3/uL; Monocyte% 4.3 % (0-10); NRBC Flagged by Analyzer 0 % (0-5); Neutrophil # 10.67 X10^3/uL (2.7-7.7); Neutrophil % 86.3 % (47-70); Platelet Count 384 K/mm3 (150-450); RBC Distribution Width CV 16.7 % (11.6-14.6); RBC Distribution Width SD 52.2 fl (35.1-43.9); Red Blood Count 4.06 M/mm3 (4.2-5.4); White Blood Count 12.4 K/mm3 (4.4-11.0)
[2021-10-18 20:22] LABS: Anion Gap 7 (5-15); BUN 22 mg/dL (7-18); BUN/Creat Ratio 13.6 RATIO (10-20); Calcium,Total 9.6 mg/dL (8.5-10.1); Chloride 105 mmol/L (98-107); Creatinine, Serum 1.62 mg/dL (0.55-1.02); EST Glomerular Filtration Rate 33 mL/min (>60); Est Glom Filt Rate - Afr Amer 40 mL/min (>60); Estimated Creatinine Clearance 27.11 ml/min; Glucose 110 mg/dL (74-106); Potassium 3.7 mmol/L (3.5-5.1); Sodium Level 141 mmol/L (136-145); Troponin-I HS 14 pg/mL (3.0-54.0)
[2021-10-18 21:28] VITALS: BP 132/77; PULSE 60; RESP 20; O2SAT 95
== END 2021-10-18 21:35 | disposition home or self-care (01) ==
PROVIDERS: Emergency Provider Emergency Medicine; PCP Family Medicine
DX: R07.9 Chest pain, unspecified (principal); I25.10 Atherosclerotic heart disease of native coronary artery without angina pectoris; Z95.810 Presence of automatic (implantable) cardiac defibrillator; Z86.718 Personal history of other venous thrombosis and embolism
CPT/HCPCS: 71045; 80048; 84484; 85025; 87426; 93005; 96374; 99284; J2405

== ENCOUNTER 2021-12-25 08:31 | Outpatient (CLI) | payer MEDICARE, OTHER, SELFPAY ==
[2021-12-25 11:19] LABS: Anion Gap 6 (5-15); BUN 23 mg/dL (7-18); BUN/Creat Ratio 13.8 RATIO (10-20); Calcium,Total 10.1 mg/dL (8.5-10.1); Chloride 105 mmol/L (98-107); Creatinine, Serum 1.67 mg/dL (0.55-1.02); EST Glomerular Filtration Rate 32 mL/min (>60); Est Glom Filt Rate - Afr Amer 39 mL/min (>60); Free T3 2.5 pg/mL (2.18-3.98); Glucose 101 mg/dL (74-106); Potassium 3.9 mmol/L (3.5-5.1); Sodium Level 138 mmol/L (136-145); T4 Free Direct 0.97 ng/dL (0.76-1.46); Thyroid Stim Hormone (TSH) 2.63 uIU/mL (0.358-3.74)
== END 2021-12-25 23:59 | disposition home or self-care (01) ==
LOC: MTLAB 08:33
PROVIDERS: PCP Family Medicine; Referring Provider Family Medicine; Visit Provider Family Medicine
DX: E03.9 Hypothyroidism, unspecified (principal); I10 Essential (primary) hypertension
CPT/HCPCS: 36415; 80048; 84439; 84443; 84481

== ENCOUNTER 2022-01-31 11:49 | Outpatient (CLI) | payer MEDICARE, OTHER, SELFPAY ==
--- NOTE | 2022-01-31 11:51 | RAD_ITS ---
STUDY: X-RAY - PELVIS AND BILATERAL HIP REASON FOR EXAM: Female, 71 years old. HIP PAIN TECHNIQUE: XR Hips Bilateral with Pelvis when performed; 2 Views COMPARISON: None. FINDINGS: There is a non-specific bowel gas pattern. Normal visualized soft tissue structures. There are degenerative changes of the lumbar spine. Normal bilateral iliac wings, sacroiliac joints and visualized sacrum. Normal bilateral superior and inferior pubic rami. Normal pubic symphysis. Normal bilateral ischial tuberosities. Normal visualized femoral head. Normal acetabulum. Normal hip joint. RAD/Hips B/L min 2 views w/ Pelvis IMPRESSION: No acute findings. Electronically Signed: Graham Moy MD at 8:27 EDT ,
== END 2022-01-31 23:59 | disposition home or self-care (01) ==
LOC: MTRAD 11:51
PROVIDERS: PCP Family Medicine; Referring Provider Family Medicine; Visit Provider Family Medicine
DX: M25.559 Pain in unspecified hip (principal)
CPT/HCPCS: 73521

== ENCOUNTER 2022-05-15 09:30 | Outpatient (RCR) | payer MEDICARE, OTHER, SELFPAY ==
--- NOTE | 2022-03-11 08:32 | HP.PTEVAL_ITS ---
Patient's Visit Information TRINIDAD LOPEZ is a 71 year old F referred to Physical Therapy by Dr. Kevan Hudson DO with a diagnosis of RIGHT HIP PAIN,MILD DJD. Date of Evaluation: 03/11/22 Physical Therapist: Avila Burger, PT, Cert MDT, OCS - Visit Plan Frequency: 2x /Week Duration: 4 Weeks Plan: PT INTERVETIONS AQUATIC THERAPY FOR ROM/STRENGTH RIGHT HIP ,FUNCTIONAL STRENGTH AND FLEXABILITY - Subjective This 71 y/o female presents to physical therapy with right hip pain. Patient has had hip pain for ~ [address] jara did x-rays showed mild DJD right. Seen DR Hudson no MEDS, recommended PT. Initially ,patient did not use FWW but pain worse and unstable with walking. Patient did have extended hospital stay Jun 2020 due to complication of pacemaker . Patient pain located in groin area described as ache. Patient pain affects worse with walking ,standing ,stairs one step at time side ways. Unable to squat or kneel. Pain increases with elevation from chair. Patient sleeps uncomfortable . Denies paresthe wanda/tingling. Alleviating factors rest. Patient pain affects QOL ,gait and function . SOCIAL: . VOCATION: retired - Pain Right Hip Pain Intensity (Out of 10): 3 Pain Intensity Range: 10 - Objective POSTURE: mild forward posture. GAIT: ambulates with reciprocal pattern slow jelani mild decrease stance time RLE with fww. PALPATION: unremarkable. SYMTRTIES: align. NEURO: denies paresthesia/tingling. MMT (peak force): R quads 32 ,hams 29.8,hip flexion 17.6, hip abduction 12.7 ,WNL 4/5. AROM:R hip flexion 95 degrees ,hip abduction 40 degrees, knee flexion 10 - 120 supine knee flexion. STAIRS: ascend/descend one step at time with rails - Special Tests R Hip Scour: Positive - Balance/Special Test Scores Lower Extremity Functional Score: 24 - Goals Goal 1:: I with Aquatic therapy program Goal Time Frame: 4-6 Weeks Goal 2:: Patient to demonstrate 50% improvement with increase function with and gait and less pain Goal Time Frame: 4-6 Weeks Goal 3:: Patient to improve peak force of hip and knee by 5 to improve function with elevation chair. Goal Time Frame: 4-6 Weeks Goal 4:: Patient to gait with least restrictive device with jelani and stance time Goal Time Frame: 4-6 Weeks Goal 5:: Patient to improve LFES score by 5 points to improve function and QOL. Goal Time Frame: 4-6 Weeks - Rehabilitation Potential Physical Therapy Diagnosis: This patient has right hip pain with mild DJD with decrease ROM ,strength impairs gait ,stairs and function with using fww thus will benefit from skilled PT Rehabilitation Potential: Good - Anticipated Interventions Patient/Client Instruction: Educate patient on: Condition, Plan of Care For the Purpose of:: To decrease pain, To increase ROM, To improve muscle performance and motor function, To improve ability to perform ADL's, To increase tolerance to activity/condition/position, To improve ability of physical actions for home/community/work/leisure, To improve health of tissue, To decrease soft tissue restriction, To increase flexibility/ROM Therapeutic Exercise to Include: Strength training, Power training, Endurance training, Balance training, Flexibilty training, Gait and locomotor training, In an aquatic setting, Passive ROM, Active ROM Comment: HIP /KNEE For the Purpose of:: To decrease pain, To increase ROM, To improve muscle performance and motor function, To improve ability to perform ADL's, To increase tolerance to activity/condition/position, To improve performance and independence with ADL's, To improve ability of physical actions for home/community/work/leisure, To improve gait and locomotor functions, To increase flexibility/ROM, To improve endurance, To improve balance Thank you for the opportunity to evaluate your patient. For Medicare and Medicare HMO plans, please review the plan of care and approve it. It will need to be FAXED BACK to us at [phone] for Medicare purposes. For Medicare only, by signing this I certify the plan of care. Please let me know if there are questions or concerns regarding this plan of care. Physician Signature: Date:
--- NOTE | 2022-04-15 09:43 | HP.PTDCSUM ---
It has been my pleasure to treat TRINIDAD LOPEZ referred by Dr. Kevan Hudson DO, with the diagnosis of RIGHT HIP PAIN,MILD DJD for a total of 9 visit(s). Discharge Date: Please see the following information for a summary of their discharge status. Subjective: Patient stated pool therapy helping ,less pain in groin but unable to walk with walker fww Right Hip Pain Intensity (Out of 10): 0 LB Pain Intensity (Out of 10): 0 % Improvement: 80 Objective/Function: POSTURE: mild forward posture. GAIT: mild forward posture antalgic mild. NEURO: denies paresthesia/tingling. AROM: hip flexion 100 degrees ,abd 40 degrees. MMT: quads/hams 4/5,hip flexion 4-/5 Goal 1:: I with Aquatic therapy program Goal 2:: Patient to demonstrate 80% improvement with increase function with and gait and less pain ( new goal) Goal 3:: Patient to improve peak force of hip and knee by 5 to improve function with elevation chair.( new goals) Goal 4:: Patient to gait with least restrictive device with jelani and stance time Goal Progress: Progressing Goal 5:: Patient to improve LFES score by 5 points to improve function and QOL.( new goal) Plan: cont poc 2x/week for 4weeks. PT INTERVETIONS AQUATIC THERAPY FOR ROM/STRENGTH RIGHT HIP ,FUNCTIONAL STRENGTH AND FLEXABILITY If there are questions or concerns regarding this patient's physical therapy, please feel free to call me at [phone]. Thank you for the referral of this patient. Sincerely, Avila Burger, PT, Cert MDT, OCS Balance/Gait/Functional tests - Balance/Special Test Scores Lower Extremity Functional Score: 28
--- NOTE | 2022-05-15 09:53 | HP.PTDCSUM ---
It has been my pleasure to treat TRINIDAD LOPEZ referred by Dr. Kevan Hudson DO, with the diagnosis of RIGHT HIP PAIN,MILD DJD for a total of 17 visit(s). Discharge Date: 05/15/22 Please see the following information for a summary of their discharge status. Subjective: Doing much better,, used cane yesterday 14 steps with cane Right Hip Pain Intensity (Out of 10): 1 LB Pain Intensity (Out of 10): 0 % Improvement: 95 Objective/Function: POSTURE: mild forward posture. GAIT: reciprocal pattern with FWW. NUURO : intact. AROM: hip flexion 100 degrees, hip abd 30 degrees. MMT PEAK FORCE: quads/hams BY 10,hip flexion BY10 Goal 1:: I with Aquatic therapy program Goal Progress: Goal Met Goal 2:: Patient to demonstrate 80% improvement with increase function with and gait and less pain ( new goal) Goal Progress: Goal Met Goal 3:: Patient to improve peak force of hip and knee by 5 to improve function with elevation chair.( new goals) Goal Progress: Goal Met Goal 4:: Patient to gait with least restrictive device with jelani and stance time Goal Progress: Goal Met Goal 5:: Patient to improve LFES score by 5 points to improve function and QOL.( new goal) Plan: D/C TO [facility] Discharge Comments: [facility] If there are questions or concerns regarding this patient's physical therapy, please feel free to call me at [phone]. Thank you for the referral of this patient. Sincerely, Avila Burger, PT, Cert MDT, OCS Balance/Gait/Functional tests - Balance/Special Test Scores Lower Extremity Functional Score: 46
== END 2022-05-15 19:00 | disposition home or self-care (01) ==
LOC: PT 09:30
PROVIDERS: PCP Family Medicine; Referring Provider Orthopaedic Surgery; Visit Provider Orthopaedic Surgery
DX: M16.11 Unilateral primary osteoarthritis, right hip (principal)
CPT/HCPCS: 97110; 97113; 97162; 97530

== ENCOUNTER → 2022-06-24 | Outpatient (CLI) | payer MEDICARE, OTHER, SELFPAY ==
[2022-06-24 11:25] LABS: Anion Gap 7 (5-15); BUN 25 mg/dL (7-18); BUN/Creat Ratio 15.2 RATIO (10-20); Calcium,Total 10.1 mg/dL (8.5-10.1); Chloride 106 mmol/L (98-107); Cholesterol 153 mg/dL (200); Creatinine, Serum 1.64 mg/dL (0.55-1.02); EST Glomerular Filtration Rate 33 mL/min (>60); Est Glom Filt Rate - Afr Amer 40 mL/min (>60); Free T3 2.4 pg/mL (2.18-3.98); Glucose 96 mg/dL (74-106); High Density Lipoprotein 38 mg/dL; Potassium 4.1 mmol/L (3.5-5.1); Sodium Level 140 mmol/L (136-145); T4 Free Direct 0.96 ng/dL (0.76-1.46); Thyroid Stim Hormone (TSH) 2.59 uIU/mL (0.358-3.74); Triglycerides 150 mg/dL; Very Low Density Lipoprotein 30 mg/dL (5-40)
== END | disposition home or self-care (01) ==
LOC: MTLAB 07:54
PROVIDERS: PCP Family Medicine; Referring Provider Family Medicine; Visit Provider Family Medicine
DX: E03.9 Hypothyroidism, unspecified (principal); I10 Essential (primary) hypertension
CPT/HCPCS: 36415; 80048; 80061; 84439; 84443; 84481

== ENCOUNTER → 2022-09-10 | Outpatient (CLI) | payer MEDICARE, OTHER, SELFPAY ==
--- NOTE | 2022-09-10 11:20 | RAD_ITS ---
STUDY: X-RAY CHEST REASON FOR EXAM: Female, 71 years old. Cough. TECHNIQUE: Frontal and lateral views of the chest. COMPARISON: October 18, 2021. FINDINGS: Stable mild hyperinflation. There is no demonstrated pleural abnormality. Cardiomegaly with dual lead cardiac pacer unchanged. Normal mediastinum and celia. Normal visualized pulmonary arteries. Stable aortic tortuosity. Diffuse mild thoracic osteopenia with spondylosis and increased kyphosis. Normal visualized ribs, clavicles, and shoulders. There is no demonstrated abnormality of the visualized soft tissue structures of the upper abdomen. RAD/Chest PA and Lateral IMPRESSION: Stable cardiomegaly with mild hyperinflation. No new or acute finding. Electronically Signed: Santos Moore, at 12:19 EST ,
== END | disposition home or self-care (01) ==
LOC: MTRAD 11:17
PROVIDERS: PCP Family Medicine; Referring Provider Family Medicine; Visit Provider Family Medicine
DX: R05.9 Cough, unspecified (principal)
CPT/HCPCS: 71046

== ENCOUNTER 2022-11-05 16:22 | Emergency (ER) | payer MEDICARE, OTHER, SELFPAY ==
[2022-11-05 16:23] VITALS: BP 190/113; PULSE 97; RESP 24; TEMP 36.1; O2SAT 98; BMI 40.8
[2022-11-05 16:50] VITALS: O2SAT 96
[2022-11-05 16:55] VITALS: BP 188/98; PULSE 65; RESP 19; O2SAT 95
--- NOTE | 2022-11-05 16:56 | EKG12_ITS ---
Test Reason : SOB Blood Pressure : / mmHG Vent. Rate : 065 BPM Atrial Rate : 065 BPM P-R Int : 000 ms QRS Dur : 136 ms QT Int : 462 ms P-R-T Axes : 087 141 010 degrees QTc Int : 480 ms Ventricular-paced rhythm Abnormal ECG Confirmed by CAMERON MCCARTHY, BERENICE ([id number]), offline editor PEGGY MELTON ([id number]) on 11/10/2022 12:19:56 PM Referred By: Confirmed By:BERENICE BARNES MD
--- NOTE | 2022-11-05 17:15 | RAD_ITS ---
STUDY: X-RAY CHEST REASON FOR EXAM: Female, 72 years old. Shortness of breath, worsening over the past 2 days. Patient stopped taking diuretics a couple months ago. TECHNIQUE: Single AP portable view of the chest. COMPARISON: September 10, 2022. FINDINGS: Mild stable hyperinflation. There is no new mass or infiltrate. There is no demonstrated pleural abnormality. Stable cardiomegaly. Stable cardiac pacemaker/ICD. Normal mediastinum and celia. Normal visualized pulmonary arteries. Normal visualized aortic arch and descending thoracic aorta. There are diffuse degenerative changes of the visualized thoracic spine. Normal visualized ribs, clavicles, and shoulders. There is no demonstrated abnormality of the visualized soft tissue structures of the upper abdomen. RAD/Chest 1 View (Portable) IMPRESSION: Cardiomegaly with cardiac pacemaker. There is no acute pulmonary disease or major interval change. Electronically Signed: Rajiv Gant DO at 17:31 EST ,
--- NOTE | 2022-11-05 17:18 | ED.VIS.DYS ---
HPI History of Present Illness Chief Complaint: Shortness of Breath Informant: patient Narrative Narrative: Patient presents with about 2 or 3 days of some mild dyspnea. She states it is tight to breathe. No actual chest pain. She states she has had a slight cough ever since she had bronchitis in August. That has never really gone away but it is slowly improving. She has no sputum production. No hemoptysis. She did stop taking Lasix 40 mg a day about 3 or 4 months ago because of the frequent urination that it caused. She has not stopped any of her other meds. She is on Xarelto and takes it every night and took it last night. She has not had any black or bloody stools. No muscle aches. No fevers chills nausea or vomiting. Activity makes her breathing worse and rest makes a little bit better. She does not normally lay all the way flat anyway. [facility] Medical History Acute blood loss anemia ASCUS of cervix with negative high risk HPV Asthma Atrial fibrillation, persistent Body mass index (BMI) of 39.0 to 39.9 in adult Cervical cancer Chronic combined systolic and diastolic CHF (congestive heart failure) Chronic renal insufficiency COPD (chronic obstructive pulmonary disease) Essential (primary) hypertension GERD (gastroesophageal reflux disease) Gout Hematuria (12/17/20) Hip pain, right History of DVT (deep vein thrombosis) Hyperlipidemia IBS (irritable bowel syndrome) Impacted cerumen of both ears Left ventricular diastolic dysfunction Longstanding persistent atrial fibrillation Malignant neoplasm of cervix uteri, unspecified Mitral papillary muscle dysfunction Monomorphic ventricular tachycardia Non-ischemic cardiomyopathy Nonobstructive atherosclerosis of coronary artery NSVT (nonsustained ventricular tachycardia) Obesity Osteoarthritis Osteoporosis Paroxysmal atrial tachycardia Second degree atrioventricular block Secondary pulmonary arterial hypertension Upper GI bleeding Home Medications allopurinol 300 mg tablet 300 mg PO DAILY gout 07/28/13 [History Last Taken 12/16/20] cholecalciferol (vitamin D3) 50 mcg (2,000 unit) capsule 100 mcg PO DAILY supplement 08/25/19 [History Last Taken 12/16/20] denosumab 60 mg/mL subcutaneous syringe 60 mg subcut [id number] osteoporosis 05/10/20 [History Last Taken 11/26/20] acetaminophen 500 mg tablet 1,000 mg PO Q6H PRN PRN Pain Score 1-10 08/21/20 [Rx Last Taken Unknown] pravastatin 40 mg tablet 40 mg PO QHS cholesterol 09/06/20 [History Last Taken 12/16/20] sertraline 100 mg tablet 150 mg PO QHS IBS 09/06/20 [History Last Taken 12/16/20] Iron Polysaccharide Complex [Ferrex 150] 150 mg PO DAILY anemia 12/17/20 [History Last Taken 12/16/20] levothyroxine 25 mcg tablet 25 mcg PO DAILY 01/01/21 [History Last Taken Unknown] banana flakes-transgalactooligosaccharide oral powder packet (Banatrol Plus oral powder packet) ea PO 03/03/22 [History Last Taken Unknown] potassium chloride 20 mEq tablet,extended release(part/cryst) See Rx Instructions .Route .COMPLEX #90 tabs 03/31/22 [Rx Last Taken Unknown] magnesium oxide 400 mg PO DAILY supplement #90 tabs 04/29/22 [Rx Last Taken Unknown] furosemide 40 mg tablet 40 mg PO DAILY #90 tabs 08/14/22 [Rx Last Taken Unknown] carvedilol 25 mg tablet 25 mg PO BID Heart #180 tabs 08/28/22 [Rx Last Taken Unknown] losartan 50 mg tablet 25 mg PO DAILY 08/28/22 [History Last Taken Unknown] omeprazole 20 mg capsule,delayed release 20 mg PO DAILY reflux 11/05/22 [History Last Taken Unknown] rivaroxaban 20 mg tablet (Xarelto) 20 mg PO DAILY 11/05/22 [History Last Taken 11/04/22] Allergy/AdvReac Type Severity Reaction Status Date / Time Gadolinium-MRI Contrast Allergy Mild Hives Verified 11/05/22 16:23 Medium amlodipine besylate Allergy cough Verified 11/05/22 16:23 [From Norvasc] amoxicillin [From Augmentin] Allergy PT UNSURE Verified 11/05/22 16:23 OF REACTION clavulanic acid Allergy PT UNSURE Verified 11/05/22 16:23 [From Augmentin] OF REACTION ibuprofen Allergy Pt told Verified 11/05/22 16:23 not to take nitrofurantoin Allergy Itching Verified 11/05/22 16:23 [From Macrobid] rofecoxib [From Vioxx] Allergy PT UNSURE Verified 11/05/22 16:23 OF REACTION adhesive AdvReac Diarrhea Verified 11/05/22 16:23 codeine AdvReac Nausea/Vom/ Verified 11/05/22 16:23 Diarrhea hydrochlorothiazide AdvReac hypokalemia Verified 11/05/22 16:23 sulfamethoxazole AdvReac Itching Verified 11/05/22 16:23 [From Bactrim] trimethoprim [From Bactrim] AdvReac Itching Verified 11/05/22 16:23 Family History Mother Brain cancer Father Prostate cancer Surgical History Biventricular ICD (implantable cardioverter-defibrillator) in place (07/04/20) H/O hysterectomy with oophorectomy History of cardioversion (09/26/19) History of cholecystectomy History of electrophysiologic study (02/25/11) History of left heart catheterization (07/29/13) History of thoracotomy (07/06/20) History of tonsillectomy and adenoidectomy Presence of permanent cardiac pacemaker (02/25/11) Social History Smoking Status: Never smoker alcohol intake: never substance use type: does not use caffeine: Yes what type of physical activity do you participate in: none seatbelt use: always do you feel safe at home: Yes additional social history: - Retired ROS ROS ED Constitutional Constitutional ED: Denies chills or fever(s) Eyes Eyes: Denies change in vision ENT ENT ED: Denies rhinorrhea or sore throat Cardiovascular Cardiovascular: Denies chest pain, palpitations or racing heartbeat Respiratory/Chest Respiratory/Chest: Reports cough, dyspnea and dyspnea on exertion Gastrointestinal Gastrointestinal: Denies abdominal pain, nausea or vomiting Genitourinary Genitourinary ED: Reports other Details: Patient to stop the Lasix due to frequent urination but that did resolve when she stopped the Lasix. She has no urinary symptoms now. ; Denies urinary frequency Musculoskeletal Musculoskeletal: Denies myalgias Integumentary Denies rash Neurologic Neurologic: Denies headache(s) Endocrine Endocrinology: Denies polyuria Hematologic/Lymphatic Hematologic/Lymphatic: Reports easy bleeding and easy bruising Allergic/Immunologic Allergic/Immunologic ED: Denies urticaria EXAM Physical Exam Const Vital Signs: 11/05/22 16:23 11/05/22 16:50 11/05/22 16:55 Temperature 97 F L Temperature Source Temporal Pulse Rate 97 65 Respiratory Rate 24 H 19 H Respiratory Effort Normal Non-Labored Respiratory Depth Normal Respiratory Pattern Normal Blood Pressure 190/113 H 188/98 H Blood Pressure Mean 138 128 Pulse Ox 98 95 Oxygen Delivery Method Room Air Room Air Room Air 11/05/22 18:22 Temperature Temperature Source Pulse Rate 60 Respiratory Rate 18 Respiratory Effort Respiratory Depth Respiratory Pattern Blood Pressure 181/95 H Blood Pressure Mean 123 Pulse Ox 96 Oxygen Delivery Method Room Air Positive well nourished and well developed Constitutional Narrative: Patient carries on normal conversation. She is sitting in bed and is comfortable. Saturations around 95 to 97% on room air while sitting in bed showing no hypoxia. General Appearance ED: well developed and NAD; Negative for pallor HEENT Reports moist mucous membranes atraumatic Eyes Eyes Narrative: Conjunctive did not look notably pale. General Eye ED: Negative for pale conjunctiva or scleral icterus Neck no lymphadenopathy and no JVD Resp normal respiratory effort Resp Narrative: Patient crackles at the very bases. No wheezes. No rhonchi. No coughing while I am in the room. No pain with deep breath. Cardio regular rate and no murmurs Cardio Narrative: Patient has a regular rate that appears to be paced. She does have a pacer ICD in. GI non-tender Back/Spine no CVA tenderness Extremity normal to inspection Extremity Narrative: No real edema. Her extremities are not small but I do not note pitting asymmetry or tenderness. Neuro oriented x3 Psych mental status grossly normal Skin no wounds General Skin Exam: Negative for pallor MDM MDM MDM Narrative Medical decision making narrative: I did an independent interpretation of patient's single view chest x-ray that shows no sign of significant change in cardiomegaly or congestive heart failure. Final reading is also no acute process. Patient's blood work showed normal white count. She does have anemia but this is really chronic and at her baseline. Platelet count is normal. Electrolytes are normal other than mild renal dysfunction but better than in the past. Troponin is negative. BNP is elevated at 656. This is the higher of the 3 BNP is as the patient has had before. I did review our prior outpatient labs and this is worsening. But the patient's not hypoxic. She is given Lasix here. She is putting out good urine. We will get her back on her oral meds. She has them at home. She would like to go home and does not want to come in the hospital. I think we can manage this as an outpatient. Lab Data Attestation: I reviewed the patient's lab results. Labs: Laboratory Results - last 24 hr 11/05/22 11/05/22 11/05/22 17:11 17:11 17:11 WBC 8.1 RBC 4.01 L Hgb 9.5 L Hct 33.0 L MCV 82.3 MCH 23.7 L MCHC 28.8 L RDW Std Deviation 52.1 H RDW Coeff of Lily 17.5 H Plt Count 270 MPV 9.5 Immature Gran % (Auto) 0.500 Neut % (Auto) 85.5 H Lymph % (Auto) 8.2 L Hinds % (Auto) 4.3 Eos % (Auto) 1.1 Baso % (Auto) 0.4 Absolute Neuts (auto) 6.9 Absolute Lymphs (auto) 0.66 L Nucleated RBC % 0 Sodium 139 Potassium 4.2 Chloride 106 Carbon Dioxide 26.0 Anion Gap 7 BUN 29 H Creatinine 1.43 H Estim Creat Clear Calc 29.85 Est GFR (MDRD) Af Amer 47 L Est GFR (MDRD) Non-Af 38 L BUN/Creatinine Ratio 20.3 H Glucose 105 Calcium 9.4 Troponin I High Sens 30 B-Natriuretic Peptide 656.0 H Radiography Diagnostic Testing: Clinical Impression(s) from Imaging Studies Chest X-Ray 11/05/22 17:15 IMPRESSION: Cardiomegaly with cardiac pacemaker. There is no acute pulmonary disease or major interval change. Electronically Signed: Rajiv Gant DO at 17:31 EST Reading Location ID and State: [address] [place] [address] Tel [phone], Service support , EKG Initial EKG: Comments: My independent interpretation was done of patient's EKG. EKG done for dyspnea and history of atrial fibrillation read by me. This shows what appears to be a paced rhythm. Its uncertain if there is baseline variation or may be fast atrial flutter or atrial fibrillation in the background. Overall rate is regular. There is an occasional PVC. No acute ST elevation or depression. Discharge Plan Triage Chief Complaint: Shortness of Breath ED Provider: Gopal Marshall Dx/Rx/DC Orders Clinical Impression: Congestive heart failure, Dyspnea Instructions: ED Heart Failure, Congestive (CHF) Prescriptions: No Action pravastatin 40 mg tablet 40 mg PO QHS levothyroxine 25 mcg tablet 25 mcg PO DAILY losartan 50 mg tablet 25 mg PO DAILY carvedilol 25 mg tablet 25 mg PO BID Qty: 180 3RF Rx Instructions: must administer with a meal/food Banatrol Plus Powder In Packet PO allopurinol 300 MG tablet 300 mg PO DAILY sertraline 100 mg tablet 150 mg PO QHS Rx Instructions: Take nightly for 81 doses denosumab 60 mg/mL syringe 60 mg SC [id number] Rx Instructions: TWICE A YEAR cholecalciferol (vitamin D3) 2,000 UNIT capsule 100 mcg PO DAILY acetaminophen 500 MG tablet 1,000 mg PO Q6H PRN PRN (Reason: Pain Score 1-10) 0RF Iron Polysaccharide Complex [Ferrex 150] 150 MG capsule 150 mg PO DAILY omeprazole 20 mg capsule,delayed release(DR/EC) 20 mg PO DAILY Xarelto 20 mg tablet 20 mg PO DAILY potassium chloride 20 mEq tablet,ER particles/crystals See Rx Instructions .ROUTE .COMPLEX Qty: 90 3RF Dose Instruction: TAKE 1 TABLET EVERY DAY FOR SUPPLEMENT (HOLD FOR 3 DAYS, RESUME WITH LASIX) Rx Instructions: TAKE 1 TABLET EVERY DAY FOR SUPPLEMENT (HOLD FOR 3 DAYS, RESUME WITH LASIX) magnesium oxide 400 mg magnesium tablet 400 mg PO DAILY Qty: 90 3RF furosemide 40 mg tablet 40 mg PO DAILY Qty: 90 3RF Primary Care Provider: Norberto Shearer Referrals: Norberto Shearer MD [Primary Care Provider] - 1 Week Activity Restrictions/Additional Instructions: Restart your Lasix as we discussed. Disposition Disposition: Home, Self Care
[2022-11-05 17:28] LABS: Absolute Lymphocyte Count 0.66 X10^3/uL (0.83-4.51); Absolute Neutrophil Count 6.9 X10^3/uL (2.0-7.7); Basophil# 0.03 X10^3/uL; Basophil% 0.4 % (0-1); Eosinophil# 0.09 X10^3/uL; Eosinophils% 1.1 % (0-5); Hemoglobin 9.5 g/dL (12.0-15.0); Lymphocyte # 0.66 X10^3/ul (0.83-4.51); Lymphocyte % 8.2 % (19-41); Mean Corp Hgb Conc 28.8 g/dL (32-36); Mean Corpuscular Hgb 23.7 pg (27.0-32.0); Mean Corpuscular Volume 82.3 fL (81-99); Mean Platelet Vol. 9.5 fl (6.2-12.0); Monocyte# 0.35 X10^3/uL; Monocyte% 4.3 % (0-10); NRBC Flagged by Analyzer 0 % (0-5); Neutrophil # 6.92 X10^3/uL (2.7-7.7); Neutrophil % 85.5 % (47-70); Platelet Count 270 K/mm3 (150-450); RBC Distribution Width CV 17.5 % (11.6-14.6); RBC Distribution Width SD 52.1 fl (35.1-43.9); Red Blood Count 4.01 M/mm3 (4.2-5.4); White Blood Count 8.1 K/mm3 (4.4-11.0)
[2022-11-05 17:44] LABS: Anion Gap 7 (5-15); BUN 29 mg/dL (7-18); BUN/Creat Ratio 20.3 RATIO (10-20); Calcium,Total 9.4 mg/dL (8.5-10.1); Chloride 106 mmol/L (98-107); Creatinine, Serum 1.43 mg/dL (0.55-1.02); EST Glomerular Filtration Rate 38 mL/min (>60); Est Glom Filt Rate - Afr Amer 47 mL/min (>60); Estimated Creatinine Clearance 29.85 ml/min; Glucose 105 mg/dL (74-106); Potassium 4.2 mmol/L (3.5-5.1); Sodium Level 139 mmol/L (136-145); Troponin-I HS 30 pg/mL (3.0-54.0)
[2022-11-05 18:22] VITALS: BP 181/95; PULSE 60; RESP 18; O2SAT 96
[2022-11-05] MEDS: Furosemide 40 MG/4 ML Vial IV (18:32)
[2022-11-05 21:02] VITALS: BP 176/94; PULSE 67; RESP 16; O2SAT 98
== END 2022-11-05 21:02 | disposition home or self-care (01) ==
PROVIDERS: Emergency Provider Emergency Medicine; PCP Family Medicine; Visit Provider Emergency Medicine
DX: I13.0 Hypertensive heart and chronic kidney disease with heart failure and stage 1 through stage 4 chronic kidney disease, or unspecified chronic kidney disease (principal); I42.8 Other cardiomyopathies; I50.9 Heart failure, unspecified; I25.10 Atherosclerotic heart disease of native coronary artery without angina pectoris; E78.5 Hyperlipidemia, unspecified; N18.9 Chronic kidney disease, unspecified; R06.00 Dyspnea, unspecified; Z86.718 Personal history of other venous thrombosis and embolism; Z95.810 Presence of automatic (implantable) cardiac defibrillator; Z79.899 Other long term (current) drug therapy; Z79.01 Long term (current) use of anticoagulants
CPT/HCPCS: 71045; 80048; 83880; 84484; 85025; 87428; 93005; 96374; 99284; A4216; J1940

== ENCOUNTER → 2022-12-30 | Outpatient (CLI) | payer MEDICARE, OTHER, SELFPAY ==
--- NOTE | 2022-12-30 08:33 | BI_ITS ---
MAMMOGRAPHY - BILATERAL SCREENING REASON FOR EXAM: Female, 72 years old. Routine annual screening examination. PERTINENT HISTORY: Non-contributory. Remote left excisional breast biopsy. TECHNIQUE: Digital bilateral breast kathie (3D mammographic acquisition) in the CC and MLO projections. 2-D mediolateral oblique (MLO) and craniocaudad (CC) views of both breasts were obtained. CAD: Full Field Digital Mammography with Computer Added Detection was performed. COMPARISON: Comparison is made with prior study November 13, 20202019. FINDINGS: Breast Composition: There are scattered areas of fibroglandular density. There are no dominant masses or suspicious calcifications. A pacemaker battery pack is once again seen in the left axilla. No other significant abnormalities are identified. There has been no significant change since the prior study. BI/SCRN MAMM (CAD)W/KATHIE BILAT IMPRESSION: Stable bilateral screening mammogram. Yearly follow-up mammogram recommended. (A) ASSESSMENT CATEGORY: BIRADS Category 2: Benign. A letter regarding these results will be sent to the patient by the facility within 30 days. Approximately 10% of breast cancers are not detected by mammography. A normal mammogram should not delay biopsy of a clinically suspicious abnormality. [id number] Electronically Signed: López Kenney MD at 10:04 EST ,
== END | disposition home or self-care (01) ==
LOC: OPBI 08:31
PROVIDERS: PCP Family Medicine; Referring Provider Nurse Practitioner Women's Health; Visit Provider Nurse Practitioner Women's Health
DX: Z12.31 Encounter for screening mammogram for malignant neoplasm of breast (principal); C53.9 Malignant neoplasm of cervix uteri, unspecified; Z12.4 Encounter for screening for malignant neoplasm of cervix
CPT/HCPCS: 77063; 77067; 87624; 88175; G0145

== ENCOUNTER → 2022-12-30 | Outpatient (CLI) | payer MEDICARE, OTHER, SELFPAY ==
[2023-01-08 15:29] LABS: HPV APTIMA, High Risk Negative (Negative)
== END | disposition home or self-care (01) ==
LOC: LABSPEC 12:21
PROVIDERS: PCP Family Medicine; Referring Provider Nurse Practitioner Women's Health; Visit Provider Nurse Practitioner Women's Health
DX: C53.9 Malignant neoplasm of cervix uteri, unspecified (principal); Z12.4 Encounter for screening for malignant neoplasm of cervix
CPT/HCPCS: 87624; 88175; G0145

== ENCOUNTER → 2023-09-28 | Outpatient (CLI) | payer MEDICARE, OTHER, SELFPAY ==
[2023-09-28 11:43] LABS: CRP 3.02 mg/L (0.0-3.0)
[2023-09-29 15:08] LABS: Endomysial Antibody IgA Negative (Negative); Immunoglobulin A 238 mg/dL (64-422); t-Transglutaminase IgA <2 U/mL (0-3)
== END | disposition home or self-care (01) ==
LOC: MTLAB 09:20
PROVIDERS: PCP Family Medicine; Referring Provider Internal Medicine Gastroenterology; Visit Provider Internal Medicine Gastroenterology
DX: R19.7 Diarrhea, unspecified (principal)
CPT/HCPCS: 36415; 82784; 83516; 86140; 86255